=== PATIENT | male | born 1990 | race Caucasian/White ===

== ENCOUNTER 2018-04-08 20:53 | Emergency (ER) | payer OTHER, MEDICAID, SELFPAY ==
[2018-04-08 20:57] VITALS: BP 104/66; PULSE 80; RESP 20; TEMP 36.2; O2SAT 97; BMI 20.7
--- NOTE | 2018-04-08 21:56 | ED.ASTHMA ---
HPI - Asthma General Chief Complaint: Asthma Stated Complaint: ASTHMA ATTACK Time Seen by Provider: 04/08/18 21:51 Source: patient Mode of arrival: ambulatory Limitations: no limitations History of Present Illness HPI Narrative: Patient is a 27-year-old male who has a history of asthma. He ran out of his inhaler a few days ago he tried to get into his primary but has not made yet. Tonight he had acute shortness of breath an asthma attack. He was around his cats, he is allergic to cats on he does not want to get rid of his cats. Feeling better now that he is in the ED. complaint: asthma attack Related Data Home Medications Medication Instructions Recorded Confirmed albuterol sulfate [Proventil HFA] 2 puff INH Q4HP PRN 04/08/18 04/08/18 Previous Rx's Medication Instructions Recorded albuterol sulfate 2 puff INHALATION Q4-6H PRN #6.7 04/08/18 gram Allergies Allergy/AdvReac Type Severity Reaction Status Date / Time cat dander Allergy Intermediate Verified 04/08/18 21:02 Review of Systems Review of Systems All systems reviewed & are unremarkable except as noted in HPI and below Constitutional Denies chills, Denies fever(s), Denies lethargy and Denies weakness ENT Ears, Nose, Mouth, and Throat: Denies change in voice, Denies neck pain and Denies sore throat Cardiovascular Denies chest pain, Denies irregular heart rhythm, Denies lightheadedness, Denies palpitations and Denies orthopnea Respiratory Reports system reviewed and no additional complaints, except as docu Gastrointestinal Gastrointestinal: Denies abdominal pain, Denies change in bowel habits, Denies diarrhea, Denies nausea and Denies vomiting Musculoskeletal Denies neck pain Integumentary/Breasts Denies pruritus, Denies erythema, Denies rash and Denies wounds Neurologic Denies weakness Endocrine Denies palpitations Exam Initial Vital Signs Initial Vital Signs: Vital Signs Temperature 97.2 F L 04/08/18 20:57 Pulse Rate 80 04/08/18 20:57 Respiratory Rate 20 04/08/18 20:57 Blood Pressure 104/66 04/08/18 20:57 Pulse Oximetry 97 04/08/18 20:57 Const General: cooperative and well developed Nutritional Appearance: well nourished Orientation: alert, awake, oriented x3 and not confused Resp Effort & Inspection: normal respiratory effort, able to speak in complete sentences, no respiratory distress and no use of accessory muscles Auscultation: clear to auscultation bilaterally, no rales, no rhonchi and no wheezes Cardio Rate: regular rate Rhythm: regular rhythm Heart Sounds: no click, no gallops, no murmurs and no rubs Pulses: normal peripheral pulses Skin General: no rashes or lesions noted, No jaundice and No petechiae PFSH Medical History Asthma (Acute) Social History Smoking Status: Never smoker Course Orders Ordered: Discontinued Medications Albuterol (Ventolin Hfa Prepack) 1 box MISC SEEINSTR ONE Stop: 04/08/18 21:56 Last Admin: 04/08/18 21:58 Dose: 1 box Vital Signs - 8 hr 04/08/18 20:57 04/08/18 22:03 Temperature 97.2 F L Pulse Rate 80 Respiratory Rate 20 18 Blood Pressure 104/66 Pulse Oximetry 97 100 MDM - Asthma MDM Narrative Medical decision making narrative: The patient appears in no acute distress. He is feeling much better now that he is not around his cats. We discussed how triggers can make asthma worse. He understands. He has a spacer at home he is well informed on how to use it. Discharge Plan Departure Patient Disposition: Home, Self-Care Clinical Impression: Mild intermittent asthma without complication Discharge Date/Time: 04/08/18 22:00 Interventions: ED Discharge Assessment Last Done: 04/08/18 22:03 Instructions: Asthma -- Adult Activity Restrictions/Additional Instructions: *You have been diagnosed with asthma exacerbation *What to do: Try to avoid triggers *Take medications as directed *Follow up with your primary care provider in 2-3 days *Return to ER if you should have increasing chest pain, shortness of breath or any new, worsening or concerning symptoms Prescriptions: New albuterol sulfate 90 mcg/actuation HFA aerosol inhaler 2 puff INHALATION Q4-6H PRN (Reason: shortness of breath or wheezing) Qty: 6.7 RF: 0 No Action albuterol sulfate [Proventil HFA] 90 MCG/PUFF HFA aerosol inhaler 2 puff INH Q4HP PRN (Reason: Shortness Of Breath Or Wheezing) RF: 0 Referrals: Edward Daugherty MD [Primary Care Provider] -
[2018-04-08] MEDS: ALBUTEROL HFA PREPACK 1 BOX MISC (21:58)
[2018-04-08 22:03] VITALS: RESP 18; O2SAT 100
== END 2018-04-08 22:00 | disposition home or self-care (01) ==
PROVIDERS: Emergency Provider Emergency Medicine; PCP Family Medicine
DX: J45.901 Unspecified asthma with (acute) exacerbation (principal)
CPT/HCPCS: 99282; 99283

== ENCOUNTER 2018-05-02 11:56 | Emergency (ER) | payer OTHER, MEDICAID, SELFPAY ==
[2018-05-02 12:03] VITALS: BP 128/81; PULSE 93; RESP 20; TEMP 36.5; O2SAT 97; BMI 19.2
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
[2018-05-02] MEDS: ALBUTEROL/IPRATROPIUM 3 ML AMPUL 6 ML INH (12:14)
[2018-05-02] MEDS: ALBUTEROL 2.5 MG/3 ML NEB (ADULT) INH (12:23)
[2018-05-02 12:50] VITALS: PULSE 74; RESP 22; O2SAT 93
[2018-05-02] MEDS: predniSONE 20 MG TABLET 40 MG PO (13:13)
[2018-05-02 13:14] VITALS: BP 117/68; PULSE 102; RESP 26; O2SAT 98
[2018-05-02] MEDS: ALBUTEROL HFA PREPACK 1 BOX MISC (13:40)
== END 2018-05-02 13:58 | disposition home or self-care (01) ==
PROVIDERS: Emergency Provider Nurse Practitioner Family; PCP Family Medicine
DX: J45.901 Unspecified asthma with (acute) exacerbation (principal)
CPT/HCPCS: 94150; 94640; 99283; 99284; J7613

== ENCOUNTER 2018-06-17 11:55 | Emergency (ER) | payer OTHER, MEDICAID, SELFPAY ==
[2018-06-17 12:04] VITALS: BP 137/96; PULSE 93; RESP 24; TEMP 36.5; O2SAT 98
[2018-06-17] MEDS: ALBUTEROL/IPRATROPIUM 3 ML AMPUL INH (12:12)
[2018-06-17 12:20] VITALS: PULSE 87; RESP 20; O2SAT 97
--- NOTE | 2018-06-17 12:20 | ED_ITS ---
HPI - URI/Sore Throat General Chief Complaint: Upper Respiratory Symptoms Stated Complaint: asthma attack Time Seen by Provider: 06/17/18 12:16 History of Present Illness HPI Narrative: HPI 27-year-old male asthmatic presents with wheezing and shortness of breath has been progressively worsening over the last half day. Patient notes a history of provocation of his asthma with Dander exposure, patient recently moved into his mother's house with multiple cats. Ran out of his albuterol. Moved to the area one month ago and has yet to establish primary care. No recent cough, fevers, chills. No history of DVT or PE. ROS with no recent constitutional symptoms. Exam Gen: Pleasant, non-toxic appearing, resting comfortably HEENT: NC, AT, PEERL, EOMI. Resp: minimal extra wheezing, otherwise clear to auscultation bilaterally. Unlabored respirations with a normal work of breathing. Card: Regular rate and rhythm. Extremities warm and well perfused. GI: Non-distended. : Deferred MSK: No visible deformities, strength and tone without visually appreciable deficit. Neuro: AO x 3, no facial asymmetry, vision and hearing WNL. Heme/Lymph: Deferred Skin: Normal color with no visible lesions (other than noted above). Psych: Mood and affect appropriate. MDM Previous chart, nursing note, and vitals reviewed. A/P: 27-year-old male asthmatic presents with wheezing and shortness of breath has been progressively worsening over the last half day. Patient given albuterol by respiratory therapist prior to my evaluation, had tight wheezing throughout with near complete resolution following one albuterol no. Patient given Decadron, provided with albuterol, spacer, teaching, and outpatient prescription for a further inhaler. Patient provided with resources for PCP follow-up. Given history and vitals no indication for chest imaging. Impression: asthma exacerbation Related Data Home Medications Medication Instructions Recorded Confirmed albuterol sulfate [Proventil HFA] 2 puff INH Q4HP PRN 04/08/18 04/08/18 Previous Rx's Medication Instructions Recorded albuterol sulfate 2 puff INHALATION Q4-6H PRN #6.7 04/08/18 gram albuterol sulfate 2 puff INHALATION Q4-6H PRN #8 gram 05/02/18 prednisone 40 mg PO DAILY #8 tab 05/02/18 Allergies Allergy/AdvReac Type Severity Reaction Status Date / Time cat dander Allergy Intermediate Verified 04/08/18 21:02 PENDING SALE TO [facility] Social History Smoking Status: Never smoker Exam Initial Vital Signs Initial Vital Signs: Vital Signs Temperature 97.7 F 06/17/18 12:04 Pulse Rate 93 H 06/17/18 12:04 Respiratory Rate 24 06/17/18 12:04 Blood Pressure 137/96 H 06/17/18 12:04 Pulse Oximetry 98 06/17/18 12:04 Course Orders Ordered: Discontinued Medications Albuterol/Ipratropium (Duoneb) 3 ml INH NOW ONE Stop: 06/17/18 12:08 Last Admin: 06/17/18 12:12 Dose: 3 ml Vital Signs - 8 hr 06/17/18 12:04 Temperature 97.7 F Pulse Rate 93 H Respiratory Rate 24 Blood Pressure 137/96 H Pulse Oximetry 98 Discharge Plan Departure Prescriptions: No Action albuterol sulfate [Proventil HFA] 90 MCG/PUFF HFA aerosol inhaler 2 puff INH Q4HP PRN (Reason: Shortness Of Breath Or Wheezing) RF: 0 albuterol sulfate 90 mcg/actuation HFA aerosol inhaler 2 puff INHALATION Q4-6H PRN (Reason: shortness of breath or wheezing) Qty: 6.7 RF: 0 albuterol sulfate 90 mcg/actuation HFA aerosol inhaler 2 puff INHALATION Q4-6H PRN (Reason: shortness of breath or wheezing) Qty: 8 RF: 0 prednisone 20 mg tablet 40 mg PO DAILY Qty: 8 RF: 0
[2018-06-17 13:06] VITALS: BP 119/80; PULSE 86; RESP 14; O2SAT 96
[2018-06-17] MEDS: DEXAMETHASONE 4 MG TABLET 16 MG PO (13:14)
== END 2018-06-17 13:45 | disposition home or self-care (01) ==
PROVIDERS: Emergency Provider Emergency Medicine; PCP Family Medicine
DX: J45.901 Unspecified asthma with (acute) exacerbation (principal)
CPT/HCPCS: 94150; 94640; 99282; 99283

== ENCOUNTER 2018-07-15 18:51 | Emergency (ER) | payer OTHER, MEDICAID, SELFPAY ==
[2018-07-15 18:59] VITALS: BP 124/79; PULSE 79; RESP 20; TEMP 36.9; O2SAT 96
[2018-07-15 19:08] VITALS: PULSE 88; RESP 16; O2SAT 96
[2018-07-15] MEDS: ALBUTEROL 2.5 MG/3 ML NEB (ADULT) 5 MG INH (19:13)
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
[2018-07-15] MEDS: predniSONE 20 MG TABLET 40 MG PO (19:56)
[2018-07-15 20:43] VITALS: BP 115/65; PULSE 96; RESP 17; O2SAT 100
== END 2018-07-15 20:52 | disposition home or self-care (01) ==
PROVIDERS: Emergency Provider Nurse Practitioner Family; PCP Family Medicine
DX: J45.901 Unspecified asthma with (acute) exacerbation (principal)
CPT/HCPCS: 94640; 99282; 99283; J7613

== ENCOUNTER 2018-10-03 19:21 | Emergency (ER) | payer OTHER, MEDICAID, SELFPAY ==
[2018-10-03 19:26] VITALS: BP 138/88; PULSE 96; RESP 21; TEMP 37.1; O2SAT 97
[2018-10-03] MEDS: ALBUTEROL 2.5 MG/3 ML NEB (ADULT) INH (19:29)
[2018-10-03] MEDS: ALBUTEROL/IPRATROPIUM 3 ML AMPUL INH (19:29)
[2018-10-03 19:33] VITALS: PULSE 84; RESP 20; O2SAT 99
[2018-10-03] MEDS: predniSONE 20 MG TABLET 40 MG PO (19:36)
--- NOTE | 2018-10-03 19:37 | ED_ITS ---
HPI - Asthma <Shirley Iverson PA-C - Last Filed: 10/03/18 21:17> General Chief Complaint: Shortness of Breath/Dyspnea Stated Complaint: asthma attack Time Seen by Provider: 10/03/18 19:25 Source: patient Mode of arrival: ambulatory Limitations: no limitations History of Present Illness HPI Narrative: This 28-year-old male comes to ED with asthma attack today. He states that he ran out of his albuterol inhaler. He had mild symptoms in the last day and feels like the exacerbation is due to his allergies as he has noted increased watery itchy eyes. He states that a few hours ago, he began to have chest tightness and shortness of breath typical of his asthma, along with wheezing. He denies chest pain. He has not had any recent URI symptoms, fever , or other new symptoms. He states that he does have Symbicort at home, but moved and had not been able to find this, so just restarted today. He states that he needs to use his albuterol almost every day when he has it. Related Data Previous Rx's Medication Instructions Recorded albuterol sulfate See Label Instructions .ROUTE 06/17/18 .COMPLEX #18 gram albuterol sulfate [Ventolin HFA] 2 puff INHALATION Q4-6H PRN #6.7 07/15/18 gram prednisone 40 mg PO DAILY 3 Days #6 tab 10/03/18 Allergies Allergy/AdvReac Type Severity Reaction Status Date / Time cat dander Allergy Intermediate Verified 04/08/18 21:02 Review of Systems <Shirley Iverson PA-C - Last Filed: 10/03/18 21:17> Review of Systems All systems reviewed & are unremarkable except as noted in HPI and below Exam <Shirley Iverson PA-C - Last Filed: 10/03/18 21:17> Narrative Exam Narrative: GENERAL APPEARANCE: Patient sitting comfortably, in no distress. HEENT: PERRL, EOMI, normal oropharynx NECK/THYROID: Neck supple, no masses LUNGS: Generalized wheeze with reduced air entry throughout. Following nebulizers good air entry, very soft generalized expiratory wheeze HEART: Regular rate and rhythm without murmur, normal S1, S2, no S3 or S4. EXTREMITIES: No edema. NEUROLOGIC: Alert and oriented, normal speech, gait and coordination. Initial Vital Signs Initial Vital Signs: Vital Signs Temperature 98.7 F 10/03/18 19:26 Pulse Rate 96 H 10/03/18 19:26 Respiratory Rate 21 10/03/18 19:26 Blood Pressure 138/88 10/03/18 19:26 Pulse Oximetry 97 10/03/18 19:26 <Marianne Frost DO - Last Filed: 10/04/18 03:01> Initial Vital Signs Initial Vital Signs: Vital Signs Temperature 98.7 F 10/03/18 19:26 Pulse Rate 96 H 10/03/18 19:26 Respiratory Rate 21 10/03/18 19:26 Blood Pressure 138/88 10/03/18 19:26 Pulse Oximetry 97 10/03/18 19:26 Course <Shirley Iverson PA-C - Last Filed: 10/03/18 21:17> Additional Information: Patient is feeling markedly improved following nebulizer treatments and prednisone. He agreed to return if any acutely worsening symptoms again, otherwise will continue prednisone for a few days, restart Symbicort while on this, and was given an albuterol inhaler as well. He will also talk with his PCP about getting a new nebulizer machine for home. Orders Ordered: Discontinued Medications Albuterol (Ventolin) 2.5 mg INH NOW ONE Stop: 10/03/18 19:26 Last Admin: 10/03/18 19:29 Dose: 2.5 mg Albuterol (Ventolin Hfa Prepack) 1 box MISC SEEINSTR ONE Stop: 10/03/18 20:15 Last Admin: 10/03/18 20:22 Dose: 1 box Albuterol/Ipratropium (Duoneb) 3 ml INH NOW ONE Stop: 10/03/18 19:26 Last Admin: 10/03/18 19:29 Dose: 3 ml Prednisone (Deltasone) 40 mg PO NOW ONE Stop: 10/03/18 19:30 Last Admin: 10/03/18 19:36 Dose: 40 mg Vital Signs - 8 hr 10/03/18 19:26 10/03/18 19:33 10/03/18 20:34 Temperature 98.7 F Pulse Rate 96 H 84 85 Respiratory Rate 21 20 15 Blood Pressure 138/88 Blood Pressure [Right Arm] 109/63 Pulse Oximetry 97 99 98 <Marianne Frost DO - Last Filed: 10/04/18 03:01> Orders Ordered: Discontinued Medications Albuterol (Ventolin) 2.5 mg INH NOW ONE Stop: 10/03/18 19:26 Last Admin: 10/03/18 19:29 Dose: 2.5 mg Albuterol (Ventolin Hfa Prepack) 1 box MISC SEEINSTR ONE Stop: 10/03/18 20:15 Last Admin: 10/03/18 20:22 Dose: 1 box Albuterol/Ipratropium (Duoneb) 3 ml INH NOW ONE Stop: 10/03/18 19:26 Last Admin: 10/03/18 19:29 Dose: 3 ml Prednisone (Deltasone) 40 mg PO NOW ONE Stop: 10/03/18 19:30 Last Admin: 10/03/18 19:36 Dose: 40 mg Vital Signs - 8 hr 10/03/18 19:26 10/03/18 19:33 10/03/18 20:34 Temperature 98.7 F Pulse Rate 96 H 84 85 Respiratory Rate 21 20 15 Blood Pressure 138/88 Blood Pressure [Right Arm] 109/63 Pulse Oximetry 97 99 98 Discharge Plan Departure Patient Disposition: Home Clinical Impression: Asthma exacerbation Discharge Date/Time: 10/03/18 20:39 Interventions: ED Discharge Assessment Last Done: 10/03/18 20:38 Instructions: DI for Asthma -- Adult Activity Restrictions/Additional Instructions: These return right away as we talked about if you have any attending symptoms again. Otherwise, take your next dose of prednisone tomorrow (I have sent a prescription to the pharmacy for you). Use the albuterol inhaler we gave you as often as needed. Please restart your Symbicort when you get home tonight and use this regularly as previously instructed. Please follow-up with your PCP next week for recheck and determine whether any medication changes are needed. You should also get a new insurance referral for a nebulizer machine Prescriptions: New prednisone 20 mg tablet 40 mg PO DAILY 3 Days Qty: 6 RF: 0 No Action albuterol sulfate [Ventolin HFA] 90 mcg/actuation HFA aerosol inhaler 2 puff INHALATION Q4-6H PRN (Reason: shortness of breath or wheezing) Qty: 6.7 RF: 0 albuterol sulfate 90 mcg/actuation HFA aerosol inhaler See Label Instructions .ROUTE .COMPLEX Qty: 18 RF: 0 Referrals: Edward Daugherty MD [Primary Care Provider] - <Marianne Frost DO - Last Filed: 10/04/18 03:01> Cosign ED Attending Cosignature Attestation: I was immediately available in the department for consultation. This documentation has been reviewed and I agree with assessment and plan. Supervised by Marianne Frost DO
[2018-10-03] MEDS: ALBUTEROL HFA PREPACK 1 BOX MISC (20:22)
[2018-10-03 20:34] VITALS: BP 109/63; PULSE 85; RESP 15; O2SAT 98
== END 2018-10-03 20:39 | disposition home or self-care (01) ==
PROVIDERS: Emergency Provider Internal Medicine; PCP Family Medicine
DX: J45.901 Unspecified asthma with (acute) exacerbation (principal)
CPT/HCPCS: 94640; 99282; 99283; J7613

== ENCOUNTER 2018-11-23 19:43 | Emergency (ER) | payer OTHER, MEDICAID, SELFPAY ==
[2018-11-23 19:48] VITALS: BP 130/74; PULSE 103; RESP 22; TEMP 36.6; O2SAT 97; BMI 18.6
[2018-11-23 19:50] VITALS: O2SAT 98
[2018-11-23] MEDS: ALBUTEROL/IPRATROPIUM 3 ML AMPUL INH ×2 (19:50→19:54)
--- NOTE | 2018-11-23 20:03 | ED.ASTHMA ---
HPI - Asthma <Shirley Iverson PA-C - Last Filed: 11/23/18 22:31> General Chief Complaint: Asthma Stated Complaint: asthma attack Time Seen by Provider: 11/23/18 20:03 Source: patient Mode of arrival: ambulatory Limitations: no limitations History of Present Illness HPI Narrative: This 28-year-old male returns for recurrent acute asthma exacerbation that he believes is related to cat dander (he states that his cat was sleeping on his pillow and ran out a pillow case). He states that he started to have tight chest and wheeze from this. Took Benadryl at home which sometimes calms his symptoms, but tonight it did not so he came in for nebulizer treatment. He states that he has not been sick, has not had a fever, and is feeling much better after nebulizer treatments. He is certain this is a typical asthma exacerbation for him. He states that he has not had along symptoms, does not feel like he needs steroids for this. He states that he ran out of his albuterol just today and has not been able to get an appointment with his PCP since I last saw him in September. He does have steroid inhaler at home, which he thinks is Flovent but not sure of the dose. He does use that in the morning. Related Data Previous Rx's Medication Instructions Recorded albuterol sulfate See Label Instructions .ROUTE 06/17/18 .COMPLEX #18 gram albuterol sulfate [Ventolin HFA] 2 puff INHALATION Q4-6H PRN #6.7 07/15/18 gram albuterol sulfate 2 inhalation INHALATION Q4H #1 each 11/23/18 Allergies Allergy/AdvReac Type Severity Reaction Status Date / Time cat dander Allergy Intermediate Verified 04/08/18 21:02 Review of Systems <Shirley Iverson PA-C - Last Filed: 11/23/18 22:31> Review of Systems All systems reviewed & are unremarkable except as noted in HPI and below Exam <ANNE-MARIE Frost Last Filed: 11/23/18 22:31> Narrative Exam Narrative: GENERAL APPEARANCE: Patient sitting comfortably, in no distress. EYES: PERRL, EOMI. ORAL CAVITY: Normal oropharynx. THROAT: Clear. NECK/THYROID: Neck supple, full range of motion, no cervical lymphadenopathy. LUNGS: There is some very faint expiratory wheeze in the mid to upper left lobe, otherwise clear to auscultation. No cough on exam. Patient speaks easily in complete sentences HEART: RRR without murmur, nl S1, S2, no S3 or S4. Initial Vital Signs Initial Vital Signs: Vital Signs Temperature 97.9 F 11/23/18 19:48 Pulse Rate 103 H 11/23/18 19:48 Respiratory Rate 22 11/23/18 19:48 Blood Pressure 130/74 11/23/18 19:48 Pulse Oximetry 97 11/23/18 19:48 <Checo Esteban DO - Last Filed: 11/23/18 22:49> Initial Vital Signs Initial Vital Signs: Vital Signs Temperature 97.9 F 11/23/18 19:48 Pulse Rate 103 H 11/23/18 19:48 Respiratory Rate 22 11/23/18 19:48 Blood Pressure 130/74 11/23/18 19:48 Pulse Oximetry 97 11/23/18 19:48 Course <Shirley Iverson PA-C - Last Filed: 11/23/18 22:31> Orders Ordered: Discontinued Medications Albuterol/Ipratropium (Duoneb) 3 ml INH NOW ONE Stop: 11/23/18 19:50 Last Admin: 11/23/18 19:50 Dose: 3 ml Albuterol/Ipratropium (Duoneb) 3 ml INH NOW ONE Stop: 11/23/18 19:54 Last Admin: 11/23/18 19:54 Dose: 3 ml Vital Signs - 8 hr 11/23/18 19:48 11/23/18 19:50 Temperature 97.9 F Pulse Rate 103 H Respiratory Rate 22 Blood Pressure 130/74 Pulse Oximetry 97 98 <Checo Esteban DO - Last Filed: 11/23/18 22:49> Orders Ordered: Discontinued Medications Albuterol/Ipratropium (Duoneb) 3 ml INH NOW ONE Stop: 11/23/18 19:50 Last Admin: 11/23/18 19:50 Dose: 3 ml Albuterol/Ipratropium (Duoneb) 3 ml INH NOW ONE Stop: 11/23/18 19:54 Last Admin: 11/23/18 19:54 Dose: 3 ml Vital Signs - 8 hr 11/23/18 19:48 11/23/18 19:50 Temperature 97.9 F Pulse Rate 103 H Respiratory Rate 22 Blood Pressure 130/74 Pulse Oximetry 97 98 Discharge Plan Departure Patient Disposition: Home Clinical Impression: Asthma exacerbation Discharge Date/Time: 11/23/18 20:31 Interventions: ED Discharge Assessment Last Done: 11/23/18 20:31 Instructions: DI for Asthma -- Adult Activity Restrictions/Additional Instructions: I agree with you that your asthma is related to your allergies, so please use her albuterol as often as needed this evening with your spacer. When you are at the pharmacy, grain picker some [id number] Zyrtec (cetirizine, 10 mg), and start taking once daily when you get home. If you need extra you can take a 2nd dose or take Benadryl if you start to have an exacerbation. Since you have Flovent at home but are not sure what dose, if it is Flovent 44, do 8 puffs daily either once daily or 4 puffs twice daily. If it is Flovent 110, do 4 puffs daily. If it is Flovent 220, do [address] with Dr[address] Daugherty or 1 of his colleagues in the next week, and talk with them about having a home nebulizer and medication for this on hand at home. Please return right away if you have any acutely worsening symptoms again in the interim. Prescriptions: New albuterol sulfate 90 mcg/actuation aerosol powdr breath activated 2 inhalation INHALATION Q4H Qty: 1 RF: 0 No Action albuterol sulfate [Ventolin HFA] 90 mcg/actuation HFA aerosol inhaler 2 puff INHALATION Q4-6H PRN (Reason: shortness of breath or wheezing) Qty: 6.7 RF: 0 albuterol sulfate 90 mcg/actuation HFA aerosol inhaler See Label Instructions .ROUTE .COMPLEX Qty: 18 RF: 0 Referrals: Edward Daugherty MD [Primary Care Provider] - <Checo Esteban DO - Last Filed: 11/23/18 22:49> Cosign ED Attending Manny Attestation: I was available for consultation during this patient's emergency department encounter
== END 2018-11-23 20:31 | disposition home or self-care (01) ==
PROVIDERS: Emergency Provider Internal Medicine; PCP Family Medicine
DX: J45.909 Unspecified asthma, uncomplicated (principal)
CPT/HCPCS: 94640; 99282; 99283

== ENCOUNTER 2018-12-25 17:20 | Emergency (ER) | payer OTHER, MEDICAID, SELFPAY ==
[2018-12-25 17:31] VITALS: BP 124/90; PULSE 99; RESP 22; TEMP 36.8; O2SAT 95
[2018-12-25 17:36] VITALS: PULSE 95; RESP 16; O2SAT 99
[2018-12-25] MEDS: ALBUTEROL 2.5 MG/3 ML NEB (ADULT) INH (17:36)
[2018-12-25] MEDS: ALBUTEROL/IPRATROPIUM 3 ML AMPUL INH (17:36)
--- NOTE | 2018-12-25 18:19 | ED.ASTHMA ---
HPI - Asthma <Shirley Iverson PA-C - Last Filed: 12/25/18 20:42> General Chief Complaint: Asthma Stated Complaint: ASHMA ATTACK & COUGH Time Seen by Provider: 12/25/18 17:37 Source: patient Mode of arrival: ambulatory Limitations: no limitations History of Present Illness HPI Narrative: This 28-year-old male comes in due to recurrent asthma exacerbation. He states that he ran out of his albuterol yesterday. He states that he has some mild cold symptoms, mainly with stuffy nose and a bit of cough, and thinks this is what caused exacerbation this evening. He states that he is not had known fever, nor chills or sweats. He does not have sinus pain, earache or sore throat and states he does not feel achy enough that he thinks he has the flu. He states that he had sudden worsening with wheeze and shortness of breath which is typical for his exacerbations, and he feels a million times better after nebulizer treatment. He states that he has been using steroid inhaler, has a multitude of them at home and has follow-up with PCP planned on Thursday. He denies any other complaints. Related Data Previous Rx's Medication Instructions Recorded albuterol sulfate See Rx Instructions .ROUTE 06/17/18 .COMPLEX #18 gram albuterol sulfate [Ventolin HFA] 2 puff INHALATION Q4-6H PRN #6.7 07/15/18 gram albuterol sulfate 2 inhalation INHALATION Q4H #1 each 11/23/18 Allergies Allergy/AdvReac Type Severity Reaction Status Date / Time cat dander Allergy Intermediate Verified 04/08/18 21:02 Review of Systems <Shirley Iverson PA-C - Last Filed: 12/25/18 20:42> Review of Systems ROS Unobtainable: All systems reviewed & are unremarkable except as noted in HPI and below Exam <Shirley Iverson PA-C - Last Filed: 12/25/18 20:42> Narrative Exam Narrative: GENERAL APPEARANCE: Patient sitting comfortably, in no distress. HEAD: No sinus TTP. EYES: PERRL, EOMI. EARS: Normal auditory canals, TMS intact occluded by cerumen ORAL CAVITY: Normal oropharynx. THROAT: Clear. NECK/THYROID: Neck supple, full range of motion, no cervical lymphadenopathy. LUNGS: Generalized expiratory wheezes, no crackles, no cough on exam. Good AE, speaks comfortably in complete sentences HEART: RRR without murmur, nl S1, S2, no S3 or S4. Initial Vital Signs Initial Vital Signs: Vital Signs Temperature 98.3 F 12/25/18 17:31 Pulse Rate 99 H 12/25/18 17:31 Respiratory Rate 22 12/25/18 17:31 Blood Pressure 124/90 12/25/18 17:31 Pulse Oximetry 95 12/25/18 17:31 <Checo Esteban DO - Last Filed: 12/25/18 21:19> Initial Vital Signs Initial Vital Signs: Vital Signs Temperature 98.3 F 12/25/18 17:31 Pulse Rate 99 H 12/25/18 17:31 Respiratory Rate 22 12/25/18 17:31 Blood Pressure 124/90 12/25/18 17:31 Pulse Oximetry 95 12/25/18 17:31 PFSH <Shirley Iverson PA-C - Last Filed: 12/25/18 20:42> Family History Other Family history non-contributory Social History Smoking Status: Never smoker Social History Smoking Status: Never smoker Course <Shirley Iverson PA-C - Last Filed: 12/25/18 20:42> Orders Ordered: Discontinued Medications Albuterol (Ventolin) 2.5 mg INH NOW ONE Stop: 12/25/18 17:34 Last Admin: 12/25/18 17:36 Dose: 2.5 mg Albuterol (Ventolin Hfa Prepack) 1 box MISC SEEINSTR ONE Stop: 12/25/18 18:25 Last Admin: 12/25/18 18:33 Dose: 1 box Albuterol/Ipratropium (Duoneb) 3 ml INH NOW ONE Stop: 12/25/18 17:32 Last Admin: 12/25/18 17:36 Dose: 3 ml Vital Signs - 8 hr 12/25/18 17:31 12/25/18 17:36 12/25/18 18:43 Temperature 98.3 F Pulse Rate 99 H 95 H 112 H Respiratory Rate 22 16 20 Blood Pressure 124/90 119/87 Pulse Oximetry 95 99 97 <Checo Esteban DO - Last Filed: 12/25/18 21:19> Orders Ordered: Discontinued Medications Albuterol (Ventolin) 2.5 mg INH NOW ONE Stop: 12/25/18 17:34 Last Admin: 12/25/18 17:36 Dose: 2.5 mg Albuterol (Ventolin Hfa Prepack) 1 box MISC SEEINSTR ONE Stop: 12/25/18 18:25 Last Admin: 12/25/18 18:33 Dose: 1 box Albuterol/Ipratropium (Duoneb) 3 ml INH NOW ONE Stop: 12/25/18 17:32 Last Admin: 12/25/18 17:36 Dose: 3 ml Vital Signs - 8 hr 12/25/18 17:31 12/25/18 17:36 12/25/18 18:43 Temperature 98.3 F Pulse Rate 99 H 95 H 112 H Respiratory Rate 22 16 20 Blood Pressure 124/90 119/87 Pulse Oximetry 95 99 97 Discharge Plan Departure Patient Disposition: Home Clinical Impression: Asthma with acute exacerbation Qualifiers: Asthma severity: moderate Asthma persistence: persistent Qualified Code(s): J45.41 - Moderate persistent asthma with (acute) exacerbation Discharge Date/Time: 12/25/18 18:43 Interventions: ED Discharge Assessment Last Done: 12/25/18 18:43 Instructions: DI for Asthma -- Adult Activity Restrictions/Additional Instructions: Please return immediately as we talked about if you have acutely worsening symptoms again. Otherwise use the albuterol inhaler we have given you as needed. Continue your steroid inhalers. Follow up with her PCP on Thursday and take all of your steroid inhalers with you to determine the best treatment regimen. Prescriptions: No Action albuterol sulfate [Ventolin HFA] 90 mcg/actuation HFA aerosol inhaler 2 puff INHALATION Q4-6H PRN (Reason: shortness of breath or wheezing) Qty: 6.7 RF: 0 albuterol sulfate 90 mcg/actuation aerosol powdr breath activated 2 inhalation INHALATION Q4H Qty: 1 RF: 0 albuterol sulfate 90 mcg/actuation HFA aerosol inhaler See Rx Instructions .ROUTE .COMPLEX Qty: 18 RF: 0 Referrals: Edward Daugherty MD [Primary Care Provider] - <Checo Esteban DO - Last Filed: 12/25/18 21:19> Cosign ED Attending Carlieature Attestation: I was available for consultation during this patient's emergency department encounter
[2018-12-25] MEDS: ALBUTEROL HFA PREPACK 1 BOX MISC (18:33)
[2018-12-25 18:43] VITALS: BP 119/87; PULSE 112; RESP 20; O2SAT 97
== END 2018-12-25 18:43 | disposition home or self-care (01) ==
PROVIDERS: Emergency Provider Internal Medicine; PCP Family Medicine
DX: J45.41 Moderate persistent asthma with (acute) exacerbation (principal)
CPT/HCPCS: 94640; 99283; J7613

== ENCOUNTER 2018-12-26 17:45 | Emergency (ER) | payer OTHER, MEDICAID, SELFPAY ==
--- NOTE | 2018-12-26 17:52 | ED_ITS ---
HPI - Asthma <Shirley Iverson PA-C - Last Filed: 12/26/18 22:00> General Chief Complaint: Shortness of Breath/Dyspnea Stated Complaint: asthma attack Time Seen by Provider: 12/26/18 17:49 Source: patient Mode of arrival: ambulatory Limitations: no limitations History of Present Illness HPI Narrative: this 28-year-old male with a long history of asthma exacerbations returns due to worsening symptoms today. He states he is feeling worse in general with more cough and green sputum production, generalized body aches, and his ribs are sore. He has felt tight in the chest and had wheeze and dyspnea, and states his albuterol only works for a few minutes. He thinks he has had some fever today as well as he has felt sweaty prior to coming here. he has not had flu vaccine. He states he does not have earache or sinus pain. Minimal sore throat. He denies any other new complaints and is feeling markedly improved following nebulizer treatment. Related Data Previous Rx's Medication Instructions Recorded albuterol sulfate See Rx Instructions .ROUTE 06/17/18 .COMPLEX #18 gram albuterol sulfate [Ventolin HFA] 2 puff INHALATION Q4-6H PRN #6.7 07/15/18 gram albuterol sulfate 2 inhalation INHALATION Q4H #1 each 11/23/18 Allergies Allergy/AdvReac Type Severity Reaction Status Date / Time cat dander Allergy Intermediate Verified 04/08/18 21:02 Review of Systems <Shirley Iverson PA-C - Last Filed: 12/26/18 22:00> Review of Systems ROS Unobtainable: All systems reviewed & are unremarkable except as noted in HPI and below Exam <Shirley Iverson PA-C - Last Filed: 12/26/18 22:00> Initial Vital Signs Initial Vital Signs: Vital Signs Pulse Rate 130 H 12/26/18 17:55 Respiratory Rate 18 12/26/18 17:55 Pulse Oximetry 96 12/26/18 17:55 GENERAL APPEARANCE: Patient sitting comfortably after nebulizer treatments, in no distress. Initially speaking in short sentences HEAD: No sinus TTP. EYES: PERRL, EOMI. EARS: Normal auditory canals, TMS intact occluded by cerumen ORAL CAVITY: Normal oropharynx. THROAT: Clear. NECK/THYROID: Neck supple, full range of motion, no cervical lymphadenopathy. LUNGS: Generalized expiratory wheezes, no crackles, no cough on exam. Good AE, speaks comfortably in complete sentences following nebulizer treatments, still with generalized wheeze. Prior to discharge, patient has good breath sounds with very minimal expiratory wheeze and appears comfortable. HEART: RRR without murmur, nl S1, S2, no S3 or S4. <Checo Esteban DO - Last Filed: 12/26/18 22:30> Initial Vital Signs Initial Vital Signs: Vital Signs Pulse Rate 130 H 12/26/18 17:55 Respiratory Rate 18 12/26/18 17:55 Pulse Oximetry 96 12/26/18 17:55 PFSH <Shirley Iverson PA-C - Last Filed: 12/26/18 22:00> Social History Smoking Status: Never smoker Course <Shirley Iverson PA-C - Last Filed: 12/26/18 22:00> Additional Information: Patient is feeling much improved and wishes to be discharged home. He does not feel that he needs to come into the hospital tonight. He agrees to return if any acute worsening again. He was given another albuterol inhaler and a prednisone Pre pack. He will take 40 mg of prednisone tomorrow and follow up with Dr. Daugherty as planned tomorrow. Advised him to review his medications and again to discuss ordering a nebulizer for home use Orders Ordered: ED Orders 12/26/18 17:51 Influenza A and B by PCR Rapid Stat 12/26/18 18:17 XR chest 1V Stat Discontinued Medications Albuterol (Ventolin) 2.5 mg INH NOW ONE Stop: 12/26/18 17:50 Last Admin: 12/26/18 17:54 Dose: 2.5 mg Albuterol (Ventolin) 2.5 mg INH NOW ONE Stop: 12/26/18 18:58 Last Admin: 12/26/18 18:59 Dose: 2.5 mg Albuterol (Ventolin) 2.5 mg INH NOW ONE Stop: 12/26/18 19:00 Last Admin: 12/26/18 19:01 Dose: 2.5 mg Albuterol (Ventolin Hfa Prepack) 1 box MISC SEEINSTR ONE Stop: 12/26/18 19:27 Last Admin: 12/26/18 19:43 Dose: 1 box Albuterol/Ipratropium (Duoneb) 3 ml INH NOW ONE Stop: 12/26/18 17:50 Last Admin: 12/26/18 17:54 Dose: 3 ml Dexamethasone (Decadron) 10 mg IV NOW ONE Stop: 12/26/18 17:50 Last Admin: 12/26/18 18:00 Dose: 10 mg Sodium Chloride (Normal Saline 0.9%) 1,000 mls @ 1,000 mls/hr IV BOLUS ONE Stop: 12/26/18 19:16 Last Infusion: 12/26/18 19:50 Dose: 0 mls/hr Admin: 12/26/18 18:25 Dose: 1,000 mls/hr Ketorolac Tromethamine (Toradol) 30 mg IV NOW ONE Stop: 12/26/18 18:18 Last Admin: 12/26/18 18:24 Dose: 30 mg Prednisone (Deltasone 20 Mg Prepack) 1 bottle [facility] SEEINSTR ONE Stop: 12/26/18 19:27 Last Admin: 12/26/18 19:43 Dose: 1 bottle Vital Signs - 8 hr 12/26/18 17:55 12/26/18 18:02 12/26/18 19:01 Temperature 100.5 F H Pulse Rate 130 H 130 H 120 H Respiratory Rate 18 18 20 Blood Pressure 146/97 H Pulse Oximetry 96 96 92 12/26/18 19:50 Temperature Pulse Rate 91 H Respiratory Rate 19 Blood Pressure 122/91 H Pulse Oximetry 94 <Checo Estbean DO - Last Filed: 12/26/18 22:30> Orders Ordered: ED Orders 12/26/18 17:51 Influenza A and B by PCR Rapid Stat 12/26/18 18:17 XR chest 1V Stat Discontinued Medications Albuterol (Ventolin) 2.5 mg INH NOW ONE Stop: 12/26/18 17:50 Last Admin: 12/26/18 17:54 Dose: 2.5 mg Albuterol (Ventolin) 2.5 mg INH NOW ONE Stop: 12/26/18 18:58 Last Admin: 12/26/18 18:59 Dose: 2.5 mg Albuterol (Ventolin) 2.5 mg INH NOW ONE Stop: 12/26/18 19:00 Last Admin: 12/26/18 19:01 Dose: 2.5 mg Albuterol (Ventolin Hfa Prepack) 1 box MISC SEEINSTR ONE Stop: 12/26/18 19:27 Last Admin: 12/26/18 19:43 Dose: 1 box Albuterol/Ipratropium (Duoneb) 3 ml INH NOW ONE Stop: 12/26/18 17:50 Last Admin: 12/26/18 17:54 Dose: 3 ml Dexamethasone (Decadron) 10 mg IV NOW ONE Stop: 12/26/18 17:50 Last Admin: 12/26/18 18:00 Dose: 10 mg Sodium Chloride (Normal Saline 0.9%) 1,000 mls @ 1,000 mls/hr IV BOLUS ONE Stop: 12/26/18 19:16 Last Infusion: 12/26/18 19:50 Dose: 0 mls/hr Admin: 12/26/18 18:25 Dose: 1,000 mls/hr Ketorolac Tromethamine (Toradol) 30 mg IV NOW ONE Stop: 12/26/18 18:18 Last Admin: 12/26/18 18:24 Dose: 30 mg Prednisone (Deltasone 20 Mg Prepack) 1 bottle MISC SEEINSTR ONE Stop: 12/26/18 19:27 Last Admin: 12/26/18 19:43 Dose: 1 bottle Vital Signs - 8 hr 12/26/18 17:55 12/26/18 18:02 12/26/18 19:01 Temperature 100.5 F H Pulse Rate 130 H 130 H 120 H Respiratory Rate 18 18 20 Blood Pressure 146/97 H Pulse Oximetry 96 96 92 12/26/18 19:50 Temperature Pulse Rate 91 H Respiratory Rate 19 Blood Pressure 122/91 H Pulse Oximetry 94 MDM - Asthma <Shirley Iverson PA-C - Last Filed: 12/26/18 22:00> Lab Data Lab Results 12/26/18 Range/Units 17:51 Influenza A & B (PCR) Negative (Negative) Imaging Data Chest x-ray: Radiologist's impression: [address] [address] XRay Report Signed Patient: Fritz Ware [facility]#: [id number] : 1990Acct:[id number] Age/Sex: MDate of Service: 12/26/18 Loc: ED Accession Number: [id number] Procedure: XR chest 1V Ordering Provider: Shirley Iverson P.A-C PROCEDURE: XR CHEST 1V INDICATIONS: increased cough, sputum, asthma TECHNIQUE: One view of the chest was acquired. COMPARISON: None. FINDINGS: Surgical changes and devices: None. Lungs and pleura: Lungs are clear. No pleural effusions or pneumothorax. Mediastinum: Mediastinal contours appear normal. Heart size is normal. Bones and chest wall: No suspicious bony lesions. Overlying soft tissues appear unremarkable. IMPRESSION: No acute disease Dictated by: Puma Kaur M.D. on 12/26/2018 at 19:05 Approved by: Puma Kaur M.D. on 12/26/2018 at 19:06 <Checo Esteban DO - Last Filed: 12/26/18 22:30> Lab Data Lab Results 12/26/18 Range/Units 17:51 Influenza A & B (PCR) Negative (Negative) Discharge Plan Departure Patient Disposition: Home Clinical Impression: Viral URI Asthma with acute exacerbation Qualifiers: Asthma severity: moderate Asthma persistence: persistent Qualified Code(s): J45 .41 - Moderate persistent asthma with (acute) exacerbation Discharge Date/Time: 12/26/18 19:53 Interventions: ED Discharge Assessment Last Done: 12/26/18 19:50 Instructions: DI for Asthma -- Adult, DI for Viral Upper Respiratory Infection -- Adult Activity Restrictions/Additional Instructions: return to the ED immediately if your feeling acutely worse. You should call 911 if your symptoms are severe. Otherwise, please take 40 mg of prednisone in the morning, and we have given you enough to continue on for a few days depending upon what Dr. Daugherty says that your visit tomorrow (take it with you). Continue your steroid inhaler and use the albuterol as often as needed this evening. please talk with Dr. Daugherty tomorrow about getting a nebulizer machine to have at home Prescriptions: No Action albuterol sulfate [Ventolin HFA] 90 mcg/actuation HFA aerosol inhaler 2 puff INHALATION Q4-6H PRN (Reason: shortness of breath or wheezing) Qty: 6.7 RF: 0 albuterol sulfate 90 mcg/actuation aerosol powdr breath activated 2 inhalation INHALATION Q4H Qty: 1 RF: 0 albuterol sulfate 90 mcg/actuation HFA aerosol inhaler See Rx Instructions .ROUTE .COMPLEX Qty: 18 RF: 0 Referrals: Edward Daugherty MD [Primary Care Provider] - <Checo Esteban DO - Last Filed: 12/26/18 22:30> Cosign ED Attending Manny Attestation: I was available for consultation during this patient's emergency department encounter
[2018-12-26] MEDS: ALBUTEROL 2.5 MG/3 ML NEB (ADULT) INH ×3 (17:54→19:01)
[2018-12-26] MEDS: ALBUTEROL/IPRATROPIUM 3 ML AMPUL INH (17:54)
[2018-12-26 17:55] VITALS: PULSE 130; RESP 18; O2SAT 96
[2018-12-26] MEDS: DEXAMETHASONE 10 MG/ML VIAL IV (18:00)
[2018-12-26 18:02] VITALS: BP 146/97; PULSE 130; RESP 18; TEMP 38.1; O2SAT 96
[2018-12-26 18:17] LABS: Influenza A and B by PCR Rapid Negative (Negative)
--- NOTE | 2018-12-26 18:17 | DI.RAD.S_ITS ---
PROCEDURE: XR CHEST 1V INDICATIONS: increased cough, sputum, asthma TECHNIQUE: One view of the chest was acquired. COMPARISON: None. FINDINGS: Surgical changes and devices: None. Lungs and pleura: Lungs are clear. No pleural effusions or pneumothorax. Mediastinum: Mediastinal contours appear normal. Heart size is normal. Bones and chest wall: No suspicious bony lesions. Overlying soft tissues appear unremarkable. IMPRESSION: No acute disease Dictated by: Puma Kaur M.D. on 12/26/2018 at 19:05 Approved by: Puma Kaur M.D. on 12/26/2018 at 19:06
[2018-12-26] MEDS: KETOROLAC 60 MG/2 ML VIAL 30 MG IV (18:24)
[2018-12-26] MEDS: SODIUM CHLORIDE 0.9% 1,000 ML 1000 ML IV (18:25)
[2018-12-26 19:01] VITALS: PULSE 120; RESP 20; O2SAT 92
[2018-12-26] MEDS: ALBUTEROL HFA PREPACK 1 BOX MISC (19:43)
[2018-12-26] MEDS: predniSONE 20 MG PREPACK 1 BOTTLE MISC (19:43)
[2018-12-26 19:50] VITALS: BP 122/91; PULSE 91; RESP 19; O2SAT 94
== END 2018-12-26 19:53 | disposition home or self-care (01) ==
PROVIDERS: Emergency Provider Internal Medicine; PCP Family Medicine
DX: J06.9 Acute upper respiratory infection, unspecified (principal)
CPT/HCPCS: 36591; 71045; 87400; 94640; 96361; 96374; 96375; 99283; 99284; J1100; J1885; J7613

== ENCOUNTER 2019-03-07 20:31 | Emergency (ER) | payer OTHER, MEDICAID, SELFPAY ==
[2019-03-07 20:35] VITALS: BP 128/81; PULSE 97; RESP 22; TEMP 36.6; O2SAT 98
--- NOTE | 2019-03-07 20:43 | PC.NURSE ---
Woke up from nap and couldn't breathe. Ran out of his rescue inhaler. Improved after breathing treatment. Speaking in full sentences.
[2019-03-07] MEDS: ALBUTEROL 2.5 MG/3 ML NEB (ADULT) INH ×2 (20:45→21:07)
[2019-03-07] MEDS: ALBUTEROL HFA PREPACK 1 BOX MISC (21:02)
--- NOTE | 2019-03-07 21:05 | PC.NURSE ---
pt reports soa greatly improved, speaking in full sentences, requesting discharge
[2019-03-07 21:15] VITALS: BP 122/80; PULSE 91; RESP 18; O2SAT 99
--- NOTE | 2019-03-08 03:20 | ED_ITS ---
HPI - SOB/Dyspnea General Chief Complaint: Shortness of Breath/Dyspnea Stated Complaint: Asthma Time Seen by Provider: 03/07/19 20:32 Source: patient and family Mode of arrival: ambulatory Limitations: no limitations History of Present Illness 28-year-old male nonsmoker with history of asthma presents with wheezing and difficulty breathing the course of the day. He admittedly ran out of his albuterol yesterday. He denies any fever or chills. He is not out of his other medications which he has been taking as prescribed. MD Complaint: shortness of breath Onset (ago): hour(s) Context: recent illness Severity: mild Consistency/Duration: constant Relieving factors: bronchodilators Exacerbating factors: movement and coughing Known history of: asthma Associated symptoms: denies other symptoms Treatment prior to arrival: none Related Data Previous Rx's Medication Instructions Recorded albuterol sulfate See Rx Instructions .ROUTE 06/17/18 .COMPLEX #18 gram albuterol sulfate [Ventolin HFA] 2 puff INHALATION Q4-6H PRN #6.7 07/15/18 gram albuterol sulfate 2 inhalation INHALATION Q4H #1 each 11/23/18 prednisone 40 mg PO DAILY 5 Days tab 03/07/19 Allergies Allergy/AdvReac Type Severity Reaction Status Date / Time cat dander Allergy Intermediate Verified 04/08/18 21:02 Review of Systems Constitutional Denies chills, Denies fever(s), Denies lethargy and Denies weakness Eyes Denies change in vision, Denies eye discharge, Denies irritation and Denies loss of vision ENT Ears, Nose, Mouth, and Throat: Denies change in voice, Denies neck pain and Denies sore throat Cardiovascular Denies chest pain, Denies irregular heart rhythm, Denies lightheadedness, Denies palpitations, Reports dyspnea, Denies dyspnea on exertion and Denies orthopnea Respiratory Denies cough, Reports dyspnea, Denies dyspnea on exertion and Reports wheezing Gastrointestinal Gastrointestinal: Denies abdominal pain, Denies change in bowel habits, Denies diarrhea, Denies nausea and Denies vomiting Genitourinary Denies hematuria, Denies flank pain, Denies urinary incontinence and Denies urinary urgency Musculoskeletal Denies neck pain Integumentary/Breasts Denies pruritus, Denies erythema, Denies rash and Denies wounds Neurologic Denies confusion, Denies loss of vision and Denies weakness Psychiatric Denies anxiety, Denies confusion, Denies depression, Denies homicidal ideation and Denies suicidal ideation Endocrine Denies palpitations Hematologic/Lymphatic Denies easy bruising Allergic/Immunologic Reports wheezing [facility] Medical History Asthma (Chronic) Sternal fracture (Chronic) Family History Other Family history non-contributory Social History Smoking Status: Never smoker Family History Other Family history non-contributory Social History Smoking Status: Never smoker Exam Narrative Exam Narrative: GEN: AOx3 and in mild distress EYES: Pupils are equal, round, and reactive to light and accommodation. Extraoccular muscles are intact bilaterally. There is no subconjunctival hemorrhage or exudate. CHEST: Lungs are notable for expiratory wheeze. Heart rate is regular rhythm, there are no murmurs, clicks, rubs, or gallops. There is no chest wall tenderness. ABD: Abdomen is soft and nontender. There is no guarding or rebound. Bowel sounds are normal in all 4 quadrants. There is no mass or organomegaly. EXT: Full painless ROM of all extremities with no loss of sensation or strength. SKIN: Warm, pink, and dry. No erythema or rash Initial Vital Signs Initial Vital Signs: Vital Signs Temperature 97.8 F 03/07/19 20:35 Pulse Rate 97 H 03/07/19 20:35 Respiratory Rate 22 03/07/19 20:35 Blood Pressure 128/81 03/07/19 20:35 Pulse Oximetry 98 03/07/19 20:35 Course Orders Ordered: Discontinued Medications Albuterol (Ventolin Hfa Prepack) 1 box MISC SEEINSTR ONE Stop: 03/07/19 20:42 Last Admin: 03/07/19 21:02 Dose: 1 box Albuterol (Ventolin) 2.5 mg INH Q20M ANDREA Stop: 03/07/19 21:56 Last Admin: 04/22/19 21:07 Dose: 2.5 mg Admin: 03/07/19 20:45 Dose: 2.5 mg Vital Signs - 8 hr 03/07/19 20:35 03/07/19 21:15 Temperature 97.8 F Pulse Rate 97 H 91 H Respiratory Rate 22 18 Blood Pressure 128/81 122/80 Pulse Oximetry 98 99 Discharge Plan Departure Patient Disposition: Home Clinical Impression: Asthma exacerbation Qualifiers: Asthma severity: mild Asthma persistence: intermittent Qualified Code(s): J45.21 - Mild intermittent asthma with (acute) exacerbation Discharge Date/Time: 03/07/19 21:15 Interventions: ED Discharge Assessment Last Done: 03/07/19 21:15 Instructions: DI for Asthma -- Adult Activity Restrictions/Additional Instructions: *You have been diagnosed with [ Asthma exacerbation] *What to do: *Take medications as directed *Follow up with your primary care provider in 2-3 days, call for an appointment. Let them know you were seen in the Emergency Department and that we ask that you be seen in follow up *Return to ER if you should have any new, worsening or concerning symptoms Prescriptions: New prednisone 20 mg tablet 40 mg PO DAILY 5 Days RF: 0 No Action albuterol sulfate [Ventolin HFA] 90 mcg/actuation HFA aerosol inhaler 2 puff INHALATION Q4-6H PRN (Reason: shortness of breath or wheezing) Qty: 6.7 RF: 0 albuterol sulfate 90 mcg/actuation aerosol powdr breath activated 2 inhalation INHALATION Q4H Qty: 1 RF: 0 albuterol sulfate 90 mcg/actuation HFA aerosol inhaler See Rx Instructions .ROUTE .COMPLEX Qty: 18 RF: 0 Referrals: Edward Daugherty MD [Primary Care Provider] -
== END 2019-03-07 21:15 | disposition home or self-care (01) ==
LOC: ED 21:11
PROVIDERS: Emergency Provider Emergency Medicine; PCP Family Medicine
DX: J45.21 Mild intermittent asthma with (acute) exacerbation (principal)
CPT/HCPCS: 99282; 99283; J7613

== ENCOUNTER 2019-03-16 19:50 | Emergency (ER) | payer OTHER, MEDICAID, SELFPAY ==
[2019-03-16 19:56] VITALS: BP 109/79; PULSE 90; RESP 18; TEMP 36.6; O2SAT 100; BMI 20.2
[2019-03-16] MEDS: ALBUTEROL 2.5 MG/3 ML NEB (ADULT) INH (20:05)
--- NOTE | 2019-03-16 20:50 | ED.ASTHMA ---
HPI - Asthma <GILMA Gamez - Last Filed: 03/16/19 20:52> General Chief Complaint: Asthma Stated Complaint: STATES ASTHMA ATTACK Time Seen by Provider: 03/16/19 20:05 Source: patient Mode of arrival: ambulatory Limitations: no limitations History of Present Illness HPI Narrative: The patient is a 28-year-old male wanted to this department history of asthma who presents with a chief complaint of an asthma attack. He states he really suddenly finished a course of steroids and has an appointment with his doctor on Thursday. He states he ran out of his albuterol and needs a refill. He states he was having some wheezing upon arrival. He denies fevers nausea vomiting diarrhea. He denies any current difficulty breathing on exam. Related Data Previous Rx's Medication Instructions Recorded albuterol sulfate See Rx Instructions .ROUTE 06/17/18 .COMPLEX #18 gram albuterol sulfate [Ventolin HFA] 2 puff INHALATION Q4-6H PRN #6.7 07/15/18 gram albuterol sulfate 2 inhalation INHALATION Q4H #1 each 11/23/18 albuterol sulfate [Ventolin HFA] 2 puff INHALATION Q4-6H PRN #18 03/16/19 gram Allergies Allergy/AdvReac Type Severity Reaction Status Date / Time cat dander Allergy Intermediate Verified 04/08/18 21:02 Review of Systems <GILMA Gamez - Last Filed: 03/16/19 20:52> Review of Systems GENERAL: Denies chills, fatigue, malaise, fever, sweats. HEENT: Denies sinus pain, ear pain, sore throat, difficulty swallowing, dizziness. RESPIRATORY: See HPI CARDIOVASCULAR: Denies chest pain, palpitations, orthopnea, edema, GASTROINTESTINAL: Denies nausea, vomiting, abdominal pain, diarrhea, constipation, melena. : Denies dysuria, frequency, incontinence, hematuria, urinary retention. MUSCULOSKELETAL: denies weakness, joint pain, or bony pain SKIN: Denies rash, skin lesions, or other NEUROLOGIC: Denies weakness, headache, numbness, change in speech, confusion, seizures, incoordination. PSYCHIATRIC: No concerning psychosocial issues. 12 point review of systems is negative except for those stated above Exam <GILMA Gamez - Last Filed: 03/16/19 20:52> Narrative Exam Narrative: GENERAL: This is a well-nourished, well-developed patient, no acute distress HEAD: Atraumatic. Normocephalic. No temporal or scalp tenderness. EYES: Pupils equal round and reactive. Extraocular motions intact. No scleral icterus. No injection or drainage. NECK: Trachea midline. No JVD or lymphadenopathy. Supple, nontender, no meningeal signs. CARDIOVASCULAR: Regular rate and rhythm RESPIRATORY: Clear to auscultation. Breath sounds equal bilaterally. No wheezes, rales, or rhonchi. No cough on exam. No accessory muscle use. No increased respiratory effort. EXTREMITIES: No clubbing, cyanosis, or edema. No joint tenderness, effusion, or edema noted. BACK: Nontender without deformity or crepitance. No flank tenderness. NEURO: AOx3. SKIN: No rash or erythema. Initial Vital Signs Initial Vital Signs: Vital Signs Temperature 98 F 03/16/19 19:56 Pulse Rate 90 03/16/19 19:56 Respiratory Rate 18 03/16/19 19:56 Blood Pressure 109/79 03/16/19 19:56 Pulse Oximetry 100 03/16/19 19:56 <Checo Esteban DO - Last Filed: 03/16/19 22:58> Initial Vital Signs Initial Vital Signs: Vital Signs Temperature 98 F 03/16/19 19:56 Pulse Rate 90 03/16/19 19:56 Respiratory Rate 18 03/16/19 19:56 Blood Pressure 109/79 03/16/19 19:56 Pulse Oximetry 100 03/16/19 19:56 PFSH <CHASIDY Gamez - Last Filed: 03/16/19 20:52> Medical History Asthma (Chronic) Sternal fracture (Chronic) Family History Other Family history non-contributory Social History Smoking Status: Never smoker Family History Other Family history non-contributory Social History Smoking Status: Never smoker Course <CHASIDY Gamez - Last Filed: 03/16/19 20:52> Orders Ordered: Discontinued Medications Albuterol (Ventolin) 2.5 mg INH NOW ONE Stop: 03/16/19 20:04 Last Admin: 03/16/19 20:05 Dose: 2.5 mg Vital Signs - 8 hr 03/16/19 19:56 03/16/19 20:58 Temperature 98 F Pulse Rate 90 Respiratory Rate 18 18 Blood Pressure 109/79 Pulse Oximetry 100 <Checo Esteban DO - Last Filed: 03/16/19 22:58> Orders Ordered: Discontinued Medications Albuterol (Ventolin) 2.5 mg INH NOW ONE Stop: 03/16/19 20:04 Last Admin: 03/16/19 20:05 Dose: 2.5 mg Vital Signs - 8 hr 03/16/19 19:56 03/16/19 20:58 Temperature 98 F Pulse Rate 90 Respiratory Rate 18 18 Blood Pressure 109/79 Pulse Oximetry 100 MDM - Asthma <CHASIDY Gamez - Last Filed: 03/16/19 20:52> MDM Narrative Medical decision making narrative: The patient is a 28-year-old male with history of asthma who presents with chief complaint of wheezing and needing a refill of his albuterol. He received 1 breathing treatment in the emergency department. He declined a chest x-ray. He declined a 2nd breathing treatment. He states he does not want another steroid burst. I did give him a refill of his Ventolin inhaler of long with return precautions of coming back with increased shortness of breath or respiratory distress. States he will follow up with his appointment on Thursday. Patient has no questions or concerns upon discharge Discharge Plan Departure Patient Disposition: Home Clinical Impression: Asthma exacerbation Qualifiers: Asthma severity: unspecified severity Asthma persistence: unspecified Qualified Code(s): J45.901 - Unspecified asthma with (acute) exacerbation Discharge Date/Time: 03/16/19 20:30 Interventions: ED Discharge Assessment Last Done: 03/16/19 20:58 Instructions: DI for Asthma -- Adult Activity Restrictions/Additional Instructions: I am refilling her Ventolin inhaler. Please follow up with her physician as we discussed and scheduled on Thursday. Please come back to the emergency department for any acute concerns. Prescriptions: New albuterol sulfate [Ventolin HFA] 90 mcg/actuation HFA aerosol inhaler 2 puff INHALATION Q4-6H PRN (Reason: shortness of breath or wheezing) Qty: 18 RF: 0 No Action albuterol sulfate [Ventolin HFA] 90 mcg/actuation HFA aerosol inhaler 2 puff INHALATION Q4-6H PRN (Reason: shortness of breath or wheezing) Qty: 6.7 RF: 0 albuterol sulfate 90 mcg/actuation aerosol powdr breath activated 2 inhalation INHALATION Q4H Qty: 1 RF: 0 albuterol sulfate 90 mcg/actuation HFA aerosol inhaler See Rx Instructions .ROUTE .COMPLEX Qty: 18 RF: 0 Referrals: Edward Daugherty MD [Primary Care Provider] - <Checo Esteban DO - Last Filed: 03/16/19 22:58> Cosign ED Attending Manny Attestation: I was available for consultation during this patient's emergency department encounter
[2019-03-16 20:58] VITALS: RESP 18
== END 2019-03-16 20:30 | disposition home or self-care (01) ==
PROVIDERS: Emergency Provider Nurse Practitioner Family; Family Provider Family Medicine; PCP Family Medicine
DX: J45.901 Unspecified asthma with (acute) exacerbation (principal)
CPT/HCPCS: 99282; 99283; J7613

== ENCOUNTER 2019-05-18 21:46 | Emergency (ER) | payer OTHER, MEDICAID, SELFPAY ==
[2019-05-18 21:51] VITALS: BP 127/102; PULSE 84; RESP 20; TEMP 36.8; O2SAT 10
--- NOTE | 2019-05-18 21:52 | ED.URI ---
HPI - URI/Sore Throat General Chief Complaint: Upper Respiratory Symptoms Stated Complaint: asthma attack Time Seen by Provider: 05/18/19 21:46 Source: patient Mode of arrival: ambulatory Limitations: no limitations History of Present Illness HPI Narrative: 28-year-old male nonsmoker with history of asthma presents with shortness of breath, wheeze and a bronchospastic cough worsening over the day. Has a known history of asthma and states he ran out of his inhaler. He recently moved to the area and is out of his medications. He recently got a nebulizer but has no nebs. He does have a chamber at home. He denies any fever chills nor production of sputum MD Complaint: cough Onset (ago): hour(s) Duration: constant Severity: moderate Relieving factors: nothing Exacerbating factors: exertion Able to tolerate fluids by mouth: Yes Associated symptoms: denies other symptoms Treatments prior to arrival: none Related Data Previous Rx's Medication Instructions Recorded albuterol sulfate See Rx Instructions .ROUTE 06/17/18 .COMPLEX #18 gram albuterol sulfate [Ventolin HFA] 2 puff INHALATION Q4-6H PRN #6.7 07/15/18 gram albuterol sulfate 2 inhalation INHALATION Q4H #1 each 11/23/18 albuterol sulfate [Ventolin HFA] 2 puff INHALATION Q4-6H PRN #18 03/16/19 gram albuterol sulfate 2.5 mg INHALATION Q4-6H #180 ml 05/18/19 Allergies Allergy/AdvReac Type Severity Reaction Status Date / Time cat dander Allergy Intermediate Verified 04/08/18 21:02 Review of Systems Constitutional Denies chills, Denies fever(s), Denies lethargy and Denies weakness Eyes Denies change in vision, Denies eye discharge, Denies irritation and Denies loss of vision ENT Ears, Nose, Mouth, and Throat: Denies change in voice, Denies neck pain and Denies sore throat Cardiovascular Denies chest pain, Denies irregular heart rhythm, Denies lightheadedness, Denies palpitations, Reports dyspnea, Denies dyspnea on exertion and Denies orthopnea Respiratory Reports cough, Reports dyspnea, Denies dyspnea on exertion and Reports wheezing Gastrointestinal Gastrointestinal: Denies abdominal pain, Denies change in bowel habits, Denies diarrhea, Denies nausea and Denies vomiting Genitourinary Denies hematuria, Denies flank pain, Denies urinary incontinence and Denies urinary urgency Musculoskeletal Denies neck pain Integumentary/Breasts Denies pruritus, Denies erythema, Denies rash and Denies wounds Neurologic Denies confusion, Denies loss of vision and Denies weakness Psychiatric Denies anxiety, Denies confusion, Denies depression, Denies homicidal ideation and Denies suicidal ideation Endocrine Denies palpitations Hematologic/Lymphatic Denies easy bruising Allergic/Immunologic Reports wheezing [facility] Medical History Asthma (Chronic) Sternal fracture (Chronic) Family History Other Family history non-contributory Social History Smoking Status: Never smoker Family History Other Family history non-contributory Social History Smoking Status: Never smoker Exam Narrative Exam Narrative: GEN: AOx3 and in mild distress EYES: Pupils are equal, round, and reactive to light and accommodation. Extraoccular muscles are intact bilaterally. There is no subconjunctival hemorrhage or exudate. CHEST: Patient has expiratory wheeze with inspiration and isolation bilaterally, no crackles or rales, good respiratory effort. Heart rate is regular rhythm, there are no murmurs, clicks, rubs, or gallops. There is no chest wall tenderness. ABD: Abdomen is soft and nontender. There is no guarding or rebound. Bowel sounds are normal in all 4 quadrants. There is no mass or organomegaly. EXT: Full painless ROM of all extremities with no loss of sensation or strength. SKIN: Warm, pink, and dry. No erythema or rash Initial Vital Signs Initial Vital Signs: Vital Signs Temperature 98.2 F 05/18/19 21:51 Pulse Rate 84 05/18/19 21:51 Respiratory Rate 20 05/18/19 21:51 Blood Pressure 127/102 H 05/18/19 21:51 Pulse Oximetry 10 L 05/18/19 21:51 Course Orders Ordered: Discontinued Medications Albuterol (Ventolin Hfa Prepack) 1 box MISC SEEINSTR ONE Stop: 05/18/19 21:51 Last Admin: 05/18/19 22:08 Dose: 1 box Albuterol/Ipratropium (Duoneb) 3 ml INH NOW ONE Stop: 05/18/19 21:51 Last Admin: 05/18/19 21:58 Dose: 3 ml Discharge Plan Departure Patient Disposition: Home Clinical Impression: Asthma exacerbation Qualifiers: Asthma severity: moderate Asthma persistence: unspecified Qualified Code(s): J45.901 - Unspecified asthma with (acute) exacerbation Discharge Date/Time: 05/18/19 22:15 Interventions: ED Discharge Assessment Last Done: 05/18/19 22:28 Instructions: Asthma -- Adult Activity Restrictions/Additional Instructions: *You have been diagnosed with [asthma exacerbation] *What to do: *Take medications as directed: prescription sent to [facility] in [place] at your request *Follow up with your primary care provider in 2-3 days, call for an appointment. Let them know you were seen in the Emergency Department and that we ask that you be seen in follow up *Return to ER if you should have any new, worsening or concerning symptoms Prescriptions: New albuterol sulfate 2.5 mg /3 mL (0.083 %) solution for nebulization 2.5 mg INHALATION Q4-6H Qty: 180 RF: 0 No Action albuterol sulfate [Ventolin HFA] 90 mcg/actuation HFA aerosol inhaler 2 puff INHALATION Q4-6H PRN (Reason: shortness of breath or wheezing) Qty: 6.7 RF: 0 albuterol sulfate 90 mcg/actuation aerosol powdr breath activated 2 inhalation INHALATION Q4H Qty: 1 RF: 0 albuterol sulfate [Ventolin HFA] 90 mcg/actuation HFA aerosol inhaler 2 puff INHALATION Q4-6H PRN (Reason: shortness of breath or wheezing) Qty: 18 RF: 0 albuterol sulfate 90 mcg/actuation HFA aerosol inhaler See Rx Instructions .ROUTE .COMPLEX Qty: 18 RF: 0 Referrals: Edward Daugherty MD [Primary Care Provider] -
[2019-05-18 21:58] VITALS: PULSE 78; RESP 14; O2SAT 99
[2019-05-18] MEDS: ALBUTEROL/IPRATROPIUM 3 ML AMPUL INH (21:58)
--- NOTE | 2019-05-18 22:00 | PC.NURSE ---
PT states shortness of breath, history of asthma with wheezing and cough worsening over the day. States he ran out of his inhaler. Denies fever, chills or productive cough.
[2019-05-18] MEDS: ALBUTEROL HFA PREPACK 1 BOX MISC (22:08)
[2019-05-18 22:28] VITALS: BP 109/74; PULSE 83; RESP 16; O2SAT 100
== END 2019-05-18 22:15 | disposition home or self-care (01) ==
PROVIDERS: Emergency Provider Emergency Medicine; Family Provider Family Medicine; PCP Family Medicine
DX: J45.901 Unspecified asthma with (acute) exacerbation (principal)
CPT/HCPCS: 94150; 94640; 99282; 99283

== ENCOUNTER 2019-06-19 10:02 | Emergency (ER) | payer OTHER, MEDICAID, SELFPAY ==
[2019-06-19 10:06] VITALS: BP 110/95; PULSE 104; RESP 22; TEMP 36.4; O2SAT 97
[2019-06-19] MEDS: ALBUTEROL/IPRATROPIUM 3 ML AMPUL INH (10:10)
[2019-06-19 10:11] VITALS: PULSE 84; RESP 18; O2SAT 99
--- NOTE | 2019-06-19 10:43 | ED_ITS ---
HPI - Asthma General Chief Complaint: Asthma Stated Complaint: Asthma attack Time Seen by Provider: 06/19/19 10:28 Source: patient and old records reviewed Mode of arrival: ambulatory Limitations: no limitations History of Present Illness HPI Narrative: This is a 28-year-old male comes emergency depart with complaint of asthma exacerbation. Patient states that he is staying with his mom this week and she has cats which he is allergic to and it seemed to cause his asthma. Patient states that he started feeling more wheezy yesterday, it was getting worse over the last 12 hours and this morning felt a little lightheaded and very tightness chest. He denies any syncope. No chest pain. He received a DuoNeb in the department and states he feels like he is getting back to his normal. He has an albuterol inhaler but left at his apartment in [place] while he is here in town for the week. He does have his pacer with him. He has been on steroids before, he denies any hospitalizations or admissions but states he has been in the ER multiple times for his asthma. He denies any other medical issues. Denies any other allergies to medications. States he supposed to get surgery on his sternum because it keeps rebreaking in his sleep and hand for an old fracture that did not heal properly in the future but states he does not know exactly what they are going to do. Related Data Previous Rx's Medication Instructions Recorded albuterol sulfate See Rx Instructions .ROUTE 06/17/18 .COMPLEX #18 gram albuterol sulfate [Ventolin HFA] 2 puff INHALATION Q4-6H PRN #6.7 07/15/18 gram albuterol sulfate 2 inhalation INHALATION Q4H #1 each 11/23/18 albuterol sulfate [Ventolin HFA] 2 puff INHALATION Q4-6H PRN #18 03/16/19 gram albuterol sulfate 2.5 mg INHALATION Q4-6H #180 ml 05/18/19 albuterol sulfate 1 puff INHALATION Q4-6H PRN #8 gram 06/19/19 prednisone 50 mg PO DAILY #3 tab 06/19/19 Allergies Allergy/AdvReac Type Severity Reaction Status Date / Time cat dander Allergy Intermediate Verified 06/19/19 10:06 Review of Systems Review of Systems ROS Unobtainable: All systems reviewed & are unremarkable except as noted in HPI and below Constitutional Denies chills, Denies fever(s), Denies lethargy and Denies weakness ENT Ears, Nose, Mouth, and Throat: Denies hoarseness, Denies lip swelling, Denies mouth pain, Denies throat swelling and Denies tongue swelling Cardiovascular Denies chest pain, Denies edema, Denies palpitations, Reports dyspnea, Reports dyspnea on exertion and Denies orthopnea Respiratory Denies change in phlegm color, Denies chest congestion, Reports cough, Denies excessive phlegm production, Denies pain on inspiration, Denies pain with cough, Reports dyspnea, Reports dyspnea on exertion, Denies stridor and Reports wheezing Gastrointestinal Gastrointestinal: Denies abdominal pain, Denies change in bowel habits, Denies diarrhea, Denies nausea and Denies vomiting Integumentary/Breasts Denies rash Neurologic Denies weakness Endocrine Denies palpitations Allergic/Immunologic Denies lip swelling, Denies throat swelling, Denies tongue swelling and Reports wheezing Exam Narrative Exam Narrative: GENERAL: Alert and oriented x three, well-nourished, well- appearing male in mild distress. HEENT: Head normocephalic, atraumatic, EOMI, pupils reactive, face symmetric, moist mucous membranes NECK: Supple, full range of motion CARDIOVASCULAR: Regular rate and rhythm without murmurs, rubs or gallops. RESPIRATORY: Breath sounds equal bilaterally, expiratory and inspiratory wheeze bilaterally, no rales or rhonchi. No tachypnea. Patient speaks in full sentences. ABDOMEN: Soft, nontender. Normoactive bowel sounds all 4 quadrants. No guarding or rebound, rigidity, no mass EXTREMITIES: Normal range of motion, no clubbing or edema. Neurovascularly intact. Normal gait. NEUROLOGICAL: Cranial nerves II through XII grossly intact. Moving all extremities SKIN: Warm, dry, no petechiae, no rashes or lesions. Initial Vital Signs Initial Vital Signs: Vital Signs Temperature 97.6 F 06/19/19 10:06 Pulse Rate 104 H 06/19/19 10:06 Respiratory Rate 22 06/19/19 10:06 Blood Pressure 110/95 H 06/19/19 10:06 Pulse Oximetry 97 06/19/19 10:06 [facility] Medical History Asthma (Chronic) Sternal fracture (Chronic) Family History Other Family history non-contributory Social History Smoking Status: Never smoker Family History Other Family history non-contributory Social History Smoking Status: Never smoker Course Orders Ordered: Discontinued Medications Albuterol/Ipratropium (Duoneb) 3 ml INH NOW ONE Stop: 06/19/19 10:05 Last Admin: 06/19/19 10:10 Dose: 3 ml Methylprednisolone (Solu-Medrol 125 Mg Vial) 80 mg IV NOW ONE Stop: 06/19/19 10:39 Last Admin: 06/19/19 10:50 Dose: 80 mg Vital Signs - 8 hr 06/19/19 11:10 06/19/19 11:12 Pulse Rate 65 65 Respiratory Rate 18 15 Blood Pressure 93/76 Blood Pressure [Left Arm] 93/76 Pulse Oximetry 99 99 MDM - Asthma MDM Narrative Medical decision making narrative: Patient's last visit was May 19, he received an albuterol inhaler. Does not appear that he has been on steroids recently. Because he is going to be around has mother's cat for the next week all I did put him on a course of steroids as he is going to be around the exacerbating factor. Also given a prescription for albuterol as he left his at home. On recheck after neb patient wheezing has resolved. Discharge Plan Departure Patient Disposition: Home Clinical Impression: Asthma exacerbation Discharge Date/Time: 06/19/19 11:10 Interventions: ED Discharge Assessment Last Done: 06/19/19 11:10 Instructions: DI for Asthma -- Adult Activity Restrictions/Additional Instructions: Avoid allergens or exacerbating factors that caused your asthma to flare. Take steroids until gone. Continue to use albuterol 1-2 puffs every 4 hours as needed for symptoms. Use this with a spacer. Return to the emergency department for new or worsening symptoms, increasing shortness of breath, new chest pain, lightheadedness or passing-out, persistent vomiting, new swelling in her extremities or other new or concerning symptoms. Prescriptions: New prednisone 50 mg tablet 50 mg PO DAILY Qty: 3 RF: 0 albuterol sulfate 90 mcg/actuation HFA aerosol inhaler 1 puff INHALATION Q4-6H PRN (Reason: shortness of breath or wheezing) Qty: 8 RF: 0 No Action albuterol sulfate [Ventolin HFA] 90 mcg/actuation HFA aerosol inhaler 2 puff INHALATION Q4-6H PRN (Reason: shortness of breath or wheezing) Qty: 6.7 RF: 0 albuterol sulfate 90 mcg/actuation aerosol powdr breath activated 2 inhalation INHALATION Q4H Qty: 1 RF: 0 albuterol sulfate [Ventolin HFA] 90 mcg/actuation HFA aerosol inhaler 2 puff INHALATION Q4-6H PRN (Reason: shortness of breath or wheezing) Qty: 18 RF: 0 albuterol sulfate 90 mcg/actuation HFA aerosol inhaler See Rx Instructions .ROUTE .COMPLEX Qty: 18 RF: 0 albuterol sulfate 2.5 mg /3 mL (0.083 %) solution for nebulization 2.5 mg INHALATION Q4-6H Qty: 180 RF: 0 Referrals: Edward Daugherty MD [Primary Care Provider] -
[2019-06-19] MEDS: methylPREDNISolone 125 MG/2 ML VIAL 80 MG IV (10:50)
[2019-06-19 11:10] VITALS: BP 93/76; PULSE 65; RESP 18; O2SAT 99
[2019-06-19 11:12] VITALS: BP 93/76; PULSE 65; RESP 15; O2SAT 99
== END 2019-06-19 11:10 | disposition home or self-care (01) ==
PROVIDERS: Emergency Provider Emergency Medicine; PCP Family Medicine
DX: J45.901 Unspecified asthma with (acute) exacerbation (principal)
CPT/HCPCS: 36591; 94150; 94640; 96374; 99282; 99284; J2930

== ENCOUNTER 2019-07-29 05:35 | Emergency (ER) | payer OTHER, MEDICAID, SELFPAY ==
--- NOTE | 2019-07-29 05:40 | ED.ASTHMA ---
HPI - Asthma General Chief Complaint: Shortness of Breath/Dyspnea Stated Complaint: asthma attack Time Seen by Provider: 07/29/19 05:35 Source: patient Mode of arrival: ambulatory Limitations: no limitations History of Present Illness HPI Narrative: 29-year-old male with a history of asthma here for what he states an asthma attack. He states that it started just a couple hours ago. He is staying with his mother and is allergic to cats and she has a cat. He does have an albuterol inhaler at home however he has run out of the medications. Has never been hospitalized or intubated before from his asthma. Related Data Previous Rx's Medication Instructions Recorded albuterol sulfate See Rx Instructions .ROUTE 06/17/18 .COMPLEX #18 gram albuterol sulfate [Ventolin HFA] 2 puff INHALATION Q4-6H PRN #6.7 07/15/18 gram albuterol sulfate 2 inhalation INHALATION Q4H #1 each 11/23/18 albuterol sulfate [Ventolin HFA] 2 puff INHALATION Q4-6H PRN #18 03/16/19 gram albuterol sulfate 2.5 mg INHALATION Q4-6H #180 ml 05/18/19 albuterol sulfate 1 puff INHALATION Q4-6H PRN #8 gram 06/19/19 prednisone 50 mg PO DAILY #3 tab 06/19/19 albuterol sulfate 2 puff INHALATION Q4-6H PRN #18 07/29/19 gram Allergies Allergy/AdvReac Type Severity Reaction Status Date / Time cat dander Allergy Intermediate Verified 06/19/19 10:06 Review of Systems Constitutional Constitutional: Denies fever(s) Cardiovascular Cardiovascular: Denies chest pain and Reports dyspnea Respiratory Respiratory: Reports dyspnea Gastrointestinal Gastrointestinal: Denies abdominal pain Integumentary/Breasts Skin/Breast: Denies rash Exam Initial Vital Signs Initial Vital Signs: Vital Signs Pulse Rate 101 H 07/29/19 05:48 Respiratory Rate 18 07/29/19 05:48 Pulse Oximetry 96 07/29/19 05:48 Const General: cooperative and comfortable Orientation: alert and awake HENMT Head: normal to inspection and normocephalic Resp Effort & Inspection: cough, labored and tachypneic Auscultation: wheezes Cardio Rate: regular rate Rhythm: regular rhythm Skin Lesions: no lesions Rashes: no rashes Neuro General: alert and awake Extrem General: normal to inspection and capillary refill normal PFSH Medical History Asthma (Chronic) Sternal fracture (Chronic) Social History Smoking Status: Never smoker Course Orders Ordered: Discontinued Medications Albuterol/Ipratropium (Duoneb) 3 ml INH NOW ONE Stop: 07/29/19 05:40 Last Admin: 07/29/19 05:47 Dose: 3 ml Documented by: EAMON Dexamethasone (Decadron) 10 mg PO NOW ONE Stop: 07/29/19 05:40 Last Admin: 07/29/19 05:56 Dose: 10 mg Documented by: HILDA Vital Signs Vital signs: Vital Signs - 8 hr 07/29/19 05:48 07/29/19 05:52 Temperature 98.0 F Pulse Rate 101 H 92 H Respiratory Rate 18 20 Blood Pressure 118/70 Pulse Oximetry 96 95 MDM - Asthma MDM Narrative Medical decision making narrative: Patient had audible wheezes upon arrival. Received 1 DuoNeb here in the emergency department which almost completely resolved his symptoms. He states he feels much better. He was also given a dose of Decadron here in the ER. Will send home with a new prescription for his albuterol inhaler. Low suspicion for pneumonia. Will hold on any x-rays. He was given return precautions and follow-up instructions. He expressed understanding and agreement with plan. Discharge Plan Departure Patient Disposition: Home Clinical Impression: Asthma exacerbation Qualifiers: Asthma severity: mild Asthma persistence: unspecified Qualified Code(s): J45.901 - Unspecified asthma with (acute) exacerbation Instructions: DI for Asthma -- Adult Activity Restrictions/Additional Instructions: Use the albuterol inhaler as directed. I do recommend you contact your primary provider for a follow-up. Return to the emergency department for any new or worsening symptoms Prescriptions: New albuterol sulfate 90 mcg/actuation HFA aerosol inhaler 2 puff INHALATION Q4-6H PRN (Reason: shortness of breath or wheezing) Qty: 18 RF: 0 No Action albuterol sulfate [Ventolin HFA] 90 mcg/actuation HFA aerosol inhaler 2 puff INHALATION Q4-6H PRN (Reason: shortness of breath or wheezing) Qty: 6.7 RF: 0 albuterol sulfate 90 mcg/actuation aerosol powdr breath activated 2 inhalation INHALATION Q4H Qty: 1 RF: 0 albuterol sulfate [Ventolin HFA] 90 mcg/actuation HFA aerosol inhaler 2 puff INHALATION Q4-6H PRN (Reason: shortness of breath or wheezing) Qty: 18 RF: 0 albuterol sulfate 90 mcg/actuation HFA aerosol inhaler See Rx Instructions .ROUTE .COMPLEX Qty: 18 RF: 0 albuterol sulfate 2.5 mg /3 mL (0.083 %) solution for nebulization 2.5 mg INHALATION Q4-6H Qty: 180 RF: 0 prednisone 50 mg tablet 50 mg PO DAILY Qty: 3 RF: 0 albuterol sulfate 90 mcg/actuation HFA aerosol inhaler 1 puff INHALATION Q4-6H PRN (Reason: shortness of breath or wheezing) Qty: 8 RF: 0 Referrals: Edward Daugherty MD [Primary Care Provider] -
[2019-07-29] MEDS: ALBUTEROL/IPRATROPIUM 3 ML AMPUL INH (05:47)
[2019-07-29 05:48] VITALS: PULSE 101; RESP 18; O2SAT 96
[2019-07-29 05:52] VITALS: BP 118/70; PULSE 92; RESP 20; TEMP 36.7; O2SAT 95; BMI 19.2
[2019-07-29] MEDS: DEXAMETHASONE 10 MG/ML VIAL PO (05:56)
[2019-07-29 06:34] VITALS: BP 114/72; PULSE 105; RESP 20; O2SAT 98
== END 2019-07-29 06:35 | disposition home or self-care (01) ==
PROVIDERS: Emergency Provider Emergency Medicine; PCP Family Medicine
DX: J45.901 Unspecified asthma with (acute) exacerbation (principal)
CPT/HCPCS: 94640; 99282; 99283; J1100

== ENCOUNTER 2019-09-13 04:08 | Emergency (ER) | payer OTHER, MEDICAID, SELFPAY ==
[2019-09-13 04:15] VITALS: BP 111/79; PULSE 103; RESP 20; TEMP 37.2; O2SAT 97
--- NOTE | 2019-09-13 04:15 | ED_ITS ---
HPI - SOB/Dyspnea General Chief Complaint: Shortness of Breath/Dyspnea Stated Complaint: states asthma attack Time Seen by Provider: 09/13/19 04:11 Source: patient Mode of arrival: Ambulatory Limitations: no limitations History of Present Illness HPI Narrative: Patient comes emergency department complaining of an asthma attack that started around 1900 tonight. He states it is triggered by the cats at the House of his mother, whom he is visiting. He states he is allergic, and he always has an asthma attack 20 goes to visit her. Normally, he takes an inhaler, but states that his inhaler was almost empty and the puffs he took did not do any good. Patient states he does have a nebulizer machine at home but it is not with him. Patient denies any recent illness. No other complaints at this time. Related Data Previous Rx's Medication Instructions Recorded albuterol sulfate See Rx Instructions .ROUTE 06/17/18 .COMPLEX #18 gram albuterol sulfate [Ventolin HFA] 2 puff INHALATION Q4-6H PRN #6.7 07/15/18 gram albuterol sulfate 2 inhalation INHALATION Q4H #1 each 11/23/18 albuterol sulfate [Ventolin HFA] 2 puff INHALATION Q4-6H PRN #18 03/16/19 gram albuterol sulfate 2.5 mg INHALATION Q4-6H #180 ml 05/18/19 albuterol sulfate 1 puff INHALATION Q4-6H PRN #8 gram 06/19/19 prednisone 50 mg PO DAILY #3 tab 06/19/19 albuterol sulfate 2 puff INHALATION Q4-6H PRN #18 07/29/19 gram prednisone 60 mg PO DAILY #15 tab 09/13/19 Allergies Allergy/AdvReac Type Severity Reaction Status Date / Time cat dander Allergy Intermediate Verified 06/19/19 10:06 Review of Systems Constitutional Constitutional: Denies chills, Denies fatigue, Denies fever(s), Denies frequent falls, Denies lethargy and Denies weakness Eyes Eyes: Denies change in vision, Denies eye discharge, Denies irritation and Denies loss of vision ENT Ears, Nose, Mouth, and Throat: Denies change in voice, Denies dizziness, Denies neck pain, Denies sore throat and Denies throat swelling Cardiovascular Cardiovascular: Denies chest pain, Denies irregular heart rhythm, Denies lightheadedness, Denies palpitations, Reports dyspnea and Denies orthopnea Respiratory Respiratory: Denies cough, Reports dyspnea and Reports wheezing Gastrointestinal Gastrointestinal: Denies abdominal pain, Denies change in bowel habits, Denies diarrhea, Denies nausea and Denies vomiting Genitourinary Genitourinary: Denies hematuria, Denies flank pain, Denies urinary incontinence and Denies urinary urgency Musculoskeletal Musculoskeletal: Denies back pain, Denies muscle weakness, Denies neck pain, Denies numbness and Denies tingling Integumentary/Breasts Skin/Breast: Denies pruritus, Denies erythema, Denies rash and Denies wounds Neurologic Neurologic: Denies behavioral changes, Denies confusion, Denies dizziness, Denies frequent falls, Denies loss of vision, Denies numbness, Denies tingling and Denies weakness Psychiatric Psychiatric: Denies anxiety, Denies behavioral changes, Denies confusion, Denies depression, Denies homicidal ideation and Denies suicidal ideation Endocrine Endocrine: Denies fatigue, Denies flushing and Denies palpitations Hematologic/Lymphatic Hematologic/Lymphatic: Denies easy bruising Allergic/Immunologic Allergic/Immunologic: Denies urticaria, Denies throat swelling and Reports wheezing Patient History Medical History Asthma (Chronic) Sternal fracture (Chronic) Family History Other Family history non-contributory Social History Smoking Status: Never smoker alcohol intake frequency: holidays/special occasions only Substance Use Type: marijuana Exam Initial Vital Signs Initial Vital Signs: Vital Signs Temperature 99.0 F 09/13/19 04:15 Pulse Rate 103 H 09/13/19 04:15 Respiratory Rate 20 09/13/19 04:15 Blood Pressure 111/79 09/13/19 04:15 Pulse Oximetry 97 09/13/19 04:15 Const General: cooperative, well developed and acute distress (Mild, respiratory distress) Nutritional Appearance: well nourished Orientation: alert, awake, oriented x3 and not confused HENMT Head: normocephalic and atraumatic Ears: external ears normal and TM's normal bilaterally Nose: external nose normal and No nasal discharge Face and sinus: sinuses nontender, face symmetric, no sinus tenderness and No dry mucous membranes Mouth: oral mucosae normal and moist mucous membranes Teeth and gingiva: dentition normal Throat: tonsils normal and uvula midline Eyes General: appearance normal, both eyes and all related structures Eyelids: eyelids normal Conjunctivae: conjunctivae normal Sclera: sclerae normal Pupils: PERRL EOM: EOM intact bilaterally Neck Neck: normal visual inspection, trachea midline, No lymphadenopathy, No midline deformity and No JVD Lymphatic: No lymphedema Chest Chest: normal inspection of the chest Resp Effort & Inspection: normal respiratory effort, able to speak in complete sentences, respiratory distress (Mild), uses accessory muscles and prolonged expiratory phase Auscultation: diminished lung sounds, no rales, no rhonchi and wheezes (Moderate, diffuse) expiratory wheezes Cardio Rate: regular rate Rhythm: regular rhythm Heart Sounds: no click, no gallops, no murmurs and no rubs Pulses: normal peripheral pulses GI Inspection: non-distended Palpation: soft, no hepatosplenomegaly, No guarding, No pulsatile mass and No tender Auscultation: normal bowel sounds Back/Spine/Pelvis Back: No CVA tenderness Cervical Spine: cervical ROM normal and No pain with cervical ROM Thoracic/Lumbar Spine: thoracic and lumbar spine normal to inspection Skin General: no rashes or lesions noted, No jaundice and No petechiae Neuro General: alert, awake, oriented x3, gait normal and no focal motor deficits Speech: speech normal Motor: muscle tone normal throughout Extrem General: full ROM, no clubbing, cyanosis or edema, no pedal edema and no calf tenderness Psych Appearance: well kempt Mental Status: mental status grossly normal Attitude: cooperative Thought Content: normal and suicidality Judgment: judgment good Course Course Course Narrative: Patient was evaluated immediately upon arrival in the emergenc y department by myself, and was started on a DuoNeb and given prednisone. On re-evaluation, the patient was found to be feeling much better, and his lungs were almost completely clear, with the exception of a very faint wheeze on the left side. The patient stated he felt ready to go home. He has been given an inhaler from the emergency department, as well as a prescription for a short course of prednisone. We have discussed home management of the symptoms, as well as the usual indications for return. Orders Ordered: Discontinued Medications Albuterol (Ventolin Hfa Prepack) 1 box MISC SEEINSTR ONE Stop: 09/13/19 04:44 Last Admin: 09/13/19 04:47 Dose: 1 box Documented by: Albuterol/Ipratropium (Duoneb) 3 ml INH NOW ONE Stop: 09/13/19 04:15 Last Admin: 09/13/19 04:16 Dose: 3 ml Documented by: Prednisone (Deltasone) 60 mg PO NOW ONE Stop: 09/13/19 04:15 Last Admin: 09/13/19 04:22 Dose: 60 mg Documented by: Prednisone (Deltasone) 20 mg PO NOW ONE Stop: 09/13/19 04:28 Last Admin: 09/13/19 04:33 Dose: Not Given Documented by: Vital Signs Vital signs: Vital Signs - 8 hr 09/13/19 04:15 09/13/19 04:17 09/13/19 04:44 Temperature 99.0 F Pulse Rate 103 H 83 Respiratory Rate 20 20 Blood Pressure 111/79 Blood Pressure [Right Arm] 114/74 Pulse Oximetry 97 98 100 MDM - SOB/Dyspnea Medical Records Attestation: I reviewed the patient's medical records. Discharge Plan Departure Patient Disposition: Home Clinical Impression: Asthma exacerbation Qualifiers: Asthma severity: mild Asthma persistence: intermittent Qualified Code(s): J45.21 - Mild intermittent asthma with (acute) exacerbation Discharge Date/Time: 09/13/19 04:51 Instructions: DI for Asthma -- Adult Prescriptions: New prednisone 20 mg tablet 60 mg PO DAILY Qty: 15 RF: 0 No Action albuterol sulfate [Ventolin HFA] 90 mcg/actuation HFA aerosol inhaler 2 puff INHALATION Q4-6H PRN (Reason: shortness of breath or wheezing) Qty: 6.7 RF: 0 albuterol sulfate 90 mcg/actuation aerosol powdr breath activated 2 inhalation INHALATION Q4H Qty: 1 RF: 0 albuterol sulfate [Ventolin HFA] 90 mcg/actuation HFA aerosol inhaler 2 puff INHALATION Q4-6H PRN (Reason: shortness of breath or wheezing) Qty: 18 RF: 0 albuterol sulfate 90 mcg/actuation HFA aerosol inhaler See Rx Instructions .ROUTE .COMPLEX Qty: 18 RF: 0 albuterol sulfate 2.5 mg /3 mL (0.083 %) solution for nebulization 2.5 mg INHALATION Q4-6H Qty: 180 RF: 0 prednisone 50 mg tablet 50 mg PO DAILY Qty: 3 RF: 0 albuterol sulfate 90 mcg/actuation HFA aerosol inhaler 1 puff INHALATION Q4-6H PRN (Reason: shortness of breath or wheezing) Qty: 8 RF: 0 albuterol sulfate 90 mcg/actuation HFA aerosol inhaler 2 puff INHALATION Q4-6H PRN (Reason: shortness of breath or wheezing) Qty: 18 RF: 0 Referrals: Edward Daugherty MD [Primary Care Provider] -
[2019-09-13] MEDS: ALBUTEROL/IPRATROPIUM 3 ML AMPUL INH (04:16)
[2019-09-13 04:17] VITALS: O2SAT 98
[2019-09-13] MEDS: predniSONE 20 MG TABLET 60 MG PO (04:22)
--- NOTE | 2019-09-13 04:34 | PC.NURSE ---
when opening the prednisone tablets I dropped one (20mg tablet) on to the floor. I was unable to pull a replacement tablet from the pyxis so another 20mg tablet was ordered so that I could pull it giving the patient a total dose of 60mg of prednisone PO. provider aware.
[2019-09-13 04:44] VITALS: BP 114/74; PULSE 83; RESP 20; O2SAT 100
[2019-09-13] MEDS: ALBUTEROL HFA PREPACK 1 BOX MISC (04:47)
== END 2019-09-13 04:51 | disposition home or self-care (01) ==
PROVIDERS: Emergency Provider Emergency Medicine; PCP Family Medicine
DX: J45.41 Moderate persistent asthma with (acute) exacerbation (principal)
CPT/HCPCS: 94640; 99282; 99283

== ENCOUNTER 2019-10-09 21:58 | Emergency (ER) | payer OTHER, MEDICAID, SELFPAY ==
[2019-10-09] MEDS: ALBUTEROL/IPRATROPIUM 3 ML AMPUL INH (22:07)
[2019-10-09 22:10] VITALS: BP 123/74; PULSE 96; RESP 22; TEMP 36.3; O2SAT 95
--- NOTE | 2019-10-09 22:14 | ED.ASTHMA ---
HPI - Asthma General Chief Complaint: Shortness of Breath/Dyspnea Stated Complaint: asthma attack Time Seen by Provider: 10/09/19 22:02 Source: patient Mode of arrival: Ambulatory Limitations: no limitations History of Present Illness HPI Narrative: 29-year-old male with a history of asthma. Has never been hospitalized or intubated. Does have home albuterol. States that he has been in a house that has a cat which he states he is allergic to. He states he tried to uses albuterol inhaler however he realized that it was out of medication. He does have a spacer at home. States that he came to the emergency department before it ?got too bad ? Related Data Previous Rx's Medication Instructions Recorded albuterol sulfate See Rx Instructions .ROUTE 06/17/18 .COMPLEX #18 gram albuterol sulfate [Ventolin HFA] 2 puff INHALATION Q4-6H PRN #6.7 07/15/18 gram albuterol sulfate 2 inhalation INHALATION Q4H #1 each 11/23/18 albuterol sulfate [Ventolin HFA] 2 puff INHALATION Q4-6H PRN #18 03/16/19 gram albuterol sulfate 2.5 mg INHALATION Q4-6H #180 ml 05/18/19 albuterol sulfate 1 puff INHALATION Q4-6H PRN #8 gram 06/19/19 prednisone 50 mg PO DAILY #3 tab 06/19/19 albuterol sulfate 2 puff INHALATION Q4-6H PRN #18 07/29/19 gram prednisone 60 mg PO DAILY #15 tab 09/13/19 Allergies Allergy/AdvReac Type Severity Reaction Status Date / Time cat dander Allergy Intermediate Verified 06/19/19 10:06 Review of Systems Constitutional Constitutional: Denies fever(s) Cardiovascular Cardiovascular: Reports dyspnea Respiratory Respiratory: Reports cough, Reports dyspnea and Reports wheezing Gastrointestinal Gastrointestinal: Denies abdominal pain Integumentary/Breasts Skin/Breast: Denies lesions and Denies rash Neurologic Neurologic: Denies behavioral changes Psychiatric Psychiatric: Denies behavioral changes Hematologic/Lymphatic Hematologic/Lymphatic: Denies easy bleeding and Denies easy bruising Allergic/Immunologic Allergic/Immunologic: Reports wheezing Patient History Medical History Asthma (Chronic) Sternal fracture (Chronic) Social History Smoking Status: Never smoker alcohol intake frequency: holidays/special occasions only Substance Use Type: marijuana Exam Initial Vital Signs Initial Vital Signs: Vital Signs Temperature 97.4 F L 10/09/19 22:10 Pulse Rate 96 H 10/09/19 22:10 Respiratory Rate 22 10/09/19 22:10 Blood Pressure 123/74 10/09/19 22:10 Pulse Oximetry 95 10/09/19 22:10 Const General: cooperative and comfortable Orientation: alert, awake and oriented x3 Resp Effort & Inspection: tachypneic Auscultation: clear to auscultation bilaterally Other: My evaluation was after his 1st albuterol treatment Cardio Rate: regular rate Rhythm: regular rhythm Skin Lesions: no lesions Rashes: no rashes Neuro General: alert and awake Extrem General: normal to inspection and capillary refill normal Course Orders Ordered: Discontinued Medications Albuterol (Ventolin Hfa Prepack) 1 box MISC SEEINSTR ONE Stop: 10/09/19 22:16 Last Admin: 10/09/19 22:32 Dose: 1 box Documented by: LREED Albuterol/Ipratropium (Duoneb) 3 ml INH NOW ONE Stop: 10/09/19 22:03 Last Admin: 10/09/19 22:07 Dose: 3 ml Documented by: LREED Albuterol/Ipratropium (Duoneb) 3 ml INH NOW ONE Stop: 10/09/19 22:13 Last Admin: 10/09/19 22:34 Dose: Not Given Documented by: LREED Vital Signs Vital signs: Vital Signs - 8 hr 10/09/19 22:10 10/09/19 22:26 Temperature 97.4 F L Pulse Rate 96 H 95 H Respiratory Rate 22 18 Blood Pressure 123/74 Blood Pressure [Right Arm] 123/74 Pulse Oximetry 95 94 MDM - Asthma MDM Narrative Medical decision making narrative: Patient received 1 nebulizer treatment prior to my evaluation and upon my evaluation he was clear lungs bilateral. He does have a spacer at home. He was given a prepack of albuterol. He was observed in the emergency department for period of time after his nebulizer treatment without any return of his symptoms. Will hold on any x-rays for now. Patient was given return precautions and follow-up instructions. He expressed understanding and agreement with plan Discharge Plan Departure Patient Disposition: Home Clinical Impression: Asthma exacerbation Qualifiers: Asthma severity: unspecified severity Asthma persistence: unspecified Qualified Code(s): J45.901 - Unspecified asthma with (acute) exacerbation Discharge Date/Time: 10/09/19 22:35 Instructions: DI for Asthma -- Adult Activity Restrictions/Additional Instructions: Continue all of her medications as directed. Contact your primary provider for follow-up. Return to the emergency department for any new or worsening symptoms Prescriptions: No Action albuterol sulfate [Ventolin HFA] 90 mcg/actuation HFA aerosol inhaler 2 puff INHALATION Q4-6H PRN (Reason: shortness of breath or wheezing) Qty: 6.7 RF: 0 albuterol sulfate 90 mcg/actuation aerosol powdr breath activated 2 inhalation INHALATION Q4H Qty: 1 RF: 0 albuterol sulfate [Ventolin HFA] 90 mcg/actuation HFA aerosol inhaler 2 puff INHALATION Q4-6H PRN (Reason: shortness of breath or wheezing) Qty: 18 RF: 0 albuterol sulfate 90 mcg/actuation HFA aerosol inhaler See Rx Instructions .ROUTE .COMPLEX Qty: 18 RF: 0 albuterol sulfate 2.5 mg /3 mL (0.083 %) solution for nebulization 2.5 mg INHALATION Q4-6H Qty: 180 RF: 0 prednisone 50 mg tablet 50 mg PO DAILY Qty: 3 RF: 0 albuterol sulfate 90 mcg/actuation HFA aerosol inhaler 1 puff INHALATION Q4-6H PRN (Reason: shortness of breath or wheezing) Qty: 8 RF: 0 albuterol sulfate 90 mcg/actuation HFA aerosol inhaler 2 puff INHALATION Q4-6H PRN (Reason: shortness of breath or wheezing) Qty: 18 RF: 0 prednisone 20 mg tablet 60 mg PO DAILY Qty: 15 RF: 0 Referrals: Edward Daugherty MD [Primary Care Provider] -
[2019-10-09 22:26] VITALS: BP 123/74; PULSE 95; RESP 18; O2SAT 94
[2019-10-09] MEDS: ALBUTEROL HFA PREPACK 1 BOX MISC (22:32)
== END 2019-10-09 22:35 | disposition home or self-care (01) ==
PROVIDERS: Emergency Provider Emergency Medicine; PCP Family Medicine
DX: J45.901 Unspecified asthma with (acute) exacerbation (principal)
CPT/HCPCS: 94640; 99283

== ENCOUNTER 2019-10-28 11:45 | Emergency (ER) | payer OTHER, MEDICAID, SELFPAY ==
[2019-10-28 12:12] VITALS: BP 131/95; PULSE 93; RESP 22; TEMP 36.4; O2SAT 95; BMI 20.7
--- NOTE | 2019-10-28 12:21 | DI.RAD.S_ITS ---
PROCEDURE: XR CHEST 1V INDICATIONS: syncopal episode TECHNIQUE: One view of the chest was acquired. COMPARISON: [facility], CR, XR CHEST 1V, 12/26/2018, 18:33. FINDINGS: Surgical changes and devices: None. Lungs and pleura: Lungs are clear. No pleural effusions or pneumothorax. Mediastinum: Mediastinal contours appear normal. Heart size is normal. Bones and chest wall: No suspicious bony lesions. Overlying soft tissues appear unremarkable. IMPRESSION: No acute cardiopulmonary disease process. Dictated by: Kiah Bobby MD, PhD on 10/28/2019 at 12:51 Approved by: Kiah Bobby MD, PhD on 10/28/2019 at 12:51
--- NOTE | 2019-10-28 12:26 | ED_ITS ---
HPI - Syncope <SHAHRAM Mcelroy - Last Filed: 10/28/19 14:20> General Chief Complaint: Syncope Stated Complaint: Weakness,fell in the shower Time Seen by Provider: 10/28/19 12:01 Source: patient Mode of arrival: Ambulatory Limitations: no limitations History of Present Illness HPI narrative: This is a 29-year-old gentleman, former smoker, who presents to ED with a brief duration of syncopal episode after he had 1 day duration of illness with nausea and vomiting. Patient reports he had about 10-15 times of emesis yesterday with low-grade of fever and chills. Patient reports on his 3rd and 4th forceful emesis with blood. Last vomit was at midnight last night. Patient denies diarrhea, chest pain, breathing difficulty. Patient reports mild epigastric discomfort. Patient has syncopal episode in the shower this morning at 6:00 a.m. and he went back to bed to sleep and now presents to ED after his mom's urgently increase patient to get a evaluation. Patient reports posterior L headache but there is no swelling or hematoma and stating I don't think I hit my head. Patient reports feel dehydrated with lightheadedness and occasional blurred vision with changing in position. Patient had syncopal episodes in the past with locked knees. Patient states he has history of gastric ulcers about 10 years ago by EGD from excessive alcohol intake. Patient is not currently taking any medications at this time. Related Data Previous Rx's Medication Instructions Recorded albuterol sulfate See Rx Instructions .ROUTE 06/17/18 .COMPLEX #18 gram albuterol sulfate [Ventolin HFA] 2 puff INHALATION Q4-6H PRN #6.7 07/15/18 gram albuterol sulfate 2 inhalation INHALATION Q4H #1 each 11/23/18 albuterol sulfate [Ventolin HFA] 2 puff INHALATION Q4-6H PRN #18 03/16/19 gram albuterol sulfate 2.5 mg INHALATION Q4-6H #180 ml 05/18/19 albuterol sulfate 1 puff INHALATION Q4-6H PRN #8 gram 06/19/19 prednisone 50 mg PO DAILY #3 tab 06/19/19 albuterol sulfate 2 puff INHALATION Q4-6H PRN #18 07/29/19 gram prednisone 60 mg PO DAILY #15 tab 09/13/19 omeprazole 20 mg PO DAILY #14 cap 10/28/19 ondansetron 4 mg PO Q6-8H PRN #7 tab 10/28/19 Allergies Allergy/AdvReac Type Severity Reaction Status Date / Time cat dander Allergy Intermediate Verified 10/28/19 12:12 Review of Systems <SHAHRAM Mcelroy - Last Filed: 10/28/19 14:20> Review of Systems Narrative: General: See HPI HEENT: Reports posterior headache and dizziness with position change. Denies sinus pain, ear pain, sore throat, difficulty swallowing. Respiratory: Denies dyspnea, cough, wheezing, hemoptysis, sputum. Cardiovascular: Denies chest pain, palpitations, orthopnea, edema. Gastrointestinal: See HPI : Denies dysuria, frequency, incontinence, hematuria, urinary retention. Musculoskeletal: Denies weakness, joint pain or bony pain. Skin: Denies rash, skin lesions, or other. Neurologic: See HPI. Denies numbness, change in speech, confusion, seizures, incoordination. Psychiatric: No concerning psychosocial issues. 12-point review of systems is negative except for those stated above. Patient History <SHAHRAM Mcelroy - Last Filed: 10/28/19 14:20> Medical History (Updated 10/28/19 @ 14:08 by SHAHRAM Mcelroy) Asthma (Chronic) Gastric ulcer (Acute) Sternal fracture (Chronic) Family History Other Family history non-contributory Social History (Updated 10/28/19 @ 12:32 by SHAHRAM Mcelroy) Smoking Status: Never smoker substance use type: does not use Smoking Status: Never smoker alcohol intake frequency: holidays/special occasions only Substance Use Type: marijuana Exam <SHAHRAM Mcelroy - Last Filed: 10/28/19 14:20> Narrative Exam Narrative: GEN: Alert, oriented x 3, well appearing and nourished, and in no acute distress. Head: Normal cephalic, atraumatic. No scalp or temporal tenderness, palpable mass or rash. EYES: Pupils are equal, round, and reactive to light and accommodation. Extraocular muscles are intact bilaterally. There is no subconjunctival hemorrhage, exudate and sclera non-icteric. ENT: Bilateral auditory canals and tympanic membranes clear. Hearing grossly intact. Nose without bleeding, purulent discharge or deviation. Facial sinuses nontender to palpate. Mucous membrane moist, no mucosal lesion. Throat without erythema, tonsillar hypertrophy or exudate. Uvula in midline, airway patent. Neck: Trachea in midline. No JVD, non-tender without lymphadenopathy. No masses or thyroid megaly. Supple, non-tender and no meningeal signs. CARDIAC: Normal regular rate and rhythm without murmurs, gallops, or rubs. No chest wall tenderness. No peripheral edema, cyanosis or pallor. Capillary refill is less than 2 seconds. HR increased to 100's from 80's when sat up in bed. RESPIRATORY: Lungs are clear to auscultate bilaterally. No cough, wheezes, rales, or rhonchi. No stridor, respiratory distress, increase work of breathing, or accessary muscle used. ABD: Abdomen soft, mild tenderness in epigastric region and non-distended. No guarding or rebound tenderness to palpate. Bowel sounds are normal in all 4 quadrants. There is no palpable masses or organomegaly. EXT: Full painless ROM of all extremities with no loss of sensation, strength, effusion or edema. SKIN: Warm, dry, normal color for patient. No erythema, lesions or rash over visible areas. BACK: Nontender without deformity or crepitance. No flank tenderness. NEUROLOGICAL: Alert and oriented to place, time and person. Sensation and motor function intact bilaterally. No facial droops, dysphasia. PSYCHIATRIC: Good judgement and reason, without hallucinations, abnormal affect or abnormal behaviors during the examination. Patient is not suicidal. Initial Vital Signs Initial Vital Signs: Vital Signs Temperature 97.5 F L 10/28/19 12:12 Pulse Rate 93 H 10/28/19 12:12 Respiratory Rate 22 10/28/19 12:12 Blood Pressure 131/95 H 10/28/19 12:12 Pulse Oximetry 95 10/28/19 12:12 <Liz Joseph, DO - Last Filed: 10/28/19 19:05> Initial Vital Signs Initial Vital Signs: Vital Signs Temperature 97.5 F L 10/28/19 12:12 Pulse Rate 93 H 10/28/19 12:12 Respiratory Rate 22 10/28/19 12:12 Blood Pressure 131/95 H 10/28/19 12:12 Pulse Oximetry 95 10/28/19 12:12 Course <SHAHRAM Mcelroy - Last Filed: 10/28/19 14:20> Orders Ordered: ED Orders 10/28/19 12:05 Complete Blood Count AUTO DIFF Stat Comprehensive Metabolic Panel Stat Troponin & CK Cardiac Panel Stat 10/28/19 12:20 EKG-12 Lead Stat 10/28/19 12:21 XR chest 1V Stat Discontinued Medications Acetaminophen (Tylenol) 975 mg PO NOW ONE Stop: 10/28/19 12:21 Last Admin: 10/28/19 12:32 Dose: 975 mg Documented by: CARLOS Sodium Chloride (Normal Saline 0.9%) 1,000 mls @ 999 mls/hr IV CONT ANDREA Last Infusion: 10/28/19 14:20 Dose: 0 mls/hr Documented by: Admin: 10/28/19 12:30 Dose: 999 mls/hr Documented by: CARLOS Ondansetron HCl (Zofran) 4 mg IV NOW ONE Stop: 10/28/19 12:21 Last Admin: 10/28/19 12:32 Dose: 4 mg Documented by: CARLOS Pantoprazole Sodium (Protonix) 40 mg IV NOW ONE Stop: 10/28/19 12:21 Last Admin: 10/28/19 12:33 Dose: 40 mg Documented by: CARLOS Vital Signs Vital signs: Vital Signs - 8 hr 10/28/19 12:12 10/28/19 12:30 10/28/19 13:00 Temperature 97.5 F L Pulse Rate 93 H 75 66 Respiratory Rate 22 16 14 Blood Pressure 131/95 H Blood Pressure [Right Arm] 116/102 H 112/84 Pulse Oximetry 95 100 100 10/28/19 14:23 Temperature Pulse Rate 69 Respiratory Rate 18 Blood Pressure 103/67 Blood Pressure [Right Arm] Pulse Oximetry 99 <Liz Joseph DO - Last Filed: 10/28/19 19:05> Orders Ordered: ED Orders 10/28/19 12:05 Complete Blood Count AUTO DIFF Stat Comprehensive Metabolic Panel Stat Troponin & CK Cardiac Panel Stat 10/28/19 12:20 EKG-12 Lead Stat 10/28/19 12:21 XR chest 1V Stat Discontinued Medications Acetaminophen (Tylenol) 975 mg PO NOW ONE Stop: 10/28/19 12:21 Last Admin: 10/28/19 12:32 Dose: 975 mg Documented by: CARLOS Sodium Chloride (Normal Saline 0.9%) 1,000 mls @ 999 mls/hr IV CONT ANDREA Last Infusion: 10/28/19 14:20 Dose: 0 mls/hr Documented by: Admin: 10/28/19 12:30 Dose: 999 mls/hr Documented by: CARLOS Ondansetron HCl (Zofran) 4 mg IV NOW ONE Stop: 10/28/19 12:21 Last Admin: 10/28/19 12:32 Dose: 4 mg Documented by: CARLOS Pantoprazole Sodium (Protonix) 40 mg IV NOW ONE Stop: 10/28/19 12:21 Last Admin: 10/28/19 12:33 Dose: 40 mg Documented by: CARLOS Vital Signs Vital signs: Vital Signs - 8 hr 10/28/19 12:12 10/28/19 12:30 10/28/19 13:00 Temperature 97.5 F L Pulse Rate 93 H 75 66 Respiratory Rate 22 16 14 Blood Pressure 131/95 H Blood Pressure [Right Arm] 116/102 H 112/84 Pulse Oximetry 95 100 100 10/28/19 14:23 Temperature Pulse Rate 69 Respiratory Rate 18 Blood Pressure 103/67 Blood Pressure [Right Arm] Pulse Oximetry 99 MDM - Syncope <SHAHRAM Mcelroy - Last Filed: 10/28/19 14:20> Differential Diagnosis Differential diagnosis: Likely syncope due to orthostatic hypotension, dehydrati on and other (Gastroenteritis) Medical Records Attestation: I reviewed the patient's medical records. Lab Data Attestation: I reviewed the patient's lab results. Result diagrams: 10/28/19 12:05 10/28/19 12:05 Labs: Lab Results 10/28/19 10/28/19 Range/Units 12:05 12:05 WBC 7.8 (4.5-11.0) X10^3/uL RBC 5.09 (4.5-5.9) X10^6/uL Hgb 16.0 (13.5-17.5) g/dL Hct 44.7 (41-53) % MCV 87.8 (80-100) fL MCH 31.5 (26-34) PG MCHC 35.9 (30-36) % RDW 13.3 (11.6-14.8) % Plt Count 283 (150-400) X10^3/uL Neut % (Auto) 53.0 (50-75) % Lymph % (Auto) 30.8 (25-40) % [place] % (Auto) 9.7 (3-14) % Eos % (Auto) 5.7 H (2-4) % Baso % (Auto) 0.8 (0-2) % Neut # (Auto) 4100 (3562-5533) /uL Lymph # (Auto) 2400 (6720-4555) /uL [place] # (Auto) 800 (0-900) /uL Eos # (Auto) 400 (0-450) /uL Baso # (Auto) 100 (0-100) /uL Sodium 140 (137-145) mmol/L Potassium 4.6 (3.4-5.1) mmol/L Chloride 101 (98-107) mmol/L Carbon Dioxide 31 (22-32) mmol/L BUN 18 (9-20) mg/dL Creatinine 0.80 (0.66-1.25) mg/dL Estimated GFR > 60.0 (>60) mL/min BUN/Creatinine Ratio 22.5 H (6-22) Glucose 95 (70-100) mg/dL Calcium 9.7 (8.4-10.2) mg/dL Total Bilirubin 1.0 (0.2-1.3) mg/dL AST 55 (17-59) IU/L ALT 16 (<50) IU/L Alkaline Phosphatase 83 (38-126) U/L Total Creatine Kinase 69 (55-170) U/L CK-MB (CK-2) TNP CK-MB (CK-2) Rel Index TNP Troponin I < 0.012 (0.01-0.034) ng/mL Total Protein 7.9 (6.3-8.2) g/dL Albumin 4.7 (3.5-5.0) g/dL Globulin 3.2 (1.7-4.1) g/dL Albumin/Globulin Ratio 1.5 (1.0-2.8) Urine Dip Bedside Urine Glucose Negative Bedside Urine Bilirubin - Negative Bedside Urine Ketone - Negative Urine Specific [place] 1.015 Bedside Urine Occult Blood - Negative Bedside Urine pH 6.5 Bedside Urine Protein +/- 15 Bedside Urine Urobilinogen - Negative Bedside Urine Nitrite - Negative Bedside Urine Leukocytes - Negative Esterase Imaging Data Chest x-ray: Radiologist's impression: [place] [id number] [place] [id number] XRay Report Signed Patient: Fritz Ware [facility]#: [id number] : 1990Acct:[id number] Age/Sex: 29 MDate of Service: 10/28/19 Loc: ED Accession Number: [id number] Procedure: XR chest 1V Ordering Provider: Beau Bell PROCEDURE: XR CHEST 1V INDICATIONS: syncopal episode TECHNIQUE: One view of the chest was acquired. COMPARISON: [facility], , XR CHEST 1V, 12/26/2018, 18:33. FINDINGS: Surgical changes and devices: None. Lungs and pleura: Lungs are clear. No pleural effusions or pneumothorax. Mediastinum: Mediastinal contours appear normal. Heart size is normal. Bones and chest wall: No suspicious bony lesions. Overlying soft tissues appear unremarkable. IMPRESSION: No acute cardiopulmonary disease process. Dictated by: Kiah Bobby MD, PhD on 10/28/2019 at 12:51 Approved by: Kiah Bobby MD, PhD on 10/28/2019 at 12:51 ECG Data Attestation: I personally reviewed and interpreted this ECG as follows: Prior ECG tracings: not available for review Interpretation: Sinus rhythm rate at 70.. Normal [place] No ST elevation, non specific T wave abnormalty. Normal QT/QTc MDM Narrative Medical decision making narrative: This is a 29-year-old male who presents to ED with syncopal episode this morning after he had multiple episodes of nausea and vomiting for 24. Patient also reported having bloody emesis on the 3rd and 4th vomit which he no longer has it and last vomit was midnight last night. Patient reports feeling dehydration such as lightheadedness and blurred vision with changing in position. EKG was normal sinus rhythm. Chest x-ray was normal. Unremarkable lab tests today including normal H&H and cardiac enzymes. Patient reports epigastric tenderness to palpate. Patient was hydrated with IV fluid and Zofran for nausea. Pantoprazole 40 mg IV was administered for epigastric discomfort likely from excessive vomiting. Patient was able to tolerate sips of water without difficulty and normal urine specific gravity after the hydration. Patient reports much improved symptoms after the hydration and was able to ambulate to the bathroom without difficulty. Bloody emesis likely from forceful vomits and patient advised to follow-up with PCP if epigastric pain persists for EGD given patient has history of gastric ulcer in the past. Discharged to home with Zofran 0 DT and omeprazole and return precautions were discussed with patient. Patient verbalized understanding and agrees with the treatment plan. <Liz Joseph, DO - Last Filed: 10/28/19 19:05> Lab Data Labs: Lab Results 10/28/19 10/28/19 Range/Units 12:05 12:05 WBC 7.8 (4.5-11.0) X10^3/uL RBC 5.09 (4.5-5.9) X10^6/uL Hgb 16.0 (13.5-17.5) g/dL Hct 44.7 (41-53) % MCV 87.8 (80-100) fL MCH 31.5 (26-34) PG MCHC 35.9 (30-36) % RDW 13.3 (11.6-14.8) % Plt Count 283 (150-400) X10^3/uL Neut % (Auto) 53.0 (50-75) % Lymph % (Auto) 30.8 (25-40) % [place] % (Auto) 9.7 (3-14) % Eos % (Auto) 5.7 H (2-4) % Baso % (Auto) 0.8 (0-2) % Neut # (Auto) 4100 (7383-6874) /uL Lymph # (Auto) 2400 (1347-8879) /uL [place] # (Auto) 800 (0-900) /uL Eos # (Auto) 400 (0-450) /uL Baso # (Auto) 100 (0-100) /uL Sodium 140 (137-145) mmol/L Potassium 4.6 (3.4-5.1) mmol/L Chloride 101 (98-107) mmol/L Carbon Dioxide 31 (22-32) mmol/L BUN 18 (9-20) mg/dL Creatinine 0.80 (0.66-1.25) mg/dL Estimated GFR > 60.0 (>60) mL/min BUN/Creatinine Ratio 22.5 H (6-22) Glucose 95 (70-100) mg/dL Calcium 9.7 (8.4-10.2) mg/dL Total Bilirubin 1.0 (0.2-1.3) mg/dL AST 55 (17-59) IU/L ALT 16 (<50) IU/L Alkaline Phosphatase 83 (38-126) U/L Total Creatine Kinase 69 (55-170) U/L CK-MB (CK-2) TNP CK-MB (CK-2) Rel Index TNP Troponin I < 0.012 (0.01-0.034) ng/mL Total Protein 7.9 (6.3-8.2) g/dL Albumin 4.7 (3.5-5.0) g/dL Globulin 3.2 (1.7-4.1) g/dL Albumin/Globulin Ratio 1.5 (1.0-2.8) Urine Dip Bedside Urine Glucose Negative Bedside Urine Bilirubin - Negative Bedside Urine Ketone - Negative Urine Specific [place] 1.015 Bedside Urine Occult Blood - Negative Bedside Urine pH 6.5 Bedside Urine Protein +/- 15 Bedside Urine Urobilinogen - Negative Bedside Urine Nitrite - Negative Bedside Urine Leukocytes - Negative Esterase Discharge Plan Departure Patient Disposition: Home Clinical Impression: Acute dehydration Syncopal episodes Qualifiers: Syncope type: unspecified Qualified Code(s): R55 - Syncope and collapse Discharge Date/Time: 10/28/19 14:23 Instructions: DI for Syncope in Adults (Fainting), DI for Dehydration -- Adult Activity Restrictions/Additional Instructions: You have been diagnosed with [syncopal episode probably from acute dehydration. Your lab tests including blood count, chemistry and cardiac enzymes were unremarkable. Chest x-ray looked good with normal EKG. You were hydrated with IV fluid, Zofran for nausea, pantoprazole for stomach acid credit counselor and dis comfort]. What to do: *Take your medications as directed. You're going home with Zofran ODT and o meprazole for stomach discomfort. Take Zofran as needed for nausea and hydrate yourself well with small frequent sips of clear liquids. Take omeprazole daily for next couple of weeks for gastric discomfort. If your symptoms persists and have more bloody vomits, EGD may be helpful. *Follow up with your primary care provider in 2-3 days, call for an appointment. Let them know you were seen in the ED and that we asked you to be seen in follow up. *Return to ED if you have any new, worsening, or concerning symptoms, such as [chest pain, breathing difficulty, fainting episodes, unable to tolerate fluids, blood in your vomit or stool or any acute concerns]. Prescriptions: New omeprazole 20 mg capsule,delayed release(DR/EC) 20 mg PO DAILY Qty: 14 RF: 0 ondansetron 4 mg tablet,disintegrating 4 mg PO Q6-8H PRN (Reason: nausea and vomiting) Qty: 7 RF: 0 No Action albuterol sulfate [Ventolin HFA] 90 mcg/actuation HFA aerosol inhaler 2 puff INHALATION Q4-6H PRN (Reason: shortness of breath or wheezing) Qty: 6.7 RF: 0 albuterol sulfate 90 mcg/actuation aerosol powdr breath activated 2 inhalation INHALATION Q4H Qty: 1 RF: 0 albuterol sulfate [Ventolin HFA] 90 mcg/actuation HFA aerosol inhaler 2 puff INHALATION Q4-6H PRN (Reason: shortness of breath or wheezing) Qty: 18 RF: 0 albuterol sulfate 90 mcg/actuation HFA aerosol inhaler See Rx Instructions .ROUTE .COMPLEX Qty: 18 RF: 0 albuterol sulfate 2.5 mg /3 mL (0.083 %) solution for nebulization 2.5 mg INHALATION Q4-6H Qty: 180 RF: 0 prednisone 50 mg tablet 50 mg PO DAILY Qty: 3 RF: 0 albuterol sulfate 90 mcg/actuation HFA aerosol inhaler 1 puff INHALATION Q4-6H PRN (Reason: shortness of breath or wheezing) Qty: 8 RF: 0 albuterol sulfate 90 mcg/actuation HFA aerosol inhaler 2 puff INHALATION Q4-6H PRN (Reason: shortness of breath or wheezing) Qty: 18 RF: 0 prednisone 20 mg tablet 60 mg PO DAILY Qty: 15 RF: 0 Referrals: Edward Daugherty MD [Primary Care Provider] -
[2019-10-28 12:30] VITALS: BP 116/102; PULSE 75; RESP 16; O2SAT 100
[2019-10-28] MEDS: SODIUM CHLORIDE 0.9% 1,000 ML 999 ML IV (12:30)
[2019-10-28 12:31] LABS: Add Manual Diff / Slide Review NO; Basophils Absolute Auto 100 /uL (0-100); Basophils Percent Auto 0.8 % (0-2); Eosinophils Absolute Auto 400 /uL (0-450); Eosinophils Percent Auto 5.7 % (2-4); Hematocrit 44.7 % (41-53); Lymphocytes Absolute Auto 2400 /uL (1100-4500); Lymphocytes Percent Auto 30.8 % (25-40); Mean Corpuscular HGB Conc 35.9 % (30-36); Mean Corpuscular Hemoglobin 31.5 PG (26-34); Mean Corpuscular Volume 87.8 fL (80-100); Monocytes Absolute Auto 800 /uL (0-900); Monocytes Percent Auto 9.7 % (3-14); Neutrophils Absolute Auto 4100 /uL (1500-7000); Platelet Count 283 X10^3/uL (150-400); Red Blood Cell Count 5.09 X10^6/uL (4.5-5.9); Red Cell Distribution Width 13.3 % (11.6-14.8); White Blood Cell Count 7.8 X10^3/uL (4.5-11.0)
[2019-10-28] MEDS: ONDANSETRON 4 MG/2 ML INJ IV (12:32)
[2019-10-28] MEDS: ACETAMINOPHEN 325 MG TABLET 975 MG PO (12:32)
[2019-10-28] MEDS: PANTOPRAZOLE 40 MG VIAL IV (12:33)
[2019-10-28 12:39] LABS: Alanine Aminotransferase 16 IU/L (<50); Albumin 4.7 g/dL (3.5-5.0); Albumin Globulin Ratio 1.5 (1.0-2.8); Alkaline Phosphatase 83 U/L (38-126); Aspartate Aminotransferase 55 IU/L (17-59); BUN Creatinine Ratio 22.5 (6-22); Blood Urea Nitrogen 18 mg/dL (9-20); Calcium 9.7 mg/dL (8.4-10.2); Carbon Dioxide 31 mmol/L (22-32); Chloride 101 mmol/L (98-107); Creatine Kinase 69 U/L (55-170); Estimated Glomerular Filt Rate > 60.0 mL/min (>60); Globulin 3.2 g/dL (1.7-4.1); Glucose 95 mg/dL (70-100); HEMOLYSIS 46 (0-50); Potassium 4.6 mmol/L (3.4-5.1); Sodium 140 mmol/L (137-145); Total Protein 7.9 g/dL (6.3-8.2)
[2019-10-28 12:49] LABS: Troponin I < 0.012 ng/mL (0.01-0.034)
[2019-10-28 13:00] VITALS: BP 112/84; PULSE 66; RESP 14; O2SAT 100
[2019-10-28 14:23] VITALS: BP 103/67; PULSE 69; RESP 18; O2SAT 99
== END 2019-10-28 14:23 | disposition home or self-care (01) ==
PROVIDERS: Emergency Provider Nurse Practitioner Family; PCP Family Medicine
DX: E86.0 Dehydration (principal); R55 Syncope and collapse; R11.2 Nausea with vomiting, unspecified
CPT/HCPCS: 36415; 71045; 80053; 81003; 82550; 84484; 85025; 93005; 93010; 96361; 96374; 96375; 99284; 99285; C9113; J2405

== ENCOUNTER 2021-06-25 22:00 | Emergency (ER) | payer OTHER, MEDICAID, SELFPAY ==
[2021-06-25 22:03] VITALS: BP 142/92; PULSE 73; RESP 17; TEMP 36.3; O2SAT 95
--- NOTE | 2021-06-25 22:44 | PC.NURSE ---
Bilateral mouth pain/swelling started one month ago and then two weeks ago. Now only having pain on right upper/lower jaw with swelling. Reports nsaids and oragel not working for pain relief. Tried to see dentist but was told he needed referral from primary care and is not established with primary doc.
[2021-06-26] MEDS: AMOXICILLIN/CLAV 875/125 MG 1 TAB PO (00:19)
[2021-06-26] MEDS: BUPIVACAINE 0.5% W/ EPI (PF) 30 ML VIAL 5 ML SUBCUT (00:20)
[2021-06-26 00:27] VITALS: BP 138/86; PULSE 62; RESP 18; O2SAT 99
--- NOTE | 2021-06-26 05:06 | ED.DENTAL ---
HPI - Dental/Oral General Chief complaint: Dental/Oral Stated complaint: possible tooth infection Time Seen by Provider: 06/25/21 22:15 Source: patient Mode of arrival: Ambulatory Limitations: no limitations History of Present Illness HPI Narrative: 30M former smoker presents with some right lower dental pain and facial swelling over the past few days if not longer. He denies systemic findings such as fever or chills. He has no trouble swallowing. He is not dizzy nor weak or lightheaded. Injury. He states he has longstanding history of dental issues Related Data Previous Rx's Medication Instructions Recorded albuterol sulfate 90 mcg/actuation See Rx Instructions .ROUTE 06/17/18 aerosol inhaler .COMPLEX #18 gram albuterol sulfate 90 mcg/actuation 2 puff INHALATION Q4-6H PRN #6.7 07/15/18 aerosol inhaler (Ventolin HFA) gram albuterol sulfate 90 mcg/actuation 2 inhalation INHALATION Q4H #1 each 11/23/18 breath activated powder inhaler albuterol sulfate 90 mcg/actuation 2 puff INHALATION Q4-6H PRN #18 03/16/19 aerosol inhaler (Ventolin HFA) gram albuterol sulfate 2.5 mg INHALATION Q4-6H #180 ml 05/18/19 albuterol sulfate 90 mcg/actuation 1 puff INHALATION Q4-6H PRN #8 gram 06/19/19 aerosol inhaler prednisone 50 mg tablet 50 mg PO DAILY #3 tab 06/19/19 albuterol sulfate 90 mcg/actuation 2 puff INHALATION Q4-6H PRN #18 07/29/19 aerosol inhaler gram prednisone 20 mg tablet 60 mg PO DAILY #15 tab 09/13/19 ondansetron 4 mg disintegrating 4 mg PO Q6-8H PRN #7 tab 10/28/19 tablet omeprazole 20 mg capsule,delayed 20 mg PO DAILY #90 cap 11/17/19 release amoxicillin 875 mg-potassium 1 tab PO BID #20 tab 06/26/21 clavulanate 125 mg tablet (Augmentin) Allergies Allergy/AdvReac Type Severity Reaction Status Date / Time cat dander Allergy Intermediate Verified 10/28/19 12:12 Review of Systems Review of Systems Narrative: GENERAL: Denies chills, fatigue, malaise, fever, sweats. HEENT: See HPI RESPIRATORY: Denies dyspnea, cough, wheezing, hemoptysis, sputum. CARDIOVASCULAR: Denies chest pain, palpitations, orthopnea, edema, GASTROINTESTINAL: Denies nausea, vomiting, abdominal pain, diarrhea, constipation, melena. : Denies dysuria, frequency, incontinence, hematuria, urinary retention. MUSCULOSKELETAL: denies weakness, joint pain, or bony pain SKIN: Denies rash, skin lesions, or other NEUROLOGIC: Denies weakness, headache, numbness, change in speech, confusion, seizures, incoordination. PSYCHIATRIC: No concerning psychosocial issues. 12 point review of systems is negative except for those stated above Patient History Medical History Asthma Gastric ulcer Sternal fracture Family History Other Family history non-contributory Social History Smoking Status: Never smoker substance use type: does not use Smoking Status: Never smoker alcohol intake frequency: holidays/special occasions only Substance Use Type: marijuana Exam Narrative Exam Narrative: GEN: AOx3 and in mild distress EYES: Pupils are equal, round, and reactive to light and accommodation. Extraoccular muscles are intact bilaterally. There is no subconjunctival hemorrhage or exudate. ENT: Mild right mandibular swelling. Intraoral exam notes widespread dental decay, no obvious intraoral abscess or palpable area of fluctuance CHEST: Lungs are clear to auscultation bilaterally and free of wheezes, rales, or rhonchi. Heart rate is regular rhythm, there are no murmurs, clicks, rubs, or gallops. There is no chest wall tenderness. ABD: Abdomen is soft and nontender. There is no guarding or rebound. Bowel sounds are normal in all 4 quadrants. There is no mass or organomegaly. EXT: Full painless ROM of all extremities with no loss of sensation or strength. SKIN: Warm, pink, and dry. No erythema or rash Initial Vital Signs Initial Vital Signs: Vital Signs Temperature 97.3 F L 06/25/21 22:03 Pulse Rate 73 06/25/21 22:03 Respiratory Rate 17 06/25/21 22:03 Blood Pressure 142/92 H 06/25/21 22:03 Pulse Oximetry 95 06/25/21 22:03 Procedures Nerve Block Nerve Block 1: Time out performed: Yes Local Anesthetic: bupivacaine 0.25% and with epi Amount of anesthesia used (mL): 4 Side: right Intraoral Nerve Block: inferior alveolar Procedure Successful: Yes Patient Tolerated Procedure: Well Complications: none Course Orders Ordered: Discontinued Medications Amoxicillin/Clavulanate Potassium (Amoxicillin/Clav 875/125 Mg) 1 tab PO NOW ONE Stop: 06/26/21 00:15 Last Admin: 06/26/21 00:19 Dose: 1 tab Documented by: MATEUS Bupivacaine HCl/Epinephrine Bitart (Bupivacaine 0.5% W/ Epi (Pf) 30 Ml Vial) 5 ml SUBCUT NOW ONE Stop: 06/26/21 00:15 Last Admin: 06/26/21 00:20 Dose: 5 ml Documented by: MATEUS Vital Signs Vital signs: Vital Signs - 8 hr 06/25/21 22:03 06/26/21 00:27 Temperature 97.3 F L Pulse Rate 73 62 Respiratory Rate 17 18 Blood Pressure 142/92 H 138/86 Pulse Oximetry 95 99 Discharge Plan Departure Patient Disposition: Home Clinical Impression: Toothache, Dental abscess Instructions: Tooth Abscess, DI for Dental Pain Activity Restrictions/Additional Instructions: *You have been diagnosed with [dental abscess] *What to do: *Please continue to take your regular medications as directed. [ ] New medication prescriptions sent to your pharmacy: [ ] [x ] New medication written as a paper prescription [ ] No new medications given *Please follow up with your primary care provider in 2-3 days, call for an appointment. Let them know you were seen in the Emergency Department and that we ask that you be seen in follow up. We will electronically transmit a record of today's note if your PCP is in our system *If you do not have a primary care provider please contact the [facility] Resource line at [phone]. They will ask some questions about your medical history and help get you set up with a doctor in the community. *Return to Emergency Department if you should have any new, worsening or concerning symptoms, such as [fever greater than 101 F, shaking chills, worsening pain, persistent vomiting or other bothersome symptoms] Prescriptions: New amoxicillin-pot clavulanate [Augmentin] 875-125 mg tablet 1 tab PO BID Qty: 20 RF: 0 No Action omeprazole 20 mg capsule,delayed release(DR/EC) 20 mg PO DAILY Qty: 90 RF: 0 albuterol sulfate [Ventolin HFA] 90 mcg/actuation HFA aerosol inhaler 2 puff INHALATION Q4-6H PRN (Reason: shortness of breath or wheezing) Qty: 6.7 RF: 0 albuterol sulfate 90 mcg/actuation aerosol powdr breath activated 2 inhalation INHALATION Q4H Qty: 1 RF: 0 albuterol sulfate [Ventolin HFA] 90 mcg/actuation HFA aerosol inhaler 2 puff INHALATION Q4-6H PRN (Reason: shortness of breath or wheezing) Qty: 18 RF: 0 ondansetron 4 mg tablet,disintegrating 4 mg PO Q6-8H PRN (Reason: nausea and vomiting) Qty: 7 RF: 0 albuterol sulfate 90 mcg/actuation HFA aerosol inhaler See Rx Instructions .ROUTE .COMPLEX Qty: 18 RF: 0 albuterol sulfate 2.5 mg /3 mL (0.083 %) solution for nebulization 2.5 mg INHALATION Q4-6H Qty: 180 RF: 0 prednisone 50 mg tablet 50 mg PO DAILY Qty: 3 RF: 0 albuterol sulfate 90 mcg/actuation HFA aerosol inhaler 1 puff INHALATION Q4-6H PRN (Reason: shortness of breath or wheezing) Qty: 8 RF: 0 albuterol sulfate 90 mcg/actuation HFA aerosol inhaler 2 puff INHALATION Q4-6H PRN (Reason: shortness of breath or wheezing) Qty: 18 RF: 0 prednisone 20 mg tablet 60 mg PO DAILY Qty: 15 RF: 0 Referrals: Edward Daugherty MD [Primary Care Provider] -
== END 2021-06-26 00:28 | disposition home or self-care (01) ==
PROVIDERS: Emergency Provider Emergency Medicine; PCP Family Medicine
DX: K04.7 Periapical abscess without sinus (principal); K08.89 Other specified disorders of teeth and supporting structures
CPT/HCPCS: 64450; 99283

== ENCOUNTER 2021-09-29 20:34 | Emergency (ER) | payer OTHER, MEDICAID, SELFPAY ==
[2021-09-29 20:39] VITALS: BP 111/71; PULSE 85; RESP 22; TEMP 36.8; O2SAT 98
--- NOTE | 2021-09-29 20:44 | ED_ITS ---
HPI - Neuro Symptoms/Deficit General Chief Complaint: Neuro Symptoms/Deficit Stated Complaint: SEIZURES Time Seen by Provider: 09/29/21 20:39 Source: patient Mode of arrival: Ambulatory History of Present Illness HPI Narrative: 31-year-old male nonsmoker with history of asthma presents with his significant other and a chief complaint of a witnessed seizure this evening. He had been in his normal state of health when he had put his significant other describes as a 1 minute generalized tonic-clonic seizure just prior to arrival. He had a postictal phase that largely resolved prior to arrival. He did not bite his tongue and did not lose control of bowel or bladder. Patient has had no recent trauma or head injury. He has had no fever or chills. He denies any change in medications or diet. He has a former history of alcohol abuse about 8 years ago and no longer drinks much at all, he denies any other injuries or complaints and is otherwise at baseline On Anticoagulants: No Related Data Previous Rx's Medication Instructions Recorded albuterol sulfate 90 mcg/actuation See Rx Instructions .ROUTE 06/17/18 aerosol inhaler .COMPLEX #18 gram albuterol sulfate 90 mcg/actuation 2 puff INHALATION Q4-6H PRN #6.7 07/15/18 aerosol inhaler (Ventolin HFA) gram albuterol sulfate 90 mcg/actuation 2 inhalation INHALATION Q4H #1 each 11/23/18 breath activated powder inhaler albuterol sulfate 90 mcg/actuation 2 puff INHALATION Q4-6H PRN #18 03/16/19 aerosol inhaler (Ventolin HFA) gram albuterol sulfate 2.5 mg INHALATION Q4-6H #180 ml 05/18/19 albuterol sulfate 90 mcg/actuation 1 puff INHALATION Q4-6H PRN #8 gram 06/19/19 aerosol inhaler prednisone 50 mg tablet 50 mg PO DAILY #3 tab 06/19/19 albuterol sulfate 90 mcg/actuation 2 puff INHALATION Q4-6H PRN #18 07/29/19 aerosol inhaler gram prednisone 20 mg tablet 60 mg PO DAILY #15 tab 09/13/19 ondansetron 4 mg disintegrating 4 mg PO Q6-8H PRN #7 tab 10/28/19 tablet omeprazole 20 mg capsule,delayed 20 mg PO DAILY #90 cap 11/17/19 release amoxicillin 875 mg-potassium 1 tab PO BID #20 tab 06/26/21 clavulanate 125 mg tablet (Augmentin) albuterol sulfate 90 mcg/actuation 2 puff INHALATION Q4H PRN #1 each 09/29/21 breath activated powder inhaler Allergies Allergy/AdvReac Type Severity Reaction Status Date / Time cat dander Allergy Intermediate Verified 10/28/19 12:12 Review of Systems Review of Systems Narrative: GENERAL: Denies chills, fatigue, malaise, fever, sweats. HEENT: Denies sinus pain, ear pain, sore throat, difficulty swallowing, dizziness. RESPIRATORY: Denies dyspnea, cough, wheezing, hemoptysis, sputum. CARDIOVASCULAR: Denies chest pain, palpitations, orthopnea, edema, GASTROINTESTINAL: Denies nausea, vomiting, abdominal pain, diarrhea, constipation, melena. : Denies dysuria, frequency, incontinence, hematuria, urinary retention. MUSCULOSKELETAL: denies weakness, joint pain, or bony pain SKIN: Denies rash, skin lesions, or other NEUROLOGIC: See HPI PSYCHIATRIC: No concerning psychosocial issues. 12 point review of systems is negative except for those stated above Hematologic/Lymphatic On Anticoagulants: No Patient History Medical History Asthma Gastric ulcer Sternal fracture Family History Other Family history non-contributory Social History Smoking Status: Never smoker substance use type: does not use Smoking Status: Never smoker alcohol intake frequency: holidays/special occasions only Substance Use Type: marijuana Exam Narrative Exam Narrative: GENERAL: [31] year old patient appears stated age. Well- developed patient, in mild distress. GCS 15 HEAD: Atraumatic. Normocephalic. EYES: Pupils equal round and reactive. Extraocular motions intact. No scleral icterus. No injection or drainage. ENT: Nose without bleeding, purulent drainage. Throat without erythema, tonsillar hypertrophy or exudate. Airway patent. No tongue injury, no dental injury NECK: Trachea midline. Non tender CARDIOVASCULAR: Regular rate and rhythm without murmurs, gallops, or rubs. RESPIRATORY: Clear to auscultation. Breath sounds equal bilaterally. No wheezes, rales, or rhonchi. GASTROINTESTINAL: Abdomen soft, non-tender, nondistended. EXTREMITIES: No edema or joint tenderness. BACK: Nontender without deformity or crepitance. No flank tenderness. NEURO: AOx3. Cranial nerves 2-12 grossly intact. No extremity weakness, numbness or tingling SKIN: No rash or erythema of visible areas Initial Vital Signs Initial Vital Signs: Vital Signs Temperature 98.3 F 09/29/21 20:39 Pulse Rate 85 09/29/21 20:39 Respiratory Rate 22 09/29/21 20:39 Blood Pressure 111/71 09/29/21 20:39 Pulse Oximetry 98 09/29/21 20:39 Course Orders Ordered: ED Orders 09/29/21 20:55 Basic Metabolic Panel Stat Complete Blood Count AUTO DIFF Stat Magnesium Stat Prolactin Stat 09/29/21 21:08 CT head/brain wo con Stat Discontinued Medications Sodium Chloride (Normal Saline 0.9%) 1,000 mls @ 150 mls/hr IV CONT ANDREA Last Admin: 09/29/21 21:35 Dose: 150 mls/hr Documented by: REBECCA Vital Signs Vital signs: Vital Signs - 8 hr 09/29/21 23:35 Pulse Rate 69 Respiratory Rate 16 Blood Pressure 115/70 Pulse Oximetry 100 MDM - Neuro Symptoms/Deficit Lab Data Result diagrams: 09/29/21 20:55 09/29/21 20:55 Labs: Lab Results 09/29/21 09/29/21 Range/Units 20:55 20:55 WBC 9.6 (4.5-11.0) X10^3/uL RBC 4.52 (4.5-5.9) X10^6/uL Hgb 13.5 (13.5-17.5) g/dL Hct 39.6 L (41-53) % MCV 87.6 (80-100) fL MCH 29.8 (26-34) PG MCHC 34.0 (30-36) % RDW 12.7 (11.6-14.8) % Plt Count 271 (150-400) X10^3/uL Neut % (Auto) 53.4 (50-75) % Lymph % (Auto) 33.9 (25-40) % Mcnairy % (Auto) 7.6 (3-14) % Eos % (Auto) 4.5 H (2-4) % Baso % (Auto) 0.6 (0-2) % Neut # (Auto) 5100 (0778-4363) /uL Lymph # (Auto) 3200 (7619-3510) /uL Mcnairy # (Auto) 700 (0-900) /uL Eos # (Auto) 400 (0-450) /uL Baso # (Auto) 100 (0-100) /uL Sodium 140 (137-145) mmol/L Potassium 4.3 (3.4-5.1) mmol/L Chloride 101 (98-107) mmol/L Carbon Dioxide 32 (22-32) mmol/L BUN 16 (9-20) mg/dL Creatinine 0.81 (0.66-1.25) mg/dL Estimated GFR > 60.0 (>60) mL/min BUN/Creatinine Ratio 19.8 (6-22) Glucose 93 (70-100) mg/dL Calcium 9.3 (8.4-10.2) mg/dL Magnesium 1.9 (1.6-2.3) mg/dL Prolactin 27.9 H (3.7-17.9) ng/mL Point of Care Testing Glucose POC [address] scan - head: Radiologist's Impression: [address] Scan ReportSigned Patient: Fritz Ware [facility]#: [id number]: 1990Acct:[id number]/Sex: 31 / MDate of Service: 09/29/21Loc: EDAccession Number: [id number] Procedure: CT head/brain wo con Ordering Provider: Hank Khan D.O. PROCEDURE: CT HEAD/BRAIN WO CON INDICATIONS: first seizure TECHNIQUE: Noncontrast 4.5 mm thick angled axial sections acquired from the foramen magnum to the vertex, with coronal and sagittal reformats. For radiation dose reduction, the following was used: automated exposure control, adjustment of mA and/or kV according to patient size. COMPARISON: None. FINDINGS: Image quality: Excellent. CSF spaces: Basal cisterns are patent. No extra-axial fluid collections. Ventricles are normal in size and shape. Brain: No midline shift. No intracranial masses or hemorrhage. Gomez-white matter interface is normal. Skull and face: Calvarium and visualized facial bones are intact, without suspicious lesions. Sinuses: Visualized sinuses and mastoids are clear. IMPRESSION: No CT evidence of acute intracranial pathology. Dictated by: Wes Cole M.D. on 09/29/2021 at 22:02 Approved by: Wes Cole M.D. on 09/29/2021 at 22:02 [facility] Narrative Medical decision making narrative: Patient with reassuring history and physical. No ongoing symptoms, no significant findings on labs or CT scan. Patient at baseline for duration of visit. Extensive return precautions given, instructions not to drive until cleared by primary care provider discussed and understood. Questions answered to his apparent satisfaction Discharge Plan Departure Patient Disposition: Home Clinical Impression: Seizure Instructions: DI for Seizure Disorder -- Adult Activity Restrictions/Additional Instructions: *You have been diagnosed with [seizure with very reassuring physical exam and labs.] *What to do: *Please continue to take your regular medications as directed. [ ] New medication prescriptions sent to your pharmacy: [ ] [ ] New medication written as a paper prescription [ ] No new medications given *Please follow up with your primary care provider in 2-3 days, call for an appointment. Let them know you were seen in the Emergency Department and that we ask that you be seen in follow up. We will electronically transmit a record of today's note if your PCP is in our system * as we discussed cannot drive until seen and evaluated by her primary care provider in this likely could persist until your able to be cleared by a neurologist. *If you do not have a primary care provider please contact the [facility] Resource line at [phone]. They will ask some questions about your medical history and help get you set up with a doctor in the community. *Return to Emergency Department if you should have any new, worsening or concerning symptoms, such as [fever greater than 101 F, shaking chills, worsening pain, persistent vomiting or other bothersome symptoms] Prescriptions: New albuterol sulfate 90 mcg/actuation aerosol powdr breath activated 2 puff INHALATION Q4H PRN (Reason: shortness of breath or wheezing) Qty: 1 RF: 0 No Action omeprazole 20 mg capsule,delayed release(DR/EC) 20 mg PO DAILY Qty: 90 RF: 0 albuterol sulfate [Ventolin HFA] 90 mcg/actuation HFA aerosol inhaler 2 puff INHALATION Q4-6H PRN (Reason: shortness of breath or wheezing) Qty: 6.7 RF: 0 albuterol sulfate 90 mcg/actuation aerosol powdr breath activated 2 inhalation INHALATION Q4H Qty: 1 RF: 0 albuterol sulfate [Ventolin HFA] 90 mcg/actuation HFA aerosol inhaler 2 puff INHALATION Q4-6H PRN (Reason: shortness of breath or wheezing) Qty: 18 RF: 0 ondansetron 4 mg tablet,disintegrating 4 mg PO Q6-8H PRN (Reason: nausea and vomiting) Qty: 7 RF: 0 albuterol sulfate 90 mcg/actuation HFA aerosol inhaler See Rx Instructions .ROUTE .COMPLEX Qty: 18 RF: 0 albuterol sulfate 2.5 mg /3 mL (0.083 %) solution for nebulization 2.5 mg INHALATION Q4-6H Qty: 180 RF: 0 prednisone 50 mg tablet 50 mg PO DAILY Qty: 3 RF: 0 albuterol sulfate 90 mcg/actuation HFA aerosol inhaler 1 puff INHALATION Q4-6H PRN (Reason: shortness of breath or wheezing) Qty: 8 RF: 0 albuterol sulfate 90 mcg/actuation HFA aerosol inhaler 2 puff INHALATION Q4-6H PRN (Reason: shortness of breath or wheezing) Qty: 18 RF: 0 prednisone 20 mg tablet 60 mg PO DAILY Qty: 15 RF: 0 amoxicillin-pot clavulanate [Augmentin] 875-125 mg tablet 1 tab PO BID Qty: 20 RF: 0 Referrals: Edward Daugherty MD [Primary Care Provider] -
--- NOTE | 2021-09-29 21:08 | DI.CT.S_ITS ---
PROCEDURE: CT HEAD/BRAIN WO CON INDICATIONS: first seizure TECHNIQUE: Noncontrast 4.5 mm thick angled axial sections acquired from the foramen magnum to the vertex, with coronal and sagittal reformats. For radiation dose reduction, the following was used: automated exposure control, adjustment of mA and/or kV according to patient size. COMPARISON: None. FINDINGS: Image quality: Excellent. CSF spaces: Basal cisterns are patent. No extra-axial fluid collections. Ventricles are normal in size and shape. Brain: No midline shift. No intracranial masses or hemorrhage. Gomez-white matter interface is normal. Skull and face: Calvarium and visualized facial bones are intact, without suspicious lesions. Sinuses: Visualized sinuses and mastoids are clear. IMPRESSION: No CT evidence of acute intracranial pathology. Dictated by: Wes Cole M.D. on 09/29/2021 at 22:02 Approved by: Wes Cole M.D. on 09/29/2021 at 22:02
[2021-09-29 21:14] LABS: Add Manual Diff / Slide Review NO; Basophils Absolute Auto 100 /uL (0-100); Basophils Percent Auto 0.6 % (0-2); Eosinophils Absolute Auto 400 /uL (0-450); Eosinophils Percent Auto 4.5 % (2-4); Hematocrit 39.6 % (41-53); Hemoglobin 13.5 g/dL (13.5-17.5); Lymphocytes Absolute Auto 3200 /uL (1100-4500); Lymphocytes Percent Auto 33.9 % (25-40); Mean Corpuscular Hemoglobin 29.8 PG (26-34); Mean Corpuscular Volume 87.6 fL (80-100); Monocytes Absolute Auto 700 /uL (0-900); Monocytes Percent Auto 7.6 % (3-14); Neutrophils Absolute Auto 5100 /uL (1500-7000); Neutrophils Percent Auto 53.4 % (50-75); Platelet Count 271 X10^3/uL (150-400); Red Blood Cell Count 4.52 X10^6/uL (4.5-5.9); Red Cell Distribution Width 12.7 % (11.6-14.8); White Blood Cell Count 9.6 X10^3/uL (4.5-11.0)
[2021-09-29 21:21] LABS: BUN Creatinine Ratio 19.8 (6-22); Blood Urea Nitrogen 16 mg/dL (9-20); Calcium 9.3 mg/dL (8.4-10.2); Carbon Dioxide 32 mmol/L (22-32); Chloride 101 mmol/L (98-107); Estimated Glomerular Filt Rate > 60.0 mL/min (>60); Glucose 93 mg/dL (70-100); HEMOLYSIS < 15 (0-50); Magnesium 1.9 mg/dL (1.6-2.3); Potassium 4.3 mmol/L (3.4-5.1); Sodium 140 mmol/L (137-145)
[2021-09-29] MEDS: SODIUM CHLORIDE 0.9% 1,000 ML 150 ML IV (21:35)
[2021-09-29 21:38] LABS: Prolactin 27.9 ng/mL (3.7-17.9)
[2021-09-29 23:35] VITALS: BP 115/70; PULSE 69; RESP 16; O2SAT 100
--- NOTE | 2021-10-04 13:58 | PC.NURSE ---
late entry per RN IV fluids DC'd at 2300 prior to discharge
== END 2021-09-29 23:35 | disposition home or self-care (01) ==
PROVIDERS: Emergency Provider Emergency Medicine; PCP Family Medicine
DX: R56.9 Unspecified convulsions (principal)
CPT/HCPCS: 70450; 80048; 82962; 83735; 84146; 85025; 96360; 99284

== ENCOUNTER 2023-02-09 22:33 | Emergency (ER) | payer OTHER, MEDICAID, SELFPAY ==
[2023-02-09 22:43] VITALS: PULSE 90; RESP 22; O2SAT 99
[2023-02-09] MEDS: ALBUTEROL 2.5 MG/3 ML NEB (ADULT) 5 MG INH (22:43)
[2023-02-09 22:45] VITALS: BP 122/79; PULSE 98; RESP 22; TEMP 36.6; O2SAT 96; BMI 18.6
--- NOTE | 2023-02-09 22:58 | ED_ITS ---
HPI - General Adult General Chief complaint: Shortness of Breath/Dyspnea Stated complaint: asthma attack/sob/tightness of chest Time Seen by Provider: 02/09/23 22:47 Source: patient Mode of arrival: Ambulatory History of Present Illness HPI narrative: Patient is a 32-year-old male. Does have history of asthma. He states that he ran out of his inhaler. He is allergic to cats. He is over at a family member's house where there was a CT. He stated he started to have wheezing but did not have an inhaler to use. He states he does have a nebulizer at home but it is broken. Came to the emergency department because of the problems br eathing. Related Data Previous Rx's Medication Instructions Recorded albuterol sulfate 90 mcg/actuation See Rx Instructions .Route 06/17/18 aerosol inhaler .COMPLEX #18 grams albuterol sulfate 90 mcg/actuation 2 puff inhalation Q4-6H PRN 07/15/18 aerosol inhaler (Ventolin HFA) shortness of breath or wheezing #6.7 grams albuterol sulfate 90 mcg/actuation 2 inhalation inhalation Q4H asthma 11/23/18 breath activated powder inhaler #1 ea albuterol sulfate 90 mcg/actuation 2 puff inhalation Q4-6H PRN 03/16/19 aerosol inhaler (Ventolin HFA) shortness of breath or wheezing #18 grams albuterol sulfate 2.5 mg/3 mL 2.5 mg (3 mL) inhalation Q4-6H 05/18/19 (0.083 %) solution for nebulization #180 mL albuterol sulfate 90 mcg/actuation 1 puff inhalation Q4-6H PRN 06/19/19 aerosol inhaler shortness of breath or wheezing #8 grams prednisone 50 mg tablet 50 mg PO DAILY #3 tabs 06/19/19 albuterol sulfate 90 mcg/actuation 2 puff inhalation Q4-6H PRN 07/29/19 aerosol inhaler shortness of breath or wheezing #18 grams prednisone 20 mg tablet 60 mg PO DAILY #15 tabs 09/13/19 ondansetron 4 mg disintegrating 4 mg PO Q6-8H PRN nausea and 10/28/19 tablet vomiting #7 tabs omeprazole 20 mg capsule,delayed 20 mg PO DAILY #90 caps 11/17/19 release amoxicillin 875 mg-potassium 1 tab PO BID #20 tabs 06/26/21 clavulanate 125 mg tablet (Augmentin) albuterol sulfate 90 mcg/actuation 2 puff inhalation Q4H PRN 09/29/21 breath activated powder inhaler shortness of breath or wheezing #1 ea Allergies Allergy/AdvReac Type Severity Reaction Status Date / Time cat dander Allergy Intermediate Verified 10/28/19 12:12 Review of Systems Constitutional Constitutional: Reports system reviewed and no additional complaints, except as documented Cardiovascular Cardiovascular: Reports system reviewed and no additional complaints, except as documented Respiratory Respiratory: Reports system reviewed and no additional complaints, except as documented Allergic/Immunologic Allergic/Immunologic: Reports system reviewed and no additional complaints, except as documented Patient History Medical History Asthma Gastric ulcer Sternal fracture Family History Other Family history non-contributory Social History Smoking Status: Never smoker substance use type: does not use Smoking Status: Never smoker alcohol intake frequency: holidays/special occasions only Substance Use Type: marijuana Exam Initial Vital Signs Initial Vital Signs: Vital Signs Pulse Rate 90 02/09/23 22:43 Respiratory Rate 22 02/09/23 22:43 Pulse Oximetry 99 02/09/23 22:43 Oxygen Delivery Method Room Air 02/09/23 22:43 Oxygen Flow Rate 0 02/09/23 22:43 Fraction of Inspired Oxygen 21 02/09/23 22:43 Const General: cooperative, comfortable and No ill appearing Resp Effort & Inspection: respiratory distress and tachypneic Auscultation: wheezes Cardio Rate: regular rate Rhythm: regular rhythm Skin General: no rashes or lesions noted Course Orders Ordered: Discontinued Medications Albuterol (Albuterol 2.5 Mg/3 Ml Neb (Adult)) 5 mg INH NOW ONE Stop: 02/09/23 22:41 Last Admin: 02/09/23 22:43 Dose: 5 mg Documented By: JOANNA Albuterol (Albuterol Hfa Prepack) 1 box MISC SEEINSTR ONE Stop: 02/09/23 23:23 Last Admin: 02/09/23 23:31 Dose: 1 box Documented By: KARRIE Dexamethasone (Dexamethasone 4 Mg Tablet) 12 mg PO NOW ONE Stop: 02/09/23 23:00 Last Admin: 02/09/23 23:11 Dose: 12 mg Documented By: KARRIE Vital Signs Vital signs: Vital Signs - 8 hr 02/09/23 22:45 02/09/23 22:43 02/09/23 23:32 Temperature 98 F Pulse Rate 98 H 90 98 H Respiratory Rate 22 22 16 Blood Pressure 122/79 112/76 Pulse Oximetry 96 99 98 Oxygen Delivery Method Room Air Room Air Room Air Oxygen Flow Rate 0 Fraction of Inspired Oxygen 21 Medical Decision Making Differential Diagnosis Chronic Condition is having:: Moderate exacerbation Condition is at treatment goal?: Yes MDM Narrative Medical decision making narrative: After receiving albuterol here in the emergency department the patient states that he feels much better. He was given a single dose of Decadron. Was observed for a period of time without return of wheezing. I did refill his albuterol. Will discharge patient home with return precautions. He expressed understanding and agreement. Discharge Plan Departure Patient Disposition: Home Clinical Impression: Asthma exacerbation Instructions: DI for Asthma -- Adult Activity Restrictions/Additional Instructions: Use the albuterol as needed. Continue the rest of your medications as directed. Return to the emergency department for any new symptoms. Prescriptions: No Action omeprazole 20 mg capsule,delayed release(DR/EC) 20 mg PO DAILY Qty: 90 0RF albuterol sulfate [Ventolin HFA] 90 mcg/actuation HFA aerosol inhaler 2 puff INHALATION Q4-6H PRN (Reason: shortness of breath or wheezing) Qty: 6.7 0RF albuterol sulfate 90 mcg/actuation aerosol powdr breath activated 2 inhalation INHALATION Q4H Qty: 1 0RF albuterol sulfate [Ventolin HFA] 90 mcg/actuation HFA aerosol inhaler 2 puff INHALATION Q4-6H PRN (Reason: shortness of breath or wheezing) Qty: 18 0RF ondansetron 4 mg tablet,disintegrating 4 mg PO Q6-8H PRN (Reason: nausea and vomiting) Qty: 7 0RF albuterol sulfate 90 mcg/actuation HFA aerosol inhaler See Rx Instructions .ROUTE .COMPLEX Qty: 18 0RF Rx Instructions: 1-2 puffs q4-6hr as needed for wheezing / sob albuterol sulfate 2.5 mg /3 mL (0.083 %) solution for nebulization 2.5 mg INHALATION Q4-6H Qty: 180 0RF prednisone 50 mg tablet 50 mg PO DAILY Qty: 3 0RF albuterol sulfate 90 mcg/actuation HFA aerosol inhaler 1 puff INHALATION Q4-6H PRN (Reason: shortness of breath or wheezing) Qty: 8 0RF albuterol sulfate 90 mcg/actuation HFA aerosol inhaler 2 puff INHALATION Q4-6H PRN (Reason: shortness of breath or wheezing) Qty: 18 0RF prednisone 20 mg tablet 60 mg PO DAILY Qty: 15 0RF amoxicillin-pot clavulanate [Augmentin] 875-125 mg tablet 1 tab PO BID Qty: 20 0RF albuterol sulfate 90 mcg/actuation aerosol powdr breath activated 2 puff INHALATION Q4H PRN (Reason: shortness of breath or wheezing) Qty: 1 0RF Rx Instructions: administer with spacer Referrals: Edward Daugherty MD [Primary Care Provider] - Stand Alone Forms: Patient Portal/API
[2023-02-09] MEDS: dexAMETHasone 4 MG TABLET 12 MG PO (23:11)
[2023-02-09] MEDS: ALBUTEROL HFA PREPACK 1 BOX MISC (23:31)
[2023-02-09 23:32] VITALS: BP 112/76; PULSE 98; RESP 16; O2SAT 98
== END 2023-02-09 23:32 | disposition home or self-care (01) ==
PROVIDERS: Emergency Provider Emergency Medicine; PCP Family Medicine
DX: J45.901 Unspecified asthma with (acute) exacerbation (principal)
CPT/HCPCS: 94640; 99283; J7613

== ENCOUNTER 2023-02-16 21:44 | Emergency (ER) | payer OTHER, MEDICAID, SELFPAY ==
[2023-02-16 21:53] VITALS: BP 152/74; PULSE 92; RESP 18; TEMP 36.6; O2SAT 96; BMI 18.6
--- NOTE | 2023-02-16 22:02 | DI.RAD.S_ITS ---
PROCEDURE: XR CHEST 2V INDICATIONS: cough, wheeze TECHNIQUE: 2 views of the chest were acquired. COMPARISON: [facility], CR, XR CHEST 1V, 10/28/2019, 12:30. FINDINGS: Surgical changes and devices: None. Lungs and pleura: Lungs are clear. No pleural effusions or pneumothorax. Mediastinum: Mediastinal contours are normal. Heart size is normal. Bones and chest wall: No suspicious bony abnormalities. Soft tissues appear unremarkable. IMPRESSION: 1. No acute cardiopulmonary disease. Dictated by: Chino Osborne M.D. on 02/16/2023 at 23:27 Approved by: Chino Osborne M.D. on 02/16/2023 at 23:27
[2023-02-16 22:04] VITALS: PULSE 102; RESP 22; O2SAT 98
[2023-02-16] MEDS: ALBUTEROL 2.5 MG/3 ML NEB (ADULT) 5 MG INH (22:04)
--- NOTE | 2023-02-16 22:31 | ED_ITS ---
HPI - Asthma General Chief Complaint: Asthma Stated Complaint: asthma attack Time Seen by Provider: 02/16/23 22:02 Source: patient Mode of arrival: Ambulatory History of Present Illness HPI Narrative: 32M nonsmoker with a history of asthma presents with a chief complaint of wheezing and cough for the past day or 2. He states he is visiting and ran out of his routine medications most notably albuterol. Denies any fever or chills. He is had no runny nose, sore throat or chest pain. He is had no fever or chills. He denies nausea, vomiting or diarrhea. Related Data Previous Rx's Medication Instructions Recorded albuterol sulfate 90 mcg/actuation See Rx Instructions .Route 06/17/18 aerosol inhaler .COMPLEX #18 grams albuterol sulfate 90 mcg/actuation 2 puff inhalation Q4-6H PRN 07/15/18 aerosol inhaler (Ventolin HFA) shortness of breath or wheezing #6.7 grams albuterol sulfate 90 mcg/actuation 2 inhalation inhalation Q4H asthma 11/23/18 breath activated powder inhaler #1 ea albuterol sulfate 90 mcg/actuation 2 puff inhalation Q4-6H PRN 03/16/19 aerosol inhaler (Ventolin HFA) shortness of breath or wheezing #18 grams albuterol sulfate 2.5 mg/3 mL 2.5 mg (3 mL) inhalation Q4-6H 05/18/19 (0.083 %) solution for nebulization #180 mL albuterol sulfate 90 mcg/actuation 1 puff inhalation Q4-6H PRN 06/19/19 aerosol inhaler shortness of breath or wheezing #8 grams prednisone 50 mg tablet 50 mg PO DAILY #3 tabs 06/19/19 albuterol sulfate 90 mcg/actuation 2 puff inhalation Q4-6H PRN 07/29/19 aerosol inhaler shortness of breath or wheezing #18 grams prednisone 20 mg tablet 60 mg PO DAILY #15 tabs 09/13/19 ondansetron 4 mg disintegrating 4 mg PO Q6-8H PRN nausea and 10/28/19 tablet vomiting #7 tabs omeprazole 20 mg capsule,delayed 20 mg PO DAILY #90 caps 11/17/19 release amoxicillin 875 mg-potassium 1 tab PO BID #20 tabs 06/26/21 clavulanate 125 mg tablet (Augmentin) albuterol sulfate 90 mcg/actuation 2 puff inhalation Q4H PRN 09/29/21 breath activated powder inhaler shortness of breath or wheezing #1 ea prednisone 10 mg tablet See Rx Instructions .Route 02/16/23 .COMPLEX #30 tabs Allergies Allergy/AdvReac Type Severity Reaction Status Date / Time cat dander Allergy Intermediate Verified 10/28/19 12:12 Review of Systems Review of Systems Narrative: GENERAL: Denies chills, fatigue, malaise, fever, sweats. HEENT: Denies sinus pain, ear pain, sore throat, difficulty swallowing, dizziness. RESPIRATORY: See HPI CARDIOVASCULAR: Denies chest pain, palpitations, orthopnea, edema, GASTROINTESTINAL: Denies nausea, vomiting, abdominal pain, diarrhea, constipation, melena. : Denies dysuria, frequency, incontinence, hematuria, urinary retention. MUSCULOSKELETAL: denies weakness, joint pain, or bony pain SKIN: Denies rash, skin lesions, or other NEUROLOGIC: Denies weakness, headache, numbness, change in speech, confusion, seizures, incoordination. PSYCHIATRIC: No concerning psychosocial issues. 12 point review of systems is negative except for those stated above Patient History Medical History Asthma Gastric ulcer Sternal fracture Family History Other Family history non-contributory Social History Smoking Status: Never smoker substance use type: does not use Smoking Status: Never smoker alcohol intake frequency: holidays/special occasions only Substance Use Type: marijuana Exam Narrative Exam Narrative: GENERAL: [32] year old patient appears stated age. Well-developed patient, in mild distress. HEAD: Atraumatic. Normocephalic. EYES: Pupils equal round and reactive. Extraocular motions intact. No scleral icterus. No injection or drainage. ENT: Nose without bleeding, purulent drainage. Throat without erythema, tonsillar hypertrophy or exudate. Airway patent. NECK: Trachea midline. Non tender CARDIOVASCULAR: Regular rate and rhythm without murmurs, gallops, or rubs. RESPIRATORY: Increased work of breathing, inspiratory and expiratory wheeze, no rales or rhonchi GASTROINTESTINAL: Abdomen soft, non-tender, nondistended. EXTREMITIES: No edema or joint tenderness. BACK: Nontender without deformity or crepitance. No flank tenderness. NEURO: AOx3. SKIN: No rash or erythema of visible areas Initial Vital Signs Initial Vital Signs: Vital Signs Temperature 97.8 F 02/16/23 21:53 Pulse Rate 92 H 02/16/23 21:53 Respiratory Rate 18 02/16/23 21:53 Blood Pressure 152/74 H 02/16/23 21:53 Pulse Oximetry 96 02/16/23 21:53 Oxygen Delivery Method Room Air 02/16/23 21:53 Course Orders Ordered: Discontinued Medications Albuterol (Albuterol 2.5 Mg/3 Ml Neb (Adult)) 5 mg INH NOW ONE Stop: 02/16/23 22:01 Last Admin: 02/16/23 22:04 Dose: 5 mg Documented By: JOANNA Albuterol (Albuterol Hfa Prepack) 1 box MISC SEEINSTR ONE Stop: 02/16/23 23:07 Last Admin: 02/16/23 23:35 Dose: 1 box Documented By: MARIA DEL CARMEN Prednisone (Prednisone 20 Mg Tablet) 40 mg PO NOW ONE Stop: 02/16/23 22:03 Last Admin: 02/16/23 22:42 Dose: 40 mg Documented By: MARIA DEL CARMEN Reevaluation(s) Reevaluation #1: Respiratory therapy has seen patient, provided multiple nebs and patient feels significant improvement, he has become slightly tachycardic which is thought to be related to bronchodilators Vital Signs Vital signs: Vital Signs - 8 hr 02/16/23 21:53 02/16/23 22:04 Temperature 97.8 F Pulse Rate 92 H 102 H Respiratory Rate 18 22 Blood Pressure 152/74 H Pulse Oximetry 96 98 Oxygen Delivery Method Room Air Room Air Oxygen Flow Rate 0 Fraction of Inspired Oxygen 21 MDM - Asthma Lab Data Labs: Lab Results 02/16/23 Range/Units 22:48 SARS-CoV-2 (PCR) Negative (Negative) Influenza A (RT-PCR) Flu a negative (NEGATIVE) Influenza B (RT-PCR) Flu b negative (NEGATIVE) RSV (PCR) Negative (Negative) MDM Narrative Medical decision making narrative: 32[] year old patient presents with asthma exacerbation Multiple etiologies for patient's symptoms considered including, but not limited to: [Asthma exacerbation versus pneumonia versus other] Prior Charts reviewed in our EMR Primary Historian: patient Labs reviewed and interpreted by myself: Imaging reviewed: Patient's symptoms improved over duration of stay with above-stated therapies. Findings and discharge diagnosis discussed with patient/family followed by verbalization of understanding Return precautions discussed with patient/family whom verbalize understanding of diagnosis and plan Discharge Plan Departure Patient Disposition: Home Clinical Impression: Asthma with acute exacerbation Instructions: DI for Asthma -- Adult Activity Restrictions/Additional Instructions: *You have been diagnosed with [asthma exacerbation] *What to do: *Please continue to take your regular medications as directed. [ x] New medication prescriptions sent to your pharmacy: [ [facility]] [ ] New medication written as a paper prescription [ ] No new medications given *Please follow up with your primary care provider in 2-3 days, call for an appointment. Let them know you were seen in the Emergency Department and that we ask that you be seen in follow up. We will electronically transmit a record of today's note if your PCP is in our system *If you do not have a primary care provider please contact the [facility] Resource line at [phone]. They will ask some questions about your medical history and help get you set up with a doctor in the community. *Return to Emergency Department if you should have any new, worsening or concerning symptoms, such as [fever greater than 101 F, shaking chills, worsening pain, persistent vomiting or other bothersome symptoms] Prescriptions: New prednisone 10 mg tablet See Rx Instructions .ROUTE .COMPLEX Qty: 30 0RF Rx Instructions: Day 1,2,3: 40mg PO Daily Day 4,5,6: 30mg PO Daily Day 7,8,9: 20mg PO Daily Day 10,11,12: 10mg PO Daily #30 No Action omeprazole 20 mg capsule,delayed release(DR/EC) 20 mg PO DAILY Qty: 90 0RF albuterol sulfate [Ventolin HFA] 90 mcg/actuation HFA aerosol inhaler 2 puff INHALATION Q4-6H PRN (Reason: shortness of breath or wheezing) Qty: 6.7 0RF albuterol sulfate 90 mcg/actuation aerosol powdr breath activated 2 inhalation INHALATION Q4H Qty: 1 0RF albuterol sulfate [Ventolin HFA] 90 mcg/actuation HFA aerosol inhaler 2 puff INHALATION Q4-6H PRN (Reason: shortness of breath or wheezing) Qty: 18 0RF ondansetron 4 mg tablet,disintegrating 4 mg PO Q6-8H PRN (Reason: nausea and vomiting) Qty: 7 0RF albuterol sulfate 90 mcg/actuation HFA aerosol inhaler See Rx Instructions .ROUTE .COMPLEX Qty: 18 0RF Rx Instructions: 1-2 puffs q4-6hr as needed for wheezing / sob albuterol sulfate 2.5 mg /3 mL (0.083 %) solution for nebulization 2.5 mg INHALATION Q4-6H Qty: 180 0RF prednisone 50 mg tablet 50 mg PO DAILY Qty: 3 0RF albuterol sulfate 90 mcg/actuation HFA aerosol inhaler 1 puff INHALATION Q4-6H PRN (Reason: shortness of breath or wheezing) Qty: 8 0RF albuterol sulfate 90 mcg/actuation HFA aerosol inhaler 2 puff INHALATION Q4-6H PRN (Reason: shortness of breath or wheezing) Qty: 18 0RF prednisone 20 mg tablet 60 mg PO DAILY Qty: 15 0RF amoxicillin-pot clavulanate [Augmentin] 875-125 mg tablet 1 tab PO BID Qty: 20 0RF albuterol sulfate 90 mcg/actuation aerosol powdr breath activated 2 puff INHALATION Q4H PRN (Reason: shortness of breath or wheezing) Qty: 1 0RF Rx Instructions: administer with spacer Referrals: Edward Daugherty MD [Primary Care Provider] - Stand Alone Forms: Patient Portal/API
[2023-02-16] MEDS: predniSONE 20 MG TABLET 40 MG PO (22:42)
[2023-02-16 23:34] LABS: Influenza A - CEPHEID Flu A NEGATIVE (NEGATIVE); Influenza B - CEPHEID Flu B NEGATIVE (NEGATIVE); Respiratory Syncytial Virus Negative (Negative)
[2023-02-16] MEDS: ALBUTEROL HFA PREPACK 1 BOX MISC (23:35)
[2023-02-16 23:42] LABS: COVID-19 CEPHEID 4-PLEX PCR Negative (Negative)
[2023-02-16 23:53] VITALS: BP 141/76; PULSE 92; RESP 18; O2SAT 98
== END 2023-02-16 23:54 | disposition home or self-care (01) ==
PROVIDERS: Emergency Provider Emergency Medicine; PCP Family Medicine
DX: J45.901 Unspecified asthma with (acute) exacerbation (principal); Z20.822 Contact with and (suspected) exposure to COVID-19
CPT/HCPCS: 0241U; 71046; 94640; 99283; J7613

== ENCOUNTER 2023-06-17 05:55 | Emergency (ER) | payer OTHER, MEDICAID, SELFPAY ==
[2023-06-17 06:02] VITALS: BP 154/83; PULSE 101; RESP 24; TEMP 36.9; O2SAT 97; BMI 18.2
[2023-06-17] MEDS: ALBUTEROL/IPRATROPIUM 3 ML AMPUL INH (06:09)
--- NOTE | 2023-06-17 06:28 | ED.ASTHMA ---
HPI - Asthma General Chief Complaint: Asthma Stated Complaint: asthma attack Time Seen by Provider: 06/17/23 06:23 Source: patient and family Mode of arrival: Ambulatory History of Present Illness HPI Narrative: 32-year-old gentleman with moderate persistent asthma typically uses Flovent 2 puffs b.i.d. and occasional albuterol for breakthrough finds that when he comes up to visit his mother who has cats to which he is allergic his asthma gets significantly worse. He is run out of his albuterol rescue inhaler as he is up visiting his mother currently. Comes in for further evaluation. He describes no recent fevers, cough, chills. Increasing difficulty breathing over the last couple of days to the point that his inhalers are no longer working. Related Data Previous Rx's Medication Instructions Recorded albuterol sulfate 90 mcg/actuation See Rx Instructions .Route 06/17/18 aerosol inhaler .COMPLEX #18 grams albuterol sulfate 90 mcg/actuation 2 puff inhalation Q4-6H PRN 07/15/18 aerosol inhaler (Ventolin HFA) shortness of breath or wheezing #6.7 grams albuterol sulfate 90 mcg/actuation 2 inhalation inhalation Q4H asthma 11/23/18 breath activated powder inhaler #1 ea albuterol sulfate 90 mcg/actuation 2 puff inhalation Q4-6H PRN 03/16/19 aerosol inhaler (Ventolin HFA) shortness of breath or wheezing #18 grams albuterol sulfate 2.5 mg/3 mL 2.5 mg (3 mL) inhalation Q4-6H 05/18/19 (0.083 %) solution for nebulization #180 mL albuterol sulfate 90 mcg/actuation 1 puff inhalation Q4-6H PRN 06/19/19 aerosol inhaler shortness of breath or wheezing #8 grams prednisone 50 mg tablet 50 mg PO DAILY #3 tabs 06/19/19 albuterol sulfate 90 mcg/actuation 2 puff inhalation Q4-6H PRN 07/29/19 aerosol inhaler shortness of breath or wheezing #18 grams prednisone 20 mg tablet 60 mg PO DAILY #15 tabs 09/13/19 ondansetron 4 mg disintegrating 4 mg PO Q6-8H PRN nausea and 10/28/19 tablet vomiting #7 tabs omeprazole 20 mg capsule,delayed 20 mg PO DAILY #90 caps 11/17/19 release amoxicillin 875 mg-potassium 1 tab PO BID #20 tabs 06/26/21 clavulanate 125 mg tablet (Augmentin) albuterol sulfate 90 mcg/actuation 2 puff inhalation Q4H PRN 09/29/21 breath activated powder inhaler shortness of breath or wheezing #1 ea prednisone 10 mg tablet See Rx Instructions .Route 02/16/23 .COMPLEX #30 tabs albuterol sulfate 90 mcg/actuation 2 puff inhalation QID PRN 06/17/23 aerosol inhaler shortness of breath or wheezing #8.5 grams prednisone 20 mg tablet 20 mg PO DAILY #20 tabs 06/17/23 Allergies Allergy/AdvReac Type Severity Reaction Status Date / Time cat dander Allergy Intermediate Verified 10/28/19 12:12 Review of Systems Review of Systems Narrative: Pertinent positive and negative findings as per HPI Patient History Medical History Asthma Gastric ulcer Sternal fracture Family History Other Family history non-contributory Social History Smoking Status: Never smoker substance use type: does not use Smoking Status: Never smoker alcohol intake frequency: holidays/special occasions only Substance Use Type: marijuana Exam Initial Vital Signs Initial Vital Signs: Vital Signs Temperature 98.4 F 06/17/23 06:02 Pulse Rate 101 H 06/17/23 06:02 Respiratory Rate 24 06/17/23 06:02 Blood Pressure 154/83 H 06/17/23 06:02 Pulse Oximetry 97 06/17/23 06:02 Oxygen Delivery Method Room Air 06/17/23 06:02 General: Healthy appearing, in no acute distress. Able to give a complete and coherent history. Well-nourished well-developed HEENT: Moist mucous membranes, normal sclera with reactive pupils, Respiratory: Prior to DuoNeb he has diffuse wheeze in all lung sharma with reduced air movement but no accessory muscle use. After DuoNeb significantly improved overall air movement with scattered wheezing in lower lung sharma Cardiac: Regular rate and rhythm no murmurs no bruits Abdomen: Soft, nontender, good bowel tones, no flank pain Skin: Warm and dry, no rashes Neurologic: Grossly neurologically intact with no obvious asymmetries or abnormalities Extremities: No trauma, well perfused Psych: Cooperative, appropriate insight and affect Course Orders Ordered: Discontinued Medications Albuterol/Ipratropium (Albuterol/Ipratropium 3 Ml Ampul) 3 ml INH NOW ONE Stop: 06/17/23 06:02 Last Admin: 06/17/23 06:09 Dose: 3 ml Documented By: ARON Vital Signs Vital signs: Vital Signs - 8 hr 06/17/23 06:02 06/17/23 06:11 Temperature 98.4 F Pulse Rate 101 H Respiratory Rate 24 Blood Pressure 154/83 H Pulse Oximetry 97 Oxygen Delivery Method Room Air Room Air MDM - Asthma MDM Narrative Medical decision making narrative: CC: Asthma exacerbation Complicating co-morbidities: cat allergies Data collected from: patient, Social determinants of health that may influence the patients condition: Visiting from out of town Differential considered: Acute asthma exacerbation, Cat allergy, upper respiratory infection Exam documented above, pertinent findings include: Significant diffuse wheeze initially, nice response to DuoNeb Discussion: 32-year-old gentleman who is asthma is typically well controlled with his Flovent at baseline needing only occasional rescue albuterol inhaler. Unfortunately he is allergic to cats is well aware of this and is up visiting his mother who has multiple cats. He is needed more of his rescue inhaler and has run out and comes in because he is having increasing difficulty breathing. Beautiful response to nebulizer treatment. He is given prescription for prednisone 20 mg daily to use while he is visiting his mother to try to avoid severe exacerbations and his albuterol MDI is refilled. At this point there is no evidence of impending respiratory distress he is responded nicely to initial treatments, no evidence infection or additional complications. Questions are answered and he is safe for discharge home Discharge Plan Departure Patient Disposition: Home Clinical Impression: Asthma with acute exacerbation Instructions: DI for Asthma -- Adult Activity Restrictions/Additional Instructions: Thank you for coming in today I am giving you a prescription for prednisone 20 mg daily while you are visiting your mother. Hopefully this will prevent further acute asthma exacerbations. Please make sure your continuing your Flovent as prescribed. Use your albuterol 2 puffs every 2-6 hours as needed for wheezing. I have also given you a prescription written for you to refill if needed. If you find that you are getting worse or develop any new symptoms, please feel free to return to the emergency department for further evaluation. Prescriptions: New prednisone 20 mg tablet 20 mg PO DAILY Qty: 20 0RF albuterol sulfate 90 mcg/actuation HFA aerosol inhaler 2 puff inhalation QID PRN (Reason: shortness of breath or wheezing) Qty: 8.5 0RF No Action omeprazole 20 mg capsule,delayed release(DR/EC) 20 mg PO DAILY Qty: 90 0RF albuterol sulfate [Ventolin HFA] 90 mcg/actuation HFA aerosol inhaler 2 puff INHALATION Q4-6H PRN (Reason: shortness of breath or wheezing) Qty: 6.7 0RF albuterol sulfate 90 mcg/actuation aerosol powdr breath activated 2 inhalation INHALATION Q4H Qty: 1 0RF albuterol sulfate [Ventolin HFA] 90 mcg/actuation HFA aerosol inhaler 2 puff INHALATION Q4-6H PRN (Reason: shortness of breath or wheezing) Qty: 18 0RF ondansetron 4 mg tablet,disintegrating 4 mg PO Q6-8H PRN (Reason: nausea and vomiting) Qty: 7 0RF prednisone 10 mg tablet See Rx Instructions .ROUTE .COMPLEX Qty: 30 0RF Rx Instructions: Day 1,2,3: 40mg PO Daily Day 4,5,6: 30mg PO Daily Day 7,8,9: 20mg PO Daily Day 10,11,12: 10mg PO Daily #30 albuterol sulfate 90 mcg/actuation HFA aerosol inhaler See Rx Instructions .ROUTE .COMPLEX Qty: 18 0RF Rx Instructions: 1-2 puffs q4-6hr as needed for wheezing / sob albuterol sulfate 2.5 mg /3 mL (0.083 %) solution for nebulization 2.5 mg INHALATION Q4-6H Qty: 180 0RF prednisone 50 mg tablet 50 mg PO DAILY Qty: 3 0RF albuterol sulfate 90 mcg/actuation HFA aerosol inhaler 1 puff INHALATION Q4-6H PRN (Reason: shortness of breath or wheezing) Qty: 8 0RF albuterol sulfate 90 mcg/actuation HFA aerosol inhaler 2 puff INHALATION Q4-6H PRN (Reason: shortness of breath or wheezing) Qty: 18 0RF prednisone 20 mg tablet 60 mg PO DAILY Qty: 15 0RF amoxicillin-pot clavulanate [Augmentin] 875-125 mg tablet 1 tab PO BID Qty: 20 0RF albuterol sulfate 90 mcg/actuation aerosol powdr breath activated 2 puff INHALATION Q4H PRN (Reason: shortness of breath or wheezing) Qty: 1 0RF Rx Instructions: administer with spacer Referrals: Edward Daugherty MD [Primary Care Provider] - Stand Alone Forms: Patient Portal/API
[2023-06-17] MEDS: ALBUTEROL HFA PREPACK 1 BOX MISC (06:45)
[2023-06-17] MEDS: predniSONE 20 MG TABLET PO (06:45)
[2023-06-17 06:59] VITALS: BP 134/75; PULSE 102; RESP 20; TEMP 36.5; O2SAT 98
== END 2023-06-17 07:00 | disposition home or self-care (01) ==
PROVIDERS: Emergency Provider Emergency Medicine; PCP Family Medicine
DX: J45.901 Unspecified asthma with (acute) exacerbation (principal)
CPT/HCPCS: 94640; 99283; A9270

== ENCOUNTER 2023-10-17 03:09 | Emergency (ER) | payer OTHER, MEDICAID, SELFPAY ==
--- NOTE | 2023-10-17 03:16 | ED_ITS ---
HPI - SOB/Dyspnea General Chief Complaint: Asthma Stated Complaint: ASTHMA Time Seen by Provider: 10/17/23 03:10 Source: patient, RN notes reviewed and old records reviewed Mode of arrival: Ambulatory Limitations: no limitations History of Present Illness HPI Narrative: 33-year-old male with history of moderate persistent asthma who has been visiting his mom who has cats. He states this seems to kick off his asthma. He is also run out of his albuterol inhaler. Patient states he feels very tight very wheezy came on quite abruptly this evening. Patient states no fevers chills cold cough or congestion recently. No passing out. No GI or urinary symptoms. No new swelling in extremities. He states this feels very similar to his typical asthma exacerbations. He states he is never had to be intubated for his asthma. He is had 1 hospitalization in the past according to the patient. States he did have some leftover steroids from prior visit but did not take any today. Denies tobacco, does use marijuana, does drink alcohol. Denies allergies to drugs. Related Data Previous Rx's Medication Instructions Recorded albuterol sulfate 90 mcg/actuation See Rx Instructions .Route 06/17/18 aerosol inhaler .COMPLEX #18 grams albuterol sulfate 90 mcg/actuation 2 puff inhalation Q4-6H PRN 07/15/18 aerosol inhaler (Ventolin HFA) shortness of breath or wheezing #6.7 grams albuterol sulfate 90 mcg/actuation 2 inhalation inhalation Q4H asthma 11/23/18 breath activated powder inhaler #1 ea albuterol sulfate 90 mcg/actuation 2 puff inhalation Q4-6H PRN 03/16/19 aerosol inhaler (Ventolin HFA) shortness of breath or wheezing #18 grams albuterol sulfate 2.5 mg/3 mL 2.5 mg (3 mL) inhalation Q4-6H 05/18/19 (0.083 %) solution for nebulization #180 mL albuterol sulfate 90 mcg/actuation 1 puff inhalation Q4-6H PRN 06/19/19 aerosol inhaler shortness of breath or wheezing #8 grams prednisone 50 mg tablet 50 mg PO DAILY #3 tabs 06/19/19 albuterol sulfate 90 mcg/actuation 2 puff inhalation Q4-6H PRN 07/29/19 aerosol inhaler shortness of breath or wheezing #18 grams prednisone 20 mg tablet 60 mg (3 x 20 mg) PO DAILY #15 tabs 09/13/19 ondansetron 4 mg disintegrating 4 mg PO Q6-8H PRN nausea and 10/28/19 tablet vomiting #7 tabs omeprazole 20 mg capsule,delayed 20 mg PO DAILY #90 caps 11/17/19 release amoxicillin 875 mg-potassium 1 tab PO BID #20 tabs 06/26/21 clavulanate 125 mg tablet (Augmentin) albuterol sulfate 90 mcg/actuation 2 puff inhalation Q4H PRN 09/29/21 breath activated powder inhaler shortness of breath or wheezing #1 ea prednisone 10 mg tablet See Rx Instructions .Route 02/16/23 .COMPLEX #30 tabs albuterol sulfate 90 mcg/actuation 2 puff inhalation QID PRN 06/17/23 aerosol inhaler shortness of breath or wheezing #8.5 grams prednisone 20 mg tablet 20 mg PO DAILY #20 tabs 06/17/23 prednisone 10 mg tablets in a dose 20 mg (2 x 10 mg) PO DAILY 5 days 10/17/23 pack #10 ea Allergies Allergy/AdvReac Type Severity Reaction Status Date / Time cat dander Allergy Intermediate Verified 10/17/23 03:22 Review of Systems Review of Systems ROS Unobtainable: All systems reviewed & are unremarkable except as noted in HPI and below Patient History Medical History Gastric ulcer Sternal fracture Asthma Family History Other Family history non-contributory Social History Smoking Status: Never smoker substance use type: does not use Smoking Status: Never smoker alcohol intake frequency: holidays/special occasions only Substance Use Type: marijuana Exam Narrative Exam Narrative: GENERAL: Alert and oriented x three, well-appearing male in moderate distress. Patient does smell like smoke. HEENT: Head normocephalic, atraumatic, EOMI, pupils reactive, face symmetric, moist mucous membranes NECK: Supple, full range of motion CARDIOVASCULAR: Regular rate and rhythm without murmurs, rubs or gallops. RESPIRATORY: Breath sounds decreased bilaterally, bilateral expiratory and inspiratory wheezes, no rales or rhonchi. Mild tachypnea. Able to speak in 5-6 words. ABDOMEN: Soft, nontender. Normoactive bowel sounds all 4 quadrants. No guarding or rebound, rigidity, no mass : No CVA tenderness EXTREMITIES: Normal range of motion, no clubbing or edema. Neurovascularly in tact NEUROLOGICAL: Cranial nerves II through XII grossly intact. Moving all extremities. Patient ambulated into the department. SKIN: Warm, dry, no petechiae, no rashes or lesions. Initial Vital Signs Initial Vital Signs: Vital Signs Temperature 98.2 F 10/17/23 03:22 Pulse Rate 100 H 10/17/23 03:22 Respiratory Rate 32 H 10/17/23 03:22 Blood Pressure 130/72 10/17/23 03:22 Pulse Oximetry 99 10/17/23 03:22 Oxygen Delivery Method Room Air 10/17/23 03:22 Course Orders Ordered: Discontinued Medications Albuterol (Albuterol 2.5 Mg/3 Ml Neb (Adult)) 10 mg INH NOW ONE Stop: 10/17/23 03:21 Last Admin: 10/17/23 03:25 Dose: 10 mg Albuterol (Albuterol Hfa Prepack) 1 box MISC DIRECTED ONE Stop: 10/17/23 03:23 Last Admin: 10/17/23 03:35 Dose: 1 box Albuterol/Ipratropium (Albuterol/Ipratropium 3 Ml Ampul) 3 ml INH NOW ONE Stop: 10/17/23 03:13 Last Admin: 10/17/23 03:24 Dose: 3 ml Prednisone (Prednisone 20 Mg Tablet) 60 mg PO NOW ONE Stop: 10/17/23 03:16 Last Admin: 10/17/23 03:22 Dose: 60 mg Vital Signs Vital signs: Vital Signs - 8 hr 10/17/23 03:22 10/17/23 03:26 10/17/23 04:00 Temperature 98.2 F 97.3 F L Pulse Rate 100 H 110 H Respiratory Rate 32 H 22 Blood Pressure 130/72 123/74 Pulse Oximetry 99 98 Oxygen Delivery Method Room Air Room Air Room Air Fraction of Inspired Oxygen 98 MDM - SOB/Dyspnea MDM Narrative Medical decision making narrative: 33-year-old male with history of asthma states he has been visiting his mom and she has cats which exacerbate his asthma he is also out of his albuterol inhaler. Patient presents he has expiratory wheeze, some mild tachypnea able to speak almost full sentences. DuoNeb and oral prednisone were given patient was re-evaluated. Patient is clear on re-evaluation he feels significantly better, no tachypnea speaks in full sentences. Discharge Plan Departure Patient Disposition: Home Clinical Impression: Asthma exacerbation Activity Restrictions/Additional Instructions: Included a prescription for prednisone, can take 20 mg daily x5 days. Prescription sent to [facility] in [place] You can use albuterol 2-4 puffs every 4 hours as needed. Use with the spacer. Please return if you are having worsening symptoms. Prescriptions: New prednisone 10 mg tablets,dose pack 20 mg PO DAILY 5 Days Qty: 10 0RF No Action omeprazole 20 mg capsule,delayed release(DR/EC) 20 mg PO DAILY Qty: 90 0RF albuterol sulfate [Ventolin HFA] 90 mcg/actuation HFA aerosol inhaler 2 puff INHALATION Q4-6H PRN (Reason: shortness of breath or wheezing) Qty: 6.7 0RF albuterol sulfate 90 mcg/actuation aerosol powdr breath activated 2 inhalation INHALATION Q4H Qty: 1 0RF albuterol sulfate [Ventolin HFA] 90 mcg/actuation HFA aerosol inhaler 2 puff INHALATION Q4-6H PRN (Reason: shortness of breath or wheezing) Qty: 18 0RF ondansetron 4 mg tablet,disintegrating 4 mg PO Q6-8H PRN (Reason: nausea and vomiting) Qty: 7 0RF prednisone 10 mg tablet See Rx Instructions .ROUTE .COMPLEX Qty: 30 0RF Rx Instructions: Day 1,2,3: 40mg PO Daily Day 4,5,6: 30mg PO Daily Day 7,8,9: 20mg PO Daily Day 10,11,12: 10mg PO Daily #30 prednisone 20 mg tablet 20 mg PO DAILY Qty: 20 0RF albuterol sulfate 90 mcg/actuation HFA aerosol inhaler 2 puff inhalation QID PRN (Reason: shortness of breath or wheezing) Qty: 8.5 0RF albuterol sulfate 90 mcg/actuation HFA aerosol inhaler See Rx Instructions .ROUTE .COMPLEX Qty: 18 0RF Rx Instructions: 1-2 puffs q4-6hr as needed for wheezing / sob albuterol sulfate 2.5 mg /3 mL (0.083 %) solution for nebulization 2.5 mg INHALATION Q4-6H Qty: 180 0RF prednisone 50 mg tablet 50 mg PO DAILY Qty: 3 0RF albuterol sulfate 90 mcg/actuation HFA aerosol inhaler 1 puff INHALATION Q4-6H PRN (Reason: shortness of breath or wheezing) Qty: 8 0RF albuterol sulfate 90 mcg/actuation HFA aerosol inhaler 2 puff INHALATION Q4-6H PRN (Reason: shortness of breath or wheezing) Qty: 18 0RF prednisone 20 mg tablet 60 mg PO DAILY Qty: 15 0RF amoxicillin-pot clavulanate [Augmentin] 875-125 mg tablet 1 tab PO BID Qty: 20 0RF albuterol sulfate 90 mcg/actuation aerosol powdr breath activated 2 puff INHALATION Q4H PRN (Reason: shortness of breath or wheezing) Qty: 1 0RF Rx Instructions: administer with spacer Referrals: Edward Daugherty MD [Primary Care Provider] - Stand Alone Forms: Patient Portal/API
[2023-10-17 03:22] VITALS: BP 130/72; PULSE 100; RESP 32; TEMP 36.8; O2SAT 99; BMI 18.6
[2023-10-17] MEDS: predniSONE 20 MG TABLET 60 MG PO (03:22)
[2023-10-17] MEDS: ALBUTEROL/IPRATROPIUM 3 ML AMPUL INH (03:24)
[2023-10-17] MEDS: ALBUTEROL 2.5 MG/3 ML NEB (ADULT) 10 MG INH (03:25)
[2023-10-17] MEDS: ALBUTEROL HFA PREPACK 1 BOX MISC (03:35)
[2023-10-17 04:00] VITALS: BP 123/74; PULSE 110; RESP 22; TEMP 36.3; O2SAT 98
== END 2023-10-17 04:00 | disposition home or self-care (01) ==
PROVIDERS: Emergency Provider Emergency Medicine; PCP Family Medicine
DX: J45.901 Unspecified asthma with (acute) exacerbation (principal)
CPT/HCPCS: 94640; 99283; J7613

== ENCOUNTER 2023-11-08 23:19 | Emergency (ER) | payer OTHER, MEDICAID, SELFPAY ==
[2023-11-08 23:24] VITALS: BP 140/88; PULSE 104; RESP 25; TEMP 36.6; O2SAT 95; BMI 21.5
[2023-11-08] MEDS: ALBUTEROL/IPRATROPIUM 3 ML AMPUL INH (23:26)
[2023-11-08 23:35] VITALS: PULSE 87; O2SAT 99
[2023-11-09] VITALS: PULSE 82; O2SAT 97
--- NOTE | 2023-11-09 00:18 | ED_ITS ---
HPI - Asthma General Chief Complaint: Asthma Stated Complaint: asthma attack Time Seen by Provider: 11/08/23 23:31 Source: patient Mode of arrival: Ambulatory History of Present Illness HPI Narrative: 33-year-old gentleman with a history of mild intermittent asthma who visits his mother regularly and typically has an asthma exacerbation secondary to her cats. He has been seen in the emergency department multiple times for the same. He is currently home for [place], has used the last of his MDI and is experiencing increasing wheeze. He currently is between primary care providers but has not appointment scheduled with a new provider sometime before the new year. He is had no recent fevers, cough, chills. He is able to speak in full sentences but is complaining of increasing wheezing to the point that he is having difficulty sleeping. Related Data Previous Rx's Medication Instructions Recorded albuterol sulfate 90 mcg/actuation See Rx Instructions .Route 06/17/18 aerosol inhaler .COMPLEX #18 grams albuterol sulfate 90 mcg/actuation 2 puff inhalation Q4-6H PRN 07/15/18 aerosol inhaler (Ventolin HFA) shortness of breath or wheezing #6.7 grams albuterol sulfate 90 mcg/actuation 2 inhalation inhalation Q4H asthma 11/23/18 breath activated powder inhaler #1 ea albuterol sulfate 90 mcg/actuation 2 puff inhalation Q4-6H PRN 03/16/19 aerosol inhaler (Ventolin HFA) shortness of breath or wheezing #18 grams albuterol sulfate 2.5 mg/3 mL 2.5 mg (3 mL) inhalation Q4-6H 05/18/19 (0.083 %) solution for nebulization #180 mL albuterol sulfate 90 mcg/actuation 1 puff inhalation Q4-6H PRN 06/19/19 aerosol inhaler shortness of breath or wheezing #8 grams prednisone 50 mg tablet 50 mg PO DAILY #3 tabs 06/19/19 albuterol sulfate 90 mcg/actuation 2 puff inhalation Q4-6H PRN 07/29/19 aerosol inhaler shortness of breath or wheezing #18 grams prednisone 20 mg tablet 60 mg (3 x 20 mg) PO DAILY #15 tabs 09/13/19 ondansetron 4 mg disintegrating 4 mg PO Q6-8H PRN nausea and 12/13/19 tablet vomiting #7 tabs omeprazole 20 mg capsule,delayed 20 mg PO DAILY #90 caps 11/17/19 release amoxicillin 875 mg-potassium 1 tab PO BID #20 tabs 06/26/21 clavulanate 125 mg tablet (Augmentin) albuterol sulfate 90 mcg/actuation 2 puff inhalation Q4H PRN 09/29/21 breath activated powder inhaler shortness of breath or wheezing #1 ea prednisone 10 mg tablet See Rx Instructions .Route 02/16/23 .COMPLEX #30 tabs albuterol sulfate 90 mcg/actuation 2 puff inhalation QID PRN 06/17/23 aerosol inhaler shortness of breath or wheezing #8.5 grams prednisone 20 mg tablet 20 mg PO DAILY #20 tabs 06/17/23 albuterol sulfate 90 mcg/actuation 2 puff inhalation Q6H PRN 11/09/23 aerosol inhaler shortness of breath or wheezing #8.5 grams fluticasone propionate 220 1 puff inhalation BID #12 grams 11/09/23 mcg/actuation HFA aerosol inhaler (Flovent HFA) prednisone 20 mg tablet 20 mg PO DAILY #30 tabs 11/09/23 Allergies Allergy/AdvReac Type Severity Reaction Status Date / Time cat dander Allergy Intermediate Verified 10/17/23 03:22 Review of Systems Review of Systems Narrative: Pertinent positive and negative findings as per HPI Patient History Medical History Gastric ulcer Sternal fracture Asthma Family History Other Family history non-contributory Social History Smoking Status: Never smoker substance use type: does not use Smoking Status: Never smoker alcohol intake frequency: holidays/special occasions only Substance Use Type: marijuana Exam Initial Vital Signs Initial Vital Signs: Vital Signs Temperature 97.8 F 11/08/23 23:24 Pulse Rate 104 H 11/08/23 23:24 Respiratory Rate 25 H 11/08/23 23:24 Blood Pressure 140/88 11/08/23 23:24 Pulse Oximetry 95 11/08/23 23:24 Oxygen Delivery Method Room Air 11/08/23 23:24 General: Healthy appearing, in no acute distress. Able to give a complete and coherent history. Well-nourished well-developed HEENT: Moist mucous membranes, normal sclera with reactive pupils, Respiratory: Lungs with scattered wheeze after nebulized treatment Cardiac: Regular rate and rhythm no murmurs no bruits Abdomen: Soft, nontender, good bowel tones, no flank pain Skin: Warm and dry, no rashes Neurologic: Grossly neurologically intact with no obvious asymmetries or abnormalities Extremities: No trauma, well perfused Psych: Cooperative, appropriate insight and affect Course Orders Ordered: Discontinued Medications Albuterol (Albuterol Hfa Prepack) 1 box MISC DIRECTED ONE Stop: 11/09/23 00:24 Last Admin: 11/09/23 00:29 Dose: 1 box Documented By: INDIRA Albuterol/Ipratropium (Albuterol/Ipratropium 3 Ml Ampul) 3 ml INH NOW ONE Stop: 11/08/23 23:25 Last Admin: 11/08/23 23:26 Dose: 3 ml Documented By: GARCIA Vital Signs Vital signs: Vital Signs - 8 hr 11/08/23 23:24 11/08/23 23:35 11/09/23 00:00 Temperature 97.8 F Pulse Rate 104 H 87 82 Respiratory Rate 25 H Blood Pressure 140/88 Pulse Oximetry 95 99 97 Oxygen Delivery Method Room Air 11/09/23 00:25 Temperature Pulse Rate 60 Respiratory Rate 22 Blood Pressure 140/88 Pulse Oximetry 99 Oxygen Delivery Method Room Air MDM - Asthma MDM Narrative Medical decision making narrative: CC: Asthma exacerbation Complicating co-morbidities: No primary care provider, running out of medications, cat allergies with asthma exacerbations when he comes to visit his mother. Data collected from: patient Differential considered: Acute asthma exacerbation, viral syndrome, pneumothorax Exam documented above, pertinent findings include: Mild wheezing significantly improved after nebulized albuterol. No rhonchi and no severe respiratory distress Discussion: 33-year-old gentleman with asthma, acute exacerbation secondary to staying with his mom and her cats. He is currently out of medications and between primary care providers. He is given albuterol metered-dose inhaler with spacer to use. He is also given refills for an albuterol inhaler that can be filled once he returns to [facility] before he is able to establish care with a primary care doctor. I have suggested that he try leaving some of his medication here as he seems to end up in the emergency department each time he comes to visit his mother. At this point he is in no acute respiratory distress, the inhaler has worked nicely, medications will be refilled and he is safe for discharge Discharge Plan Departure Patient Disposition: Home Clinical Impression: Allergy to cats Asthma exacerbation Qualifiers: Asthma severity: mild Asthma persistence: intermittent Qualified Code(s): J45.21 - Mild intermittent asthma with (acute) exacerbation Instructions: DI for Asthma -- Adult Activity Restrictions/Additional Instructions: I am sorry that you had an acute exacerbation of your asthma. As we discussed, I would recommend leaving some of your medications here as your mother's cats always seemed to set off your asthma. I will give you refills to make sure that you are not without inhalers. I do like your plan to follow up with the primary care doctor. Please continue your Flovent daily, when you are visiting here I would recommend an antihistamine. You can use albuterol 2 puffs every 6 hours as needed. If you find that you are getting worse or develop any new symptoms, please feel free to return to the emergency department for further evaluation. Prescriptions: New fluticasone propionate [Flovent HFA] 220 mcg/actuation HFA aerosol inhaler 1 puff inhalation BID Qty: 12 3RF albuterol sulfate 90 mcg/actuation HFA aerosol inhaler 2 puff inhalation Q6H PRN (Reason: shortness of breath or wheezing) Qty: 8.5 3RF prednisone 20 mg tablet 20 mg PO DAILY Qty: 30 0RF No Action omeprazole 20 mg capsule,delayed release(DR/EC) 20 mg PO DAILY Qty: 90 0RF albuterol sulfate [Ventolin HFA] 90 mcg/actuation HFA aerosol inhaler 2 puff INHALATION Q4-6H PRN (Reason: shortness of breath or wheezing) Qty: 6.7 0RF albuterol sulfate 90 mcg/actuation aerosol powdr breath activated 2 inhalation INHALATION Q4H Qty: 1 0RF albuterol sulfate [Ventolin HFA] 90 mcg/actuation HFA aerosol inhaler 2 puff INHALATION Q4-6H PRN (Reason: shortness of breath or wheezing) Qty: 18 0RF ondansetron 4 mg tablet,disintegrating 4 mg PO Q6-8H PRN (Reason: nausea and vomiting) Qty: 7 0RF prednisone 10 mg tablet See Rx Instructions .ROUTE .COMPLEX Qty: 30 0RF Rx Instructions: Day 1,2,3: 40mg PO Daily Day 4,5,6: 30mg PO Daily Day 7,8,9: 20mg PO Daily Day 10,11,12: 10mg PO Daily #30 prednisone 20 mg tablet 20 mg PO DAILY Qty: 20 0RF albuterol sulfate 90 mcg/actuation HFA aerosol inhaler 2 puff inhalation QID PRN (Reason: shortness of breath or wheezing) Qty: 8.5 0RF albuterol sulfate 90 mcg/actuation HFA aerosol inhaler See Rx Instructions .ROUTE .COMPLEX Qty: 18 0RF Rx Instructions: 1-2 puffs q4-6hr as needed for wheezing / sob albuterol sulfate 2.5 mg /3 mL (0.083 %) solution for nebulization 2.5 mg INHALATION Q4-6H Qty: 180 0RF prednisone 50 mg tablet 50 mg PO DAILY Qty: 3 0RF albuterol sulfate 90 mcg/actuation HFA aerosol inhaler 1 puff INHALATION Q4-6H PRN (Reason: shortness of breath or wheezing) Qty: 8 0RF albuterol sulfate 90 mcg/actuation HFA aerosol inhaler 2 puff INHALATION Q4-6H PRN (Reason: shortness of breath or wheezing) Qty: 18 0RF prednisone 20 mg tablet 60 mg PO DAILY Qty: 15 0RF amoxicillin-pot clavulanate [Augmentin] 875-125 mg tablet 1 tab PO BID Qty: 20 0RF albuterol sulfate 90 mcg/actuation aerosol powdr breath activated 2 puff INHALATION Q4H PRN (Reason: shortness of breath or wheezing) Qty: 1 0RF Rx Instructions: administer with spacer Referrals: Edward Daugherty MD [Primary Care Provider] - Stand Alone Forms: Patient Portal/API
[2023-11-09 00:25] VITALS: BP 140/88; PULSE 60; RESP 22; O2SAT 99
[2023-11-09] MEDS: ALBUTEROL HFA PREPACK 1 BOX MISC (00:29)
== END 2023-11-09 00:36 | disposition home or self-care (01) ==
PROVIDERS: Emergency Provider Emergency Medicine; PCP Family Medicine
DX: J45.21 Mild intermittent asthma with (acute) exacerbation (principal); J30.81 Allergic rhinitis due to animal (cat) (dog) hair and dander
CPT/HCPCS: 99283

== ENCOUNTER 2023-12-08 20:56 | Emergency (ER) | payer OTHER, MEDICAID, SELFPAY ==
[2023-12-08 21:01] VITALS: BP 117/96; PULSE 104; O2SAT 93
[2023-12-08 21:04] VITALS: BP 117/96; PULSE 110; RESP 28; TEMP 36.6; O2SAT 93
--- NOTE | 2023-12-08 21:06 | ED.GENADULT ---
HPI - General Adult General Chief complaint: Asthma Stated complaint: states asthma attack Time Seen by Provider: 12/08/23 21:01 Source: patient Mode of arrival: Ambulatory Limitations: no limitations History of Present Illness HPI narrative: 33-year-old male. Has a history of asthma. Does have an albuterol inhaler prescription but he lost his inhaler and he states that the pharmacy will not refill his new inhaler for another 2 weeks because of insurance reasons. He thinks that it was maybe an exposure to a cat that caused his symptoms today. Has had cough and shortness of breath. He did have prednisone at home and he took a dose this prior to arrival but states that his symptoms have not improved. No fevers. He also states he has a dental infection. He did have an appointment with a dentist that he waited 3 weeks in order to get into see. When he went to them they told him that he had an infection but he needed to contact his primary doctor for a prescription for antibiotics. He does not have a primary care doctor. Related Data Previous Rx's Medication Instructions Recorded albuterol sulfate 90 mcg/actuation See Rx Instructions .Route 06/17/18 aerosol inhaler .COMPLEX #18 grams albuterol sulfate 90 mcg/actuation 2 puff inhalation Q4-6H PRN 07/15/18 aerosol inhaler (Ventolin HFA) shortness of breath or wheezing #6.7 grams albuterol sulfate 90 mcg/actuation 2 inhalation inhalation Q4H asthma 11/23/18 breath activated powder inhaler #1 ea albuterol sulfate 90 mcg/actuation 2 puff inhalation Q4-6H PRN 03/16/19 aerosol inhaler (Ventolin HFA) shortness of breath or wheezing #18 grams albuterol sulfate 2.5 mg/3 mL 2.5 mg (3 mL) inhalation Q4-6H 05/18/19 (0.083 %) solution for nebulization #180 mL albuterol sulfate 90 mcg/actuation 1 puff inhalation Q4-6H PRN 06/19/19 aerosol inhaler shortness of breath or wheezing #8 grams prednisone 50 mg tablet 50 mg PO DAILY #3 tabs 06/19/19 albuterol sulfate 90 mcg/actuation 2 puff inhalation Q4-6H PRN 07/29/19 aerosol inhaler shortness of breath or wheezing #18 grams prednisone 20 mg tablet 60 mg (3 x 20 mg) PO DAILY #15 tabs 09/13/19 ondansetron 4 mg disintegrating 4 mg PO Q6-8H PRN nausea and 10/28/19 tablet vomiting #7 tabs omeprazole 20 mg capsule,delayed 20 mg PO DAILY #90 caps 11/17/19 release amoxicillin 875 mg-potassium 1 tab PO BID #20 tabs 06/26/21 clavulanate 125 mg tablet (Augmentin) albuterol sulfate 90 mcg/actuation 2 puff inhalation Q4H PRN 09/29/21 breath activated powder inhaler shortness of breath or wheezing #1 ea prednisone 10 mg tablet See Rx Instructions .Route 02/16/23 .COMPLEX #30 tabs albuterol sulfate 90 mcg/actuation 2 puff inhalation QID PRN 06/17/23 aerosol inhaler shortness of breath or wheezing #8.5 grams prednisone 20 mg tablet 20 mg PO DAILY #20 tabs 06/17/23 albuterol sulfate 90 mcg/actuation 2 puff inhalation Q6H PRN 11/09/23 aerosol inhaler shortness of breath or wheezing #8.5 grams fluticasone propionate 220 1 puff inhalation BID #12 grams 11/09/23 mcg/actuation HFA aerosol inhaler (Flovent HFA) prednisone 20 mg tablet 20 mg PO DAILY #30 tabs 11/09/23 penicillin V potassium 500 mg 500 mg PO QID 7 days #28 tabs 12/08/23 tablet Allergies Allergy/AdvReac Type Severity Reaction Status Date / Time cat dander Allergy Intermediate Verified 10/17/23 03:22 Review of Systems Constitutional Constitutional: Reports system reviewed and no additional complaints, except as documented ENT Ears, Nose, Mouth, and Throat: Reports system reviewed and no additional complaints, except as documented Respiratory Respiratory: Reports system reviewed and no additional complaints, except as documented Integumentary/Breasts Skin/Breast: Reports system reviewed and no additional complaints, except as documented Patient History Medical History Gastric ulcer Sternal fracture Asthma Family History Other Family history non-contributory Social History (Reviewed 12/08/23 @ 22:28 by VALENTINE Leal Smoking Status: Never smoker substance use type: does not use Smoking Status: Never smoker alcohol intake frequency: holidays/special occasions only Substance Use Type: marijuana Exam Initial Vital Signs Initial Vital Signs: Vital Signs Pulse Rate 104 H 12/08/23 21:01 Blood Pressure 117/96 H 12/08/23 21:01 Pulse Oximetry 93 12/08/23 21:01 HENMT Head: normal to inspection and normocephalic HENMT Other: Red and irritated gums specifically left lower region. No abscess Resp Effort & Inspection: cough and tachypneic Auscultation: clear to auscultation bilaterally Skin General: no rashes or lesions noted Neuro General: patient alert, patient awake and moves all extremities Extrem General: capillary refill normal Course Orders Ordered: Discontinued Medications Albuterol (Albuterol Hfa Prepack) 1 box MISC DIRECTED ONE Stop: 12/08/23 21:07 Last Admin: 12/08/23 21:12 Dose: 1 box Documented By: Albuterol/Ipratropium (Albuterol/Ipratropium 3 Ml Ampul) 3 ml INH NOW ONE Stop: 12/08/23 21:07 Last Admin: 12/08/23 21:11 Dose: 3 ml Documented By: Vital Signs Vital signs: Vital Signs - 8 hr 12/08/23 21:01 12/08/23 21:01 12/08/23 21:04 Temperature 98 F Pulse Rate 104 H 110 H Respiratory Rate 28 H Blood Pressure 117/96 H 117/96 H Pulse Oximetry 93 93 Oxygen Delivery Method Room Air Oxygen Flow Rate 98 12/08/23 21:30 12/08/23 21:30 Temperature Pulse Rate 94 H Respiratory Rate Blood Pressure 122/79 Pulse Oximetry 94 Oxygen Delivery Method Oxygen Flow Rate Medical Decision Making MDM Narrative Medical decision making narrative: By the time I evaluated the patient he was shelter through his nebulizer. He no longer had any wheezing. He stated that he was feeling much better. After the nebulizer his lungs were clear. Low suspicion for pneumonia. No indication for antibiotics for his respiratory issues. He does have physical exam findings that would be consistent for a dental infection. No drainable abscess noted on the exam today. I will provide a prescription for him of antibiotics for his dental issues. Will discharge patient home. He was given a prepack of an albuterol inhaler. He does have a spacer at home. He was given return precautions. He expressed understanding and agreement. Discharge Plan Departure Patient Disposition: Home Clinical Impression: Asthma exacerbation, Dental infection Instructions: DI for Asthma -- Adult Activity Restrictions/Additional Instructions: Take the antibiotics as directed. Use the albuterol inhaler as needed as well. It is important that you make contact with the primary doctor. You can contact [phone] during business hours. Return to the emergency department for new symptoms. Prescriptions: New penicillin V potassium 500 mg tablet 500 mg PO QID 7 Days Qty: 28 0RF No Action omeprazole 20 mg capsule,delayed release(DR/EC) 20 mg PO DAILY Qty: 90 0RF albuterol sulfate [Ventolin HFA] 90 mcg/actuation HFA aerosol inhaler 2 puff INHALATION Q4-6H PRN (Reason: shortness of breath or wheezing) Qty: 6.7 0RF albuterol sulfate 90 mcg/actuation aerosol powdr breath activated 2 inhalation INHALATION Q4H Qty: 1 0RF albuterol sulfate [Ventolin HFA] 90 mcg/actuation HFA aerosol inhaler 2 puff INHALATION Q4-6H PRN (Reason: shortness of breath or wheezing) Qty: 18 0RF ondansetron 4 mg tablet,disintegrating 4 mg PO Q6-8H PRN (Reason: nausea and vomiting) Qty: 7 0RF prednisone 10 mg tablet See Rx Instructions .ROUTE .COMPLEX Qty: 30 0RF Rx Instructions: Day 1,2,3: 40mg PO Daily Day 4,5,6: 30mg PO Daily Day 7,8,9: 20mg PO Daily Day 10,11,12: 10mg PO Daily #30 prednisone 20 mg tablet 20 mg PO DAILY Qty: 20 0RF albuterol sulfate 90 mcg/actuation HFA aerosol inhaler 2 puff inhalation QID PRN (Reason: shortness of breath or wheezing) Qty: 8.5 0RF fluticasone propionate [Flovent HFA] 220 mcg/actuation HFA aerosol inhaler 1 puff inhalation BID Qty: 12 3RF albuterol sulfate 90 mcg/actuation HFA aerosol inhaler 2 puff inhalation Q6H PRN (Reason: shortness of breath or wheezing) Qty: 8.5 3RF prednisone 20 mg tablet 20 mg PO DAILY Qty: 30 0RF albuterol sulfate 90 mcg/actuation HFA aerosol inhaler See Rx Instructions .ROUTE .COMPLEX Qty: 18 0RF Rx Instructions: 1-2 puffs q4-6hr as needed for wheezing / sob albuterol sulfate 2.5 mg /3 mL (0.083 %) solution for nebulization 2.5 mg INHALATION Q4-6H Qty: 180 0RF prednisone 50 mg tablet 50 mg PO DAILY Qty: 3 0RF albuterol sulfate 90 mcg/actuation HFA aerosol inhaler 1 puff INHALATION Q4-6H PRN (Reason: shortness of breath or wheezing) Qty: 8 0RF albuterol sulfate 90 mcg/actuation HFA aerosol inhaler 2 puff INHALATION Q4-6H PRN (Reason: shortness of breath or wheezing) Qty: 18 0RF prednisone 20 mg tablet 60 mg PO DAILY Qty: 15 0RF amoxicillin-pot clavulanate [Augmentin] 875-125 mg tablet 1 tab PO BID Qty: 20 0RF albuterol sulfate 90 mcg/actuation aerosol powdr breath activated 2 puff INHALATION Q4H PRN (Reason: shortness of breath or wheezing) Qty: 1 0RF Rx Instructions: administer with spacer Referrals: Edward Daugherty MD [Primary Care Provider] - Stand Alone Forms: Patient Portal/API
[2023-12-08] MEDS: ALBUTEROL/IPRATROPIUM 3 ML AMPUL INH (21:11)
[2023-12-08] MEDS: ALBUTEROL HFA PREPACK 1 BOX MISC (21:12)
[2023-12-08 21:30] VITALS: BP 122/79; PULSE 94; O2SAT 94
== END 2023-12-08 21:44 | disposition home or self-care (01) ==
PROVIDERS: Emergency Provider Emergency Medicine; PCP Family Medicine
DX: J45.901 Unspecified asthma with (acute) exacerbation (principal); K04.7 Periapical abscess without sinus
CPT/HCPCS: 94640; 99283

== ENCOUNTER 2024-03-29 23:39 | Emergency (ER) | payer OTHER, MEDICAID, SELFPAY ==
[2024-03-29 23:43] VITALS: BP 129/94; PULSE 94; RESP 19; O2SAT 96
[2024-03-29 23:45] VITALS: BP 129/94; PULSE 97; RESP 22; TEMP 36.3; O2SAT 94
[2024-03-29] MEDS: ALBUTEROL/IPRATROPIUM 3 ML AMPUL INH (23:46)
[2024-03-30] VITALS: PULSE 73; RESP 20; O2SAT 96
--- NOTE | 2024-03-30 | PC.NURSE ---
Mild expiratory wheeze, much improved after duoneb.
--- NOTE | 2024-03-30 00:31 | ED_ITS ---
HPI - Asthma General Chief Complaint: Asthma Stated Complaint: asthma attack Time Seen by Provider: 03/30/24 00:31 Source: patient Mode of arrival: Ambulatory History of Present Illness HPI Narrative: 33-year-old gentleman with a history of mild intermittent asthma seen multiple times in the emergency department with the acute asthma exacerbations. [place] and every time he comes to visit his mother, he runs out of his inhalers because he is allergic to her cats. Presents with similar complaints today. States he has been here about a week. He does still have his Flovent. On arrival to the emergency department he is given a DuoNeb treatment with significant improvement in symptoms. He does not describe any recent fevers, chills, productive cough, nausea vomiting, chest pain, palpitations. Related Data Home Medications Medication Instructions Recorded Confirmed albuterol sulfate 90 mcg/actuation 2 puff inhalation Q6H PRN wheezing 03/29/24 03/29/24 aerosol inhaler Previous Rx's Medication Instructions Recorded albuterol sulfate 90 mcg/actuation 2 puff inhalation Q6H PRN 03/30/24 aerosol inhaler shortness of breath or wheezing #8.5 grams Allergies Allergy/AdvReac Type Severity Reaction Status Date / Time cat dander Allergy Intermediate Verified 03/29/24 23:47 Review of Systems Review of Systems Narrative: Pertinent positive and negative findings as per HPI Patient History Medical History Gastric ulcer Sternal fracture Asthma Family History Other Family history non-contributory Social History Smoking Status: Never smoker substance use type: does not use Smoking Status: Never smoker alcohol intake frequency: other Substance Use Type: does not use Exam Initial Vital Signs Initial Vital Signs: Vital Signs Pulse Rate 94 H 03/29/24 23:43 Respiratory Rate 19 03/29/24 23:43 Blood Pressure 129/94 H 03/29/24 23:43 Pulse Oximetry 96 03/29/24 23:43 Oxygen Delivery Method Room Air 03/29/24 23:43 General: Chronically ill-appearing, significant decline from my most recent interaction with him in October. He is pale, disheveled, weight loss, ?picking? sores over his face and arms HEENT: Moist mucous membranes, normal sclera with reactive pupils, Respiratory: Lungs with mild scattered wheezing after nebulized treatment. No rhonchi. No crackles. No respiratory distress or accessory muscle use Cardiac: Regular rate and rhythm no murmurs no bruits Skin: Pale, picking lesions Neurologic: Appears slightly intoxicated with no localizing neurologic findings Psych: Cooperative, appropriate with fluent speech patterns Course Orders Ordered: Discontinued Medications Albuterol/Ipratropium (Albuterol/Ipratropium 3 Ml Ampul) 3 ml INH NOW ONE Stop: 03/29/24 23:43 Last Admin: 03/29/24 23:46 Dose: 3 ml Documented By: MR Vital Signs Vital signs: Vital Signs - 8 hr 03/29/24 23:43 03/29/24 23:43 03/29/24 23:45 Temperature 97.4 F L Pulse Rate 94 H 97 H Respiratory Rate 19 22 Blood Pressure 129/94 H 129/94 H Pulse Oximetry 96 94 Oxygen Delivery Method Room Air Room Air 03/30/24 00:00 Temperature Pulse Rate 73 Respiratory Rate 20 Blood Pressure Pulse Oximetry 96 Oxygen Delivery Method Room Air MDM - Asthma MDM Narrative Medical decision making narrative: CC: Acute asthma exacerbation Complicating co-morbidities: No primary care physician, repeat ER visits for albuterol refills, Data collected from: patient Medical records reviewed: Multiple prior ER notes about every 3-4 months when he comes to visit his mother are reviewed Differential considered: Cat allergy, mild intermittent asthma, reaction to inhaled recreational medications Exam documented above, pertinent findings include: Mild wheezing however his overall appearance has had a significant decline in the last number of months now with picking lesions, almost nodding off during our discussion, weight loss, poor skin tone Treatments: DuoNeb treatment Discussion: 33-year-old gentleman with intermittent asthma. Ran out of his inhalers having mild wheezing. Inhalers refilled. I suspect that he is using recreational drugs including likely meth and narcotics based on his physical exam and behaviors today. This was not addressed directly with him. Prescription for albuterol inhaler is given. He is safe for discharge Discharge Plan Departure Patient Disposition: Home Clinical Impression: Asthma with acute exacerbation Qualifiers: Asthma severity: mild Asthma persistence: intermittent Qualified Code(s): J45.21 - Mild intermittent asthma with (acute) exacerbation Instructions: DI for Asthma -- Adult Activity Restrictions/Additional Instructions: Thank you for coming in today I have refilled your albuterol with a prescription going to [facility]. There is an additional refill left on that prescription Please make sure that you are so using your Flovent, you said you did not need refills on this. It seems that each time you come up to [place] you have an acute asthma exacerbation. You might consider taking 1 of the [id number] antihistamine such as Claritin, Martha or Zyrtec to try and prevent some of the cat sensitivities. Also a good idea to make sure that you have adequate amounts of albuterol when you do come up. Avoiding smoking of all kind and all substances is also going to be helpful for your overall lung health. If you find that you are getting worse or develop any new symptoms, please feel free to return to the emergency department for further evaluation. Prescriptions: New albuterol sulfate 90 mcg/actuation HFA aerosol inhaler 2 puff inhalation Q6H PRN (Reason: shortness of breath or wheezing) Qty: 8.5 1RF No Action albuterol sulfate 90 mcg/actuation HFA aerosol inhaler 2 puff inhalation Q6H PRN (Reason: wheezing) Referrals: Edward Daugherty MD [Primary Care Provider] - Stand Alone Forms: Patient Portal/API
== END 2024-03-30 00:46 | disposition home or self-care (01) ==
PROVIDERS: Emergency Provider Emergency Medicine; PCP Family Medicine
DX: J45.21 Mild intermittent asthma with (acute) exacerbation (principal)
CPT/HCPCS: 94640; 99283; 99284

== ENCOUNTER 2024-04-26 22:54 | Emergency (ER) | payer OTHER, MEDICAID, SELFPAY ==
[2024-04-26 23:08] VITALS: BP 135/92; PULSE 95; RESP 18; TEMP 36.5; O2SAT 95
[2024-04-26 23:15] VITALS: PULSE 105; RESP 24; O2SAT 98
[2024-04-26] MEDS: ALBUTEROL 2.5 MG/3 ML NEB (ADULT) 5 MG INH (23:15)
--- NOTE | 2024-04-26 23:23 | ED.ASTHMA ---
HPI - Asthma General Chief Complaint: Asthma Stated Complaint: asthma attack Time Seen by Provider: 04/26/24 23:10 Source: patient Mode of arrival: Ambulatory History of Present Illness HPI Narrative: Patient is a 33-year-old male with a history of asthma. Has an albuterol inhaler at home but has been out of it for the past couple days. He does not have any refills. He states that throughout the day today he has had on and off issues with wheezing. No fevers. Is having a cough. Related Data Home Medications Medication Instructions Recorded Confirmed albuterol sulfate 90 mcg/actuation 2 puff inhalation Q6H PRN wheezing 03/29/24 03/29/24 aerosol inhaler Previous Rx's Medication Instructions Recorded albuterol sulfate 90 mcg/actuation 2 puff inhalation Q6H PRN 03/30/24 aerosol inhaler shortness of breath or wheezing #8.5 grams albuterol sulfate 90 mcg/actuation 2 puff inhalation Q4-6H PRN 04/26/24 aerosol inhaler shortness of breath or wheezing #8.5 grams Allergies Allergy/AdvReac Type Severity Reaction Status Date / Time cat dander Allergy Intermediate Verified 03/29/24 23:47 Review of Systems Constitutional Constitutional: Reports system reviewed and no additional complaints, except as documented Cardiovascular Cardiovascular: Reports system reviewed and no additional complaints, except as documented Respiratory Respiratory: Reports system reviewed and no additional complaints, except as documented Integumentary/Breasts Skin/Breast: Reports system reviewed and no additional complaints, except as documented Neurologic Neurologic: Reports system reviewed and no additional complaints, except as documented Patient History Medical History Gastric ulcer Sternal fracture Asthma Family History Other Family history non-contributory Social History Smoking Status: Never smoker substance use type: does not use Smoking Status: Never smoker alcohol intake frequency: other Substance Use Type: does not use Exam Initial Vital Signs Initial Vital Signs: Vital Signs Temperature 97.7 F 04/26/24 23:08 Pulse Rate 95 H 04/26/24 23:08 Respiratory Rate 18 04/26/24 23:08 Blood Pressure 135/92 H 04/26/24 23:08 Pulse Oximetry 95 04/26/24 23:08 Oxygen Delivery Method Room Air 04/26/24 23:08 HENMT Head: normal to inspection and normocephalic Resp Effort & Inspection: not labored, no retractions and tachypneic Auscultation: wheezes Cardio Rate: regular rate Skin General: no rashes or lesions noted Neuro General: patient alert and patient awake Course Orders Ordered: Discontinued Medications Albuterol (Albuterol 2.5 Mg/3 Ml Neb (Adult)) 5 mg INH NOW ONE Stop: 04/26/24 23:19 Last Admin: 04/26/24 23:15 Dose: 5 mg Documented By: JOANNA Albuterol (Albuterol Hfa Prepack) 1 box MISC DIRECTED ONE Stop: 04/26/24 23:42 Last Admin: 04/26/24 23:48 Dose: 1 box Documented By: CHARLY Vital Signs Vital signs: Vital Signs - 8 hr 04/26/24 23:08 04/26/24 23:15 04/27/24 00:00 Temperature 97.7 F Pulse Rate 95 H 105 H 95 H Respiratory Rate 18 24 20 Blood Pressure 135/92 H 132/79 Pulse Oximetry 95 98 95 Oxygen Delivery Method Room Air Room Air Room Air Oxygen Flow Rate 0 Fraction of Inspired Oxygen 21 MDM - Asthma MDM Narrative Medical decision making narrative: Wheezing prior to administration albuterol nebulizer but this greatly improved afterwards. He stated he was feeling much better. He did not think that he would benefit from another treatment. He was afebrile. Low suspicion for pneumonia. No indication for radiologic studies. He was given a prepack of an albuterol inhaler and a prescription was sent to the pharmacy of his choice. Patient stated that he felt well enough to go home. He was given return precautions and follow-up instructions. He expressed understanding and agreement. Discharge Plan Departure Patient Disposition: Home Clinical Impression: Asthma exacerbation Instructions: DI for Asthma -- Adult Activity Restrictions/Additional Instructions: Use the albuterol inhaler with the spacer that you have at home. Return to the emergency department for new symptoms. Prescriptions: New albuterol sulfate 90 mcg/actuation HFA aerosol inhaler 2 puff inhalation Q4-6H PRN (Reason: shortness of breath or wheezing) Qty: 8.5 2RF No Action albuterol sulfate 90 mcg/actuation HFA aerosol inhaler 2 puff inhalation Q6H PRN (Reason: wheezing) albuterol sulfate 90 mcg/actuation HFA aerosol inhaler 2 puff inhalation Q6H PRN (Reason: shortness of breath or wheezing) Qty: 8.5 1RF Referrals: Edward Daugherty MD [Primary Care Provider] - Stand Alone Forms: Patient Portal/API
[2024-04-26] MEDS: ALBUTEROL HFA PREPACK 1 BOX MISC (23:48)
[2024-04-27] VITALS: BP 132/79; PULSE 95; RESP 20; O2SAT 95
== END 2024-04-27 00:01 | disposition home or self-care (01) ==
PROVIDERS: Emergency Provider Emergency Medicine; PCP Family Medicine
DX: J45.901 Unspecified asthma with (acute) exacerbation (principal)
CPT/HCPCS: 99283; J7613

== ENCOUNTER 2024-07-07 20:48 | Emergency (ER) | payer OTHER, MEDICAID, SELFPAY ==
[2024-07-07 20:53] VITALS: BP 126/97; PULSE 127; O2SAT 95
[2024-07-07 20:55] VITALS: BP 126/97; PULSE 115; RESP 22; TEMP 36.6; O2SAT 93; BMI 34.4
[2024-07-07 21:00] VITALS: PULSE 115; O2SAT 92
[2024-07-07] MEDS: ALBUTEROL/IPRATROPIUM 3 ML AMPUL INH (21:08)
[2024-07-07] MEDS: ALBUTEROL HFA PREPACK 1 BOX MISC (21:09)
--- NOTE | 2024-07-07 21:12 | ED_ITS ---
HPI - General Adult General Chief complaint: Shortness of Breath/Dyspnea Stated complaint: asthma attack Time Seen by Provider: 07/07/24 20:56 Source: patient Mode of arrival: Ambulatory History of Present Illness HPI narrative: Patient is a 33-year-old male. Has a history of asthma. Ran out of his albuterol inhaler. Was working with some insulation today. Develop shortness of breath and wheezing. Also having a cough. Related Data Home Medications Medication Instructions Recorded Confirmed albuterol sulfate 90 mcg/actuation 2 puff inhalation Q6H PRN wheezing 03/29/24 03/29/24 aerosol inhaler Previous Rx's Medication Instructions Recorded albuterol sulfate 90 mcg/actuation 2 puff inhalation Q6H PRN 03/30/24 aerosol inhaler shortness of breath or wheezing #8.5 grams albuterol sulfate 90 mcg/actuation 2 puff inhalation Q4-6H PRN 04/26/24 aerosol inhaler shortness of breath or wheezing #8.5 grams albuterol sulfate 90 mcg/actuation 2 puff inhalation Q6H PRN 07/07/24 aerosol inhaler (Ventolin HFA) shortness of breath or wheezing #8.5 grams Allergies Allergy/AdvReac Type Severity Reaction Status Date / Time cat dander Allergy Intermediate Verified 03/29/24 23:47 Review of Systems Constitutional Constitutional: Reports system reviewed and no additional complaints, except as documented Cardiovascular Cardiovascular: Reports system reviewed and no additional complaints, except as documented Respiratory Respiratory: Reports system reviewed and no additional complaints, except as documented Patient History Medical History Gastric ulcer Sternal fracture Asthma Family History Other Family history non-contributory Social History Smoking Status: Never smoker substance use type: does not use Smoking Status: Never smoker alcohol intake frequency: other Substance Use Type: does not use Exam Initial Vital Signs Initial Vital Signs: Vital Signs Temperature 97.9 F 07/07/24 20:55 Pulse Rate 115 H 07/07/24 20:55 Respiratory Rate 22 07/07/24 20:55 Blood Pressure 126/97 H 07/07/24 20:55 Pulse Oximetry 93 07/07/24 20:55 Oxygen Delivery Method Room Air 07/07/24 20:55 Resp Effort & Inspection: cough, not labored and tachypneic Auscultation: wheezes Cardio Rate: regular rate Rhythm: regular rhythm Course Orders Ordered: ED Orders 07/07/24 20:58 RT Consult Eval and Treat NOW Discontinued Medications Albuterol (Albuterol Hfa Prepack) 1 box MISC DIRECTED ONE Stop: 07/07/24 21:05 Last Admin: 07/07/24 21:09 Dose: 1 box Documented By: Albuterol/Ipratropium (Albuterol/Ipratropium 3 Ml Ampul) 3 ml INH NOW ONE Stop: 07/07/24 21:05 Last Admin: 07/07/24 21:08 Dose: 3 ml Documented By: Vital Signs Vital signs: Vital Signs - 8 hr 07/07/24 20:55 Temperature 97.9 F Pulse Rate 115 H Respiratory Rate 22 Blood Pressure 126/97 H Pulse Oximetry 93 Oxygen Delivery Method Room Air Medical Decision Making [facility] Narrative Medical decision making narrative: After 1 nebulizer treatment patient has complete resolution of symptoms. He feels much better. No cough. Low suspicion for pneumonia. No indication for antibiotics. Was given a prepack of inhaler. Has a spacer at home. I will refill his albuterol. He was given return precautions. Discharge Plan Departure Patient Disposition: Home Clinical Impression: Asthma exacerbation Instructions: DI for Asthma -- Adult Activity Restrictions/Additional Instructions: It is important that you may contact with the primary care doctor for refills of your medications and further long-term treatment of your asthma. Prescriptions: New albuterol sulfate [Ventolin HFA] 90 mcg/actuation HFA aerosol inhaler 2 puff inhalation Q6H PRN (Reason: shortness of breath or wheezing) Qty: 8.5 2RF No Action albuterol sulfate 90 mcg/actuation HFA aerosol inhaler 2 puff inhalation Q6H PRN (Reason: wheezing) albuterol sulfate 90 mcg/actuation HFA aerosol inhaler 2 puff inhalation Q6H PRN (Reason: shortness of breath or wheezing) Qty: 8.5 1RF albuterol sulfate 90 mcg/actuation HFA aerosol inhaler 2 puff inhalation Q4-6H PRN (Reason: shortness of breath or wheezing) Qty: 8.5 2RF Referrals: Miscellaneous,Doctor, MD [Primary Care Provider] - Stand Alone Forms: Patient Portal/API
[2024-07-07 21:30] VITALS: PULSE 122; O2SAT 93
== END 2024-07-07 21:54 | disposition home or self-care (01) ==
PROVIDERS: Emergency Provider Emergency Medicine
DX: J45.901 Unspecified asthma with (acute) exacerbation (principal)
CPT/HCPCS: 99283

== ENCOUNTER 2024-09-10 19:50 | Emergency (ER) | payer OTHER, MEDICAID, SELFPAY ==
[2024-09-10] VITALS (7 sets, daily range): BP systolic 112–143; BP diastolic 73–81; PULSE 79–112; RESP 20–26; TEMP 37.2; O2SAT 92–98; BMI 22.9
[2024-09-10] MEDS: ALBUTEROL/IPRATROPIUM 3 ML AMPUL INH (20:17)
--- NOTE | 2024-09-10 20:23 | PC.NURSE ---
audible exp wheezing noted after exposure to cats pt ran out of his inhaler, pt has been seen here before for same
--- NOTE | 2024-09-10 20:43 | ED.SOB ---
HPI - SOB/Dyspnea General Chief Complaint: Shortness of Breath/Dyspnea Stated Complaint: Asthma attack Time Seen by Provider: 09/10/24 20:10 Source: patient Mode of arrival: Family Vehicle Limitations: no limitations History of Present Illness HPI Narrative: 34-year-old male with history of asthma 1st diagnosed teenage years, ran out of his inhaler, has had 1 week duration of dry cough, increased shortness of breath after he ran out of his inhaler medication. No fevers or chills. Some chest discomfort but only with coughing. Leg swelling. No known exposure to persons known to have recent COVID or influenza illnesses. No allergies or allergic reactions, itching, hives, swelling of lips or face or tongue. Related Data Home Medications Medication Instructions Recorded Confirmed albuterol sulfate 90 mcg/actuation 2 puff inhalation Q6H PRN wheezing 03/29/24 03/29/24 aerosol inhaler Previous Rx's Medication Instructions Recorded albuterol sulfate 90 mcg/actuation 2 puff inhalation Q6H PRN 03/30/24 aerosol inhaler shortness of breath or wheezing #8.5 grams albuterol sulfate 90 mcg/actuation 2 puff inhalation Q4-6H PRN 04/26/24 aerosol inhaler shortness of breath or wheezing #8.5 grams albuterol sulfate 90 mcg/actuation 2 puff inhalation Q6H PRN 07/07/24 aerosol inhaler (Ventolin HFA) shortness of breath or wheezing #8.5 grams albuterol sulfate 90 mcg/actuation 2 puff inhalation Q6H PRN 09/10/24 aerosol inhaler shortness of breath or wheezing #8.5 grams prednisone 20 mg tablet 40 mg (2 x 20 mg) PO DAILY 5 days 09/10/24 #10 tabs Allergies Allergy/AdvReac Type Severity Reaction Status Date / Time cat dander Allergy Intermediate Verified 03/29/24 23:47 Review of Systems Review of Systems Narrative: See HPI Patient History Medical History Gastric ulcer Sternal fracture Asthma Family History Other Family history non-contributory Social History Smoking Status: Never smoker substance use type: does not use Smoking Status: Never smoker alcohol intake frequency: other Substance Use Type: does not use Exam Narrative Exam Narrative: GENERAL: Well-developed patient, in mild distress. HEAD: Atraumatic. Normocephalic. EYES: Pupils equal round and reactive. Extraocular motions intact. No scleral icterus. No injection or drainage. ENT: Nose without bleeding, purulent drainage. Throat without erythema, tonsillar hypertrophy or exudate. Airway patent. NECK: Trachea midline. Non tender CARDIOVASCULAR: Regular rate and rhythm without murmurs, gallops, or rubs. RESPIRATORY: Speaks in full sentences, wheeze at end expiration on my auscultation after breathing treatment given by RT. no crackles. No retractions intercostal or suprasternal. GASTROINTESTINAL: Abdomen soft, non-tender, nondistended. EXTREMITIES: No edema or joint tenderness. No clubbing fingers BACK: Nontender without deformity or crepitance. No flank tenderness. NEURO: AOx3. Motor functions grossly normal SKIN: No rash or erythema of visible areas Initial Vital Signs Initial Vital Signs: Vital Signs Temperature 98.9 F 09/10/24 19:55 Pulse Rate 112 H 09/10/24 19:55 Respiratory Rate 26 H 09/10/24 19:55 Blood Pressure 143/81 H 09/10/24 19:55 Pulse Oximetry 93 09/10/24 19:55 Oxygen Delivery Method Room Air 09/10/24 19:55 Course Orders Ordered: Discontinued Medications Albuterol (Albuterol 2.5 Mg/3 Ml Neb (Adult)) 2.5 mg INH NOW ONE Stop: 09/10/24 20:11 Albuterol/Ipratropium (Albuterol/Ipratropium 3 Ml Ampul) 3 ml INH NOW ONE Stop: 09/10/24 20:09 Last Admin: 09/10/24 20:17 Dose: 3 ml Documented By: SHAUNA Prednisone (Prednisone 20 Mg Tablet) 60 mg PO NOW ONE Stop: 09/10/24 20:44 Last Admin: 09/10/24 20:48 Dose: 60 mg Documented By: SHAN Vital Signs Vital signs: Vital Signs - 8 hr 09/10/24 19:55 09/10/24 20:20 Temperature 98.9 F Pulse Rate 112 H 111 H Respiratory Rate 26 H 20 Blood Pressure 143/81 H Pulse Oximetry 93 98 Oxygen Delivery Method Room Air Room Air Fraction of Inspired Oxygen 21 MDM - SOB/Dyspnea MDM Narrative Medical decision making narrative: 34-year-old male with history of asthma, one-week duration dry cough, ran out of inhaler yesterday, increased shortness of breath today. Wheeze on examination after SVN. No oxygen requirement, no respiratory distress. COVID/flu swab declined. Oral prednisone 60mg. Refill of albuterol anticipated. Chest x-ray negative. We will discharge patient on further oral steroid pulse prednisone. Refill of albuterol. Close follow up with PCP early this next week after the weekend advised. Return precautions discussed. Discharged home, stable, improved Discharge Plan Departure Patient Disposition: Home Clinical Impression: Upper respiratory infection, Asthma exacerbation Instructions: DI for Asthma -- Adult Activity Restrictions/Additional Instructions: History of asthma, one-week duration cough, ran out of inhaler yesterday, increased shortness of breath. Some wheeze on examination after breathing treatment given by respiratory therapy. No oxygen requirement however. No respiratory distress. Prednisone steroid given. Refill of inhaler. Prednisone steroid pulse for the next few days. Recheck symptoms early next week with your regular doctor. Return to this/nearest emergency department for any change worsening symptoms or any concerns prior Prescriptions: New prednisone 20 mg tablet 40 mg PO DAILY 5 Days Qty: 10 0RF albuterol sulfate 90 mcg/actuation HFA aerosol inhaler 2 puff inhalation Q6H PRN (Reason: shortness of breath or wheezing) Qty: 8.5 0RF No Action albuterol sulfate 90 mcg/actuation HFA aerosol inhaler 2 puff inhalation Q6H PRN (Reason: wheezing) albuterol sulfate 90 mcg/actuation HFA aerosol inhaler 2 puff inhalation Q6H PRN (Reason: shortness of breath or wheezing) Qty: 8.5 1RF albuterol sulfate [Ventolin HFA] 90 mcg/actuation HFA aerosol inhaler 2 puff inhalation Q6H PRN (Reason: shortness of breath or wheezing) Qty: 8.5 2RF albuterol sulfate 90 mcg/actuation HFA aerosol inhaler 2 puff inhalation Q4-6H PRN (Reason: shortness of breath or wheezing) Qty: 8.5 2RF Referrals: Miscellaneous,Doctor, MD [Primary Care Provider] - Stand Alone Forms: Patient Portal/API
[2024-09-10] MEDS: predniSONE 20 MG TABLET 60 MG PO (20:48)
--- NOTE | 2024-09-10 21:22 | DI.RAD.S_ITS ---
PROCEDURE: XR CHEST 2V INDICATIONS: cough, SOB TECHNIQUE: 2 views of the chest were acquired. COMPARISON: [facility], CR, XR CHEST 2V, 02/16/2023, 22:18. FINDINGS: Surgical changes and devices: None. Lungs and pleura: Lungs are clear. No pleural effusions or pneumothorax. Mediastinum: Mediastinal contours are normal. Heart size is normal. Bones and chest wall: No suspicious bony abnormalities. Soft tissues appear unremarkable. IMPRESSION: No acute pulmonary process. Dictated by: Maxine Machado M.D. on 09/10/2024 at 22:10 Approved by: Maxine Machado M.D. on 09/10/2024 at 22:10
== END 2024-09-10 22:55 | disposition home or self-care (01) ==
PROVIDERS: Emergency Provider Emergency Medicine
DX: J06.9 Acute upper respiratory infection, unspecified (principal); J45.901 Unspecified asthma with (acute) exacerbation; R07.9 Chest pain, unspecified
CPT/HCPCS: 71046; 94640; 99283

== ENCOUNTER 2024-10-01 10:19 | Emergency (ER) | payer OTHER, MEDICAID, SELFPAY ==
[2024-10-01] VITALS (22 sets, daily range): BP systolic 100–194; BP diastolic 58–98; PULSE 98–118; RESP 13–50; TEMP 36.6; O2SAT 51–99
--- NOTE | 2024-10-01 10:24 | DI.RAD.S_ITS ---
PROCEDURE: XR CHEST 1V INDICATIONS: Shortness of breath TECHNIQUE: One view of the chest was acquired. COMPARISON: [facility], CR, XR CHEST 2V, 09/10/2024, 21:21. FINDINGS: Surgical changes and devices: None. Lungs and pleura: Lungs are clear. No pleural effusions or pneumothorax. Mediastinum: Mediastinal contours appear normal. Heart size is normal. Bones and chest wall: No suspicious bony lesions. Overlying soft tissues appear unremarkable. IMPRESSION: No acute cardiopulmonary abnormality is seen. Approved by: Devyn Velásquez M.D. on 10/01/2024 at 10:07
[2024-10-01] MEDS: MAGNESIUM SULFATE 2 GM/50 ML PIGGYBACK IV (10:28)
--- NOTE | 2024-10-01 10:28 | ED_ITS ---
HPI - General Adult General Chief complaint: Shortness of Breath/Dyspnea Stated complaint: asthma attack Time Seen by Provider: 10/01/24 10:23 Source: patient Mode of arrival: Ambulatory Limitations: no limitations History of Present Illness HPI narrative: Patient is a 34-year-old male. Arrives in severe respiratory distress. Has a history of asthma. We are also able to ascertain that he does smoke fentanyl but he reports he did not do that this morning. He states he has been ?sick? for approximately 3 weeks. He felt like things were actually getting better but then started to get worse a couple days ago. He states he was allergic to cats. He stated his mother's house last night who has a cat. Woke up this morning unable to take a deep breath. Patient arrived diaphoretic, tachypneic, decreased breath sounds bilateral, hypoxic into the 60s. Initially unable to obtain any other history from the patient given his presenting state. Related Data Home Medications Medication Instructions Recorded Confirmed albuterol sulfate 90 mcg/actuation 2 puff inhalation Q6H PRN wheezing 03/29/24 03/29/24 aerosol inhaler Previous Rx's Medication Instructions Recorded albuterol sulfate 90 mcg/actuation 2 puff inhalation Q6H PRN 03/30/24 aerosol inhaler shortness of breath or wheezing #8.5 grams albuterol sulfate 90 mcg/actuation 2 puff inhalation Q4-6H PRN 04/26/24 aerosol inhaler shortness of breath or wheezing #8.5 grams albuterol sulfate 90 mcg/actuation 2 puff inhalation Q6H PRN 07/07/24 aerosol inhaler (Ventolin HFA) shortness of breath or wheezing #8.5 grams albuterol sulfate 90 mcg/actuation 2 puff inhalation Q6H PRN 09/10/24 aerosol inhaler shortness of breath or wheezing #8.5 grams albuterol sulfate 90 mcg/actuation 2 puff inhalation Q6H PRN 10/01/24 aerosol inhaler shortness of breath or wheezing #8.5 grams prednisone 20 mg tablet 20 mg PO DAILY 5 days #5 tabs 10/01/24 Allergies Allergy/AdvReac Type Severity Reaction Status Date / Time cat dander Allergy Intermediate Verified 03/29/24 23:47 Review of Systems Review of Systems Narrative: See HPI Patient History Medical History Gastric ulcer Sternal fracture Asthma Family History Other Family history non-contributory Social History Smoking Status: Never smoker substance use type: does not use Smoking Status: Never smoker alcohol intake frequency: other Substance Use Type: does not use Exam Initial Vital Signs Initial Vital Signs: Vital Signs Temperature 98 F 10/01/24 10:19 Pulse Rate 107 H 10/01/24 10:19 Respiratory Rate 50 H 10/01/24 10:19 Blood Pressure 194/98 H 10/01/24 10:19 Pulse Oximetry 51 L 10/01/24 10:19 Oxygen Delivery Method Room Air 10/01/24 10:19 Const General: acute distress, in distress, anxious, diaphoretic and ill appearing HENMT Head: normal to inspection and normocephalic Resp Effort & Inspection: cough, labored, respiratory distress, tachypneic and uses accessory muscles Auscultation: diminished lung sounds and wheezes Cardio Rate: tachycardic Rhythm: regular rhythm GI Inspection: normal to inspection Skin Other: Diaphoretic Neuro General: patient alert and patient awake Extrem General: No edema Psych Other: Very anxious Course Orders Ordered: ED Orders 10/01/24 10:24 XR chest 1V Stat 10/01/24 10:26 Complete Blood Count AUTO DIFF Stat Comprehensive Metabolic Panel Stat Lipase Stat Magnesium Stat Discontinued Medications Albuterol (Albuterol 2.5 Mg/3 Ml Neb (Adult)) 20 mg INH NOW ONE Stop: 10/01/24 10:24 Last Admin: 10/01/24 10:31 Dose: 20 mg Documented By: PASQUALE Albuterol/Ipratropium (Albuterol/Ipratropium 3 Ml Ampul) 3 ml INH NOW ONE Stop: 10/01/24 12:59 Last Admin: 10/01/24 13:10 Dose: 3 ml Documented By: PASQUALEF Epinephrine HCl (Epinephrine 1 Mg/Ml) 0.5 mg IM NOW ONE Stop: 10/01/24 10:24 Last Admin: 10/01/24 10:29 Dose: 0.5 mg Documented By: GOOD Magnesium Sulfate (Magnesium Sulfate) 2 gm in 50 mls @ 25 mls/hr IV NOW ONE Stop: 10/01/24 12:22 Last Infusion: 10/01/24 11:18 Dose: Infused Documented By: VOLODYMYR Co-signed By: MICHAEL Admin: 10/01/24 10:28 Dose: 50 mls/hr Documented By: GOOD Co-signed By: CLAY Methylprednisolone (Methylprednisolone 125 Mg/2 Ml Vial) 125 mg IV NOW ONE Stop: 10/01/24 10:24 Last Admin: 10/01/24 10:31 Dose: 125 mg Documented By: SPF Vital Signs Vital signs: Vital Signs - 8 hr 10/01/24 10:19 10/01/24 10:22 10/01/24 10:32 Temperature 98 F Pulse Rate 107 H 111 H Respiratory Rate 50 H 44 H 40 H Blood Pressure 194/98 H Pulse Oximetry 51 L 97 99 Oxygen Delivery Method Room Air Non -Rebreather Aerosol Mask Oxygen Flow Rate 15 8 Fraction of Inspired Oxygen 52 10/01/24 10:35 10/01/24 10:40 10/01/24 10:40 Temperature Pulse Rate 113 H 108 H Respiratory Rate 25 H 33 H Blood Pressure 139/84 Pulse Oximetry 99 98 Oxygen Delivery Method Humidification Non -Rebreather Humidification Non -Rebreather Oxygen Flow Rate 15 15 Fraction of Inspired Oxygen 10/01/24 10:45 10/01/24 10:45 10/01/24 11:00 Temperature Pulse Rate 100 H Respiratory Rate 28 H Blood Pressure 134/70 131/74 Pulse Oximetry 97 Oxygen Delivery Method Humidification Non -Rebreather Oxygen Flow Rate 15 Fraction of Inspired Oxygen 10/01/24 11:00 10/01/24 11:15 10/01/24 11:15 Temperature Pulse Rate 100 H 117 H Respiratory Rate 18 17 Blood Pressure 125/69 Pulse Oximetry 95 97 Oxygen Delivery Method Non -Rebreather Aerosol Mask Oxygen Flow Rate 15 7 Fraction of Inspired Oxygen 10/01/24 11:30 10/01/24 11:30 10/01/24 11:45 Temperature Pulse Rate 106 H Respiratory Rate 14 Blood Pressure 129/66 120/69 Pulse Oximetry 94 Oxygen Delivery Method Aerosol Mask Oxygen Flow Rate 7 Fraction of Inspired Oxygen 10/01/24 11:45 10/01/24 12:00 10/01/24 12:00 Temperature Pulse Rate 118 H 108 H Respiratory Rate 15 15 Blood Pressure 109/59 L Pulse Oximetry 92 92 Oxygen Delivery Method Nasal Cannula Oxygen Flow Rate 2 2 Fraction of Inspired Oxygen 10/01/24 12:15 10/01/24 12:15 10/01/24 12:30 Temperature Pulse Rate 103 H Respiratory Rate Blood Pressure 115/58 L 112/62 Pulse Oximetry 90 L Oxygen Delivery Method Nasal Cannula Oxygen Flow Rate 2 Fraction of Inspired Oxygen 10/01/24 12:30 10/01/24 12:45 10/01/24 12:45 Temperature Pulse Rate 104 H 101 H Respiratory Rate 14 13 Blood Pressure 115/65 Pulse Oximetry 92 91 Oxygen Delivery Method Nasal Cannula Nasal Cannula Oxygen Flow Rate 2 2 Fraction of Inspired Oxygen 10/01/24 13:00 10/01/24 13:00 10/01/24 13:12 Temperature Pulse Rate 104 H 116 H Respiratory Rate 18 Blood Pressure 116/65 Pulse Oximetry 92 94 Oxygen Delivery Method Nasal Cannula Nasal Cannula Oxygen Flow Rate 2 2 Fraction of Inspired Oxygen 10/01/24 13:15 10/01/24 13:15 10/01/24 13:30 Temperature Pulse Rate 105 H Respiratory Rate Blood Pressure 100/64 112/68 Pulse Oximetry 95 Oxygen Delivery Method Nasal Cannula Oxygen Flow Rate 2 Fraction of Inspired Oxygen 10/01/24 13:30 10/01/24 13:45 10/01/24 13:45 Temperature Pulse Rate 104 H 98 H Respiratory Rate 14 15 Blood Pressure 114/67 Pulse Oximetry 91 93 Oxygen Delivery Method Nasal Cannula Room Air Oxygen Flow Rate 2 Fraction of Inspired Oxygen 10/01/24 14:00 10/01/24 14:00 10/01/24 14:15 Temperature Pulse Rate 101 H Respiratory Rate 20 Blood Pressure 118/71 115/59 L Pulse Oximetry 96 Oxygen Delivery Method Oxygen Flow Rate Fraction of Inspired Oxygen 10/01/24 14:30 10/01/24 14:30 Temperature Pulse Rate 101 H Respiratory Rate 16 Blood Pressure 113/62 Pulse Oximetry 93 Oxygen Delivery Method Room Air Oxygen Flow Rate Fraction of Inspired Oxygen Medical Decision Making Lab Data Lab results reviewed: Yes I reviewed the patient's lab results. 10/01/24 10:26 10/01/24 10:26 Labs: Lab Results 10/01/24 Range/Units 10:26 WBC 20.5 H (4.5-11.0) X10^3/uL RBC 4.94 (4.5-5.9) X10^6/uL Hgb 14.5 (13.5-17.5) g/dL Hct 44.4 (41-53) % MCV 89.9 (80-100) fL MCH 29.2 (26-34) PG MCHC 32.5 (30-36) % RDW 13.6 (11.6-14.8) % Plt Count 356 (150-400) X10^3/uL Neut % (Auto) 32.2 L (50-75) % Lymph % (Auto) 41.0 H (25-40) % Wilkes % (Auto) 13.4 (3-14) % Eos % (Auto) 12.8 H (2-4) % Baso % (Auto) 0.6 (0-2) % Neut # (Auto) 6600 (9222-4923) /uL Lymph # (Auto) 8400 H (0911-4701) /uL Wilkes # (Auto) 2800 H (0-900) /uL Eos # (Auto) 2600 H (0-450) /uL Baso # (Auto) 100 (0-100) /uL Sodium 142 (137-145) mmol/L Potassium 4.1 (3.4-5.1) mmol/L Chloride 104 (98-107) mmol/L Carbon Dioxide 21 L (22-32) mmol/L BUN 17 (9-20) mg/dL Creatinine 1.02 (0.66-1.25) mg/dL Estimated GFR > 60 (>60) mL/min BUN/Creatinine Ratio 16.7 (6-22) Glucose 130 H (70-100) mg/dL Calcium 9.1 (8.4-10.2) mg/dL Magnesium 2.2 (1.6-2.3) mg/dL Total Bilirubin 0.6 (0.2-1.3) mg/dL AST 30 (17-59) IU/L ALT 27 (<50) IU/L Alkaline Phosphatase 80 (38-126) U/L Total Protein 7.4 (6.3-8.2) g/dL Albumin 4.3 (3.5-5.0) g/dL Globulin 3.1 (1.7-4.1) g/dL Albumin/Globulin Ratio 1.4 (1.0-2.8) Lipase 43 (23-300) U/L Imaging Data Chest x-ray: Radiologist's Impression: PROCEDURE: XR CHEST 1V INDICATIONS: Shortness of breath TECHNIQUE: One view of the chest was acquired. COMPARISON: [facility], CR, XR CHEST 2V, 09/10/2024, 21:21. FINDINGS: Surgical changes and devices: None. Lungs and pleura: Lungs are clear. No pleural effusions or pneumothorax. Mediastinum: Mediastinal contours appear normal. Heart size is normal. Bones and chest wall: No suspicious bony lesions. Overlying soft tissues appear unremarkable. IMPRESSION: No acute cardiopulmonary abnormality is seen. MDM Narrative Medical decision making narrative: Patient arrived in extreme respiratory distress. Hypoxic into the 60s. Tachypneic. Tachycardic. Diaphoretic. Initially difficult to obtain history. Was given continuous nebulizer, epinephrine, steroids and magnesium. Patient did seem to improve afterwards. He was unable to talk to him more. He does have a history of asthma. States that he was allergic to cats. Spent the night at his mom's house who has cats. Woke up this morning not being able to breathe. He tried to use his albuterol inhaler however they were all empty. After breathing treatments he feels much better. Is no longer diaphoretic. Still somewhat tachycardic but I suspect that this is from the albuterol. He denies chest pain. He did require oxygen for a period of time. He started to have more wheezing afterwards and was given another nebulizer any states this improved his breathing even more. He was able to ambulate. Was not hypoxic. States he felt well enough to go home. No indication for antibiotics. Chest x- ray shows no signs of pneumonia. I will refill his albuterol. Will put him on steroids for the next couple days. He was given return precautions and follow- up instructions. He expressed understanding and agreement with plan. Critical Care Time Critical Care Time Critical Care Time: Yes Total Critical Care Time: 35 Attestation: The high probability of a clinically significant, sudden or life threatening deterioration of the [respiratory] system(s) required my full and direct attention, intervention and personal management. The aggregate critical care time was [35] minutes. This time is in addition to time spent performing reported procedures but includes the following: [x] Data Review and interpretation [x] Patient assessment and monitoring of vital signs x Documentation [x] Medication orders and management Discharge Plan Departure Patient Disposition: Home Clinical Impression: Asthma exacerbation Instructions: DI for Asthma -- Adult Activity Restrictions/Additional Instructions: I do recommend that you use the albuterol every 4 hours for the rest of today. I also recommend that you take the steroids as directed. Your next dose will be tomorrow 10/02/2024. Return to the emergency department for new or worsening symptoms. Prescriptions: New prednisone 20 mg tablet 20 mg PO DAILY 5 Days Qty: 5 0RF albuterol sulfate 90 mcg/actuation HFA aerosol inhaler 2 puff inhalation Q6H PRN (Reason: shortness of breath or wheezing) Qty: 8.5 2RF No Action albuterol sulfate 90 mcg/actuation HFA aerosol inhaler 2 puff inhalation Q6H PRN (Reason: wheezing) albuterol sulfate 90 mcg/actuation HFA aerosol inhaler 2 puff inhalation Q6H PRN (Reason: shortness of breath or wheezing) Qty: 8.5 1RF albuterol sulfate [Ventolin HFA] 90 mcg/actuation HFA aerosol inhaler 2 puff inhalation Q6H PRN (Reason: shortness of breath or wheezing) Qty: 8.5 2RF albuterol sulfate 90 mcg/actuation HFA aerosol inhaler 2 puff inhalation Q6H PRN (Reason: shortness of breath or wheezing) Qty: 8.5 0RF albuterol sulfate 90 mcg/actuation HFA aerosol inhaler 2 puff inhalation Q4-6H PRN (Reason: shortness of breath or wheezing) Qty: 8.5 2RF Referrals: Miscellaneous,Doctor, MD [Primary Care Provider] - Stand Alone Forms: Patient Portal/API/Survey
[2024-10-01] MEDS: EPINEPHrine 1 MG/ML 0.5 MG IM (10:29)
[2024-10-01] MEDS: ALBUTEROL 2.5 MG/3 ML NEB (ADULT) 20 MG INH (10:31)
[2024-10-01] MEDS: methylPREDNISolone 125 MG/2 ML VIAL IV (10:31)
[2024-10-01 10:33] LABS: Add Manual Diff / Slide Review NO; Basophils Absolute Auto 100 /uL (0-100); Basophils Percent Auto 0.6 % (0-2); Eosinophils Absolute Auto 2600 /uL (0-450); Eosinophils Percent Auto 12.8 % (2-4); Hematocrit 44.4 % (41-53); Hemoglobin 14.5 g/dL (13.5-17.5); Lymphocytes Absolute Auto 8400 /uL (1100-4500); Mean Corpuscular HGB Conc 32.5 % (30-36); Mean Corpuscular Hemoglobin 29.2 PG (26-34); Mean Corpuscular Volume 89.9 fL (80-100); Monocytes Absolute Auto 2800 /uL (0-900); Monocytes Percent Auto 13.4 % (3-14); Neutrophils Absolute Auto 6600 /uL (1500-7000); Neutrophils Percent Auto 32.2 % (50-75); Platelet Count 356 X10^3/uL (150-400); Red Blood Cell Count 4.94 X10^6/uL (4.5-5.9); Red Cell Distribution Width 13.6 % (11.6-14.8); White Blood Cell Count 20.5 X10^3/uL (4.5-11.0)
[2024-10-01 10:52] LABS: Alanine Aminotransferase 27 IU/L (<50); Albumin 4.3 g/dL (3.5-5.0); Albumin Globulin Ratio 1.4 (1.0-2.8); Alkaline Phosphatase 80 U/L (38-126); Aspartate Aminotransferase 30 IU/L (17-59); BUN Creatinine Ratio 16.7 (6-22); Bilirubin Total 0.6 mg/dL (0.2-1.3); Blood Urea Nitrogen 17 mg/dL (9-20); Calcium 9.1 mg/dL (8.4-10.2); Carbon Dioxide 21 mmol/L (22-32); Chloride 104 mmol/L (98-107); Estimated Glomerular Filt Rate > 60 mL/min (>60); Globulin 3.1 g/dL (1.7-4.1); Glucose 130 mg/dL (70-100); HEMOLYSIS < 15 (0-50); Lipase 43 U/L (23-300); Magnesium 2.2 mg/dL (1.6-2.3); Potassium 4.1 mmol/L (3.4-5.1); Sodium 142 mmol/L (137-145); Total Protein 7.4 g/dL (6.3-8.2)
--- NOTE | 2024-10-01 12:01 | PC.NURSE ---
continuos neb was removed and patient desatted to 88% on RA, placed the patient on 2L NC to maintain sats above 90%
[2024-10-01] MEDS: ALBUTEROL/IPRATROPIUM 3 ML AMPUL INH (13:10)
== END 2024-10-01 14:42 | disposition home or self-care (01) ==
PROVIDERS: Emergency Provider Emergency Medicine
DX: J45.901 Unspecified asthma with (acute) exacerbation (principal); R00.0 Tachycardia, unspecified; R06.82 Tachypnea, not elsewhere classified
CPT/HCPCS: 36415; 71045; 80053; 83690; 83735; 85025; 94640; 96365; 96372; 96375; 99285; 99291; J0171; J2919; J3475; J7613

== ENCOUNTER 2024-10-12 00:15 | Observation (INO) | payer OTHER, MEDICAID, SELFPAY ==
[2024-10-12] VITALS (42 sets, daily range): BP systolic 104–167; BP diastolic 71–113; PULSE 86–119; RESP 14–68; TEMP 29–37.1; O2SAT 91–99; BMI 24.0
[2024-10-12] MEDS: NALOXONE 0.4 MG/ML VIAL IV ×2 (00:18→00:20)
[2024-10-12] MEDS: SODIUM CHLORIDE 0.9% 1,000 ML 1000 ML IV ×2 (00:28→00:51)
[2024-10-12] MEDS: MAGNESIUM SULFATE 2 GM/50 ML PIGGYBACK IV (00:28)
[2024-10-12] MEDS: EPINEPHrine 1 MG/ML 0.5 MG IM (00:30)
[2024-10-12] MEDS: methylPREDNISolone 125 MG/2 ML VIAL IV (00:32)
--- NOTE | 2024-10-12 00:33 | ED_ITS ---
HPI - Altered Mental Status General Chief Complaint: Unresponsive Stated Complaint: asthma Time Seen by Provider: 10/12/24 00:22 Source: family and old records reviewed Mode of arrival: Family Vehicle Limitations: altered mental status History of Present Illness HPI narrative: 34-year-old male history of asthma presents via private auto with a another individual who states he was not breathing. They state has a history of asthma has almost been intubated in the past. Initially they denied any drug use but states they did smoke fentanyl earlier this evening. Patient is unable to participate in history. History obtained from individual that drove patient to the emergency department. Related Data Home Medications Medication Instructions Recorded Confirmed albuterol sulfate 90 mcg/actuation 2 puff inhalation Q6H PRN wheezing 03/29/24 03/29/24 aerosol inhaler Previous Rx's Medication Instructions Recorded albuterol sulfate 90 mcg/actuation 2 puff inhalation Q6H PRN 03/30/24 aerosol inhaler shortness of breath or wheezing #8.5 grams albuterol sulfate 90 mcg/actuation 2 puff inhalation Q4-6H PRN 04/26/24 aerosol inhaler shortness of breath or wheezing #8.5 grams albuterol sulfate 90 mcg/actuation 2 puff inhalation Q6H PRN 07/07/24 aerosol inhaler (Ventolin HFA) shortness of breath or wheezing #8.5 grams albuterol sulfate 90 mcg/actuation 2 puff inhalation Q6H PRN 09/10/24 aerosol inhaler shortness of breath or wheezing #8.5 grams albuterol sulfate 90 mcg/actuation 2 puff inhalation Q6H PRN 10/01/24 aerosol inhaler shortness of breath or wheezing #8.5 grams Allergies Allergy/AdvReac Type Severity Reaction Status Date / Time cat dander Allergy Intermediate Verified 03/29/24 23:47 Review of Systems Review of Systems ROS Unobtainable: Unobtainable due to mental status/LOC Patient History Medical History Gastric ulcer Sternal fracture Asthma Family History Other Family history non-contributory Social History Smoking Status: Never smoker substance use type: does not use Smoking Status: Never smoker alcohol intake frequency: other Substance Use Type: does not use Exam Narrative Exam Narrative: GEN: Pale male, obtunded, severe distress. HEENT: Atraumatic, pupils are equal round reactive to light, extraocular movements are intact, nares are clear, TMs are clear with no fluid, there is no conjunctival pallor. Throat is clear without any exudates, erythema, tonsillar enlargement or uvular deviation HEART: Bradycardic Regular rate and rhythm without murmur, clicks, rubs. Positive pulses LUNGS:Lungs decreased bilaterally with faint wheezes expiratory bilateral, tachypnea, accessory muscle use is present in chest as well as abdomen., rales, crackles, chest moves symmetrically ABD:bowel sounds normal, soft, non-tender, no guarding, rebound, rigidity, no masses noted, no hepatosplenomegaly :No CVA tenderness MSCL: Non-tender, no muscle atrophy, muscles strength 5/5 upper and lower extremities, full range of motion, normal gait NEURO:CN 2-12 intact, patient does withdraw to painful stimuli During removal patient's close pipe consistent with 1 used for smoking drugs fell on the floor. Patient also had several other pieces of paraphernalia consistent with drug use. Initial Vital Signs Initial Vital Signs: Vital Signs Temperature 96.9 F L 10/12/24 00:25 Course Orders Ordered: ED Orders 10/12/24 00:30 Complete Blood Count AUTO DIFF Stat Comprehensive Metabolic Panel Stat D Dimer Stat Lactate (Lactic Acid) Stat Lipase Stat NT-proBNP (BNP-Adult 18+) Stat Procalcitonin Stat Troponin & CK Cardiac Panel Stat 10/12/24 00:32 XR chest 1V Stat EKG-12 Lead Stat 10/12/24 00:33 ABG [Arterial Blood Gas] STAT 10/12/24 01:50 Blood Culture Stat 10/12/24 02:10 BMP [Basic Metabolic Panel] Stat Acetaminophen (Acetaminophen 325 Mg Tablet) 650 mg PO Q6H PRN PRN Reason: Fever/Mild Pain (1-3) Albuterol/Ipratropium (Albuterol/Ipratropium 3 Ml Ampul) 3 ml INH [id number] ANDREA Albuterol/Ipratropium (Albuterol/Ipratropium 3 Ml Ampul) 3 ml INH RTQ4HR PRN PRN Reason: Shortness Of Breath Ketamine HCl 100 mg/ Sodium (Chloride) 102 mls @ 6.12 mls/hr IV TITRATE ANDREA Sodium Chloride (Normal Saline 0.9%) 1,000 mls @ 100 mls/hr IV CONT [facility] Methylprednisolone (Methylprednisolone 125 Mg/2 Ml Vial) 60 mg IV Q8H ANDREA Naloxone HCl (Naloxone 0.4 Mg/Ml Vial) 0.4 mg IV PRN PRN PRN Reason: Opiate Reversal Last Admin: 10/12/24 00:20 Dose: 0.4 mg Documented By: Admin: 10/12/24 00:18 Dose: 0.4 mg Documented By: NGOC Naloxone HCl (Naloxone 0.4 Mg/Ml Vial) 0.4 mg IV PRN PRN PRN Reason: Opiate Reversal Naloxone HCl (Naloxone 0.4 Mg/Ml Vial) 0.2 mg IV Q2MIN PRN PRN Reason: Opiate Reversal Ondansetron HCl (Ondansetron 4 Mg/2 Ml Inj) 4 mg IV Q6HR PRN PRN Reason: Nausea And Vomiting Pantoprazole Sodium (Pantoprazole Dr 40 Mg Tablet) 40 mg PO 0700 [facility] Discontinued Medications Albuterol (Albuterol 2.5 Mg/3 Ml Neb (Adult)) 20 mg INH NOW ONE Stop: 10/12/24 01:20 Last Admin: 10/12/24 01:25 Dose: 20 mg Documented By: Albuterol/Ipratropium (Albuterol/Ipratropium 3 Ml Ampul) 6 ml INH NOW ONE Stop: 10/12/24 02:41 Last Admin: 10/12/24 02:43 Dose: 6 ml Documented By: Epinephrine HCl (Epinephrine 1 Mg/Ml) 0.5 mg IM NOW ONE Stop: 10/12/24 00:26 Last Admin: 10/12/24 00:30 Dose: 0.5 mg Documented By: NGOC Sodium Chloride (Normal Saline 0.9%) 1,000 mls @ 1,000 mls/hr IV BOLUS ONE Stop: 10/12/24 01:21 Last Infusion: 10/12/24 02:00 Dose: Infused Documented By: Admin: 10/12/24 00:28 Dose: 1,000 mls/hr Documented By: NGOC Magnesium Sulfate (Magnesium Sulfate) 2 gm in 50 mls @ 150 mls/hr IV NOW ONE Stop: 10/12/24 00:41 Last Infusion: 10/12/24 01:02 Dose: Infused Documented By: NGOC Co-signed By: MARLA Admin: 10/12/24 00:28 Dose: 150 mls/hr Documented By: NGOC Co-signed By: CALDERON Sodium Chloride (Normal Saline 0.9%) 1,000 mls @ 1,000 mls/hr IV BOLUS ONE Stop: 10/12/24 01:31 Last Infusion: 10/12/24 01:31 Dose: Infused Documented By: Admin: 10/12/24 00:51 Dose: 1,000 mls/hr Documented By: NGOC Ketamine HCl 100 mg/ Sodium (Chloride) 110 mls @ 6.6 mls/hr IV TITRATE ANDREA; Protocol Last Admin: 10/12/24 01:33 Dose: Not Given Documented By: NGOC Ketamine HCl 500 mg/ Sodium (Chloride) 500 mls @ 6 mls/hr IV TITRATE ANDREA Ketamine HCl (Ketamine 500 Mg/5 Ml Inj) 100 mg IV NOW ONE Stop: 10/12/24 00:36 Last Admin: 10/12/24 00:35 Dose: 100 mg Documented By: NGOC Ketamine HCl (Ketamine 500 Mg/5 Ml Inj) 100 mg IV NOW ONE Stop: 10/12/24 00:46 Last Admin: 10/12/24 00:45 Dose: 100 mg Documented By: NGOC Methylprednisolone (Methylprednisolone 125 Mg/2 Ml Vial) 125 mg IV NOW ONE Stop: 10/12/24 00:23 Last Admin: 10/12/24 00:32 Dose: 125 mg Documented By: NGOC Sodium Bicarbonate (Sodium Bicarb 8.4% Syringe) 50 meq IV NOW ONE Stop: 10/12/24 00:52 Last Admin: 10/12/24 00:53 Dose: 50 meq Documented By: NGOC Vital Signs Vital signs: Vital Signs - 8 hr 10/12/24 00:25 10/12/24 00:31 10/12/24 00:41 Temperature 96.9 F L Pulse Rate 101 H Respiratory Rate 63 H Blood Pressure 163/113 H Pulse Oximetry 96 Oxygen Delivery Method Aerosol Mask Oxygen Flow Rate 6 10/12/24 00:41 10/12/24 00:43 10/12/24 00:43 Temperature Pulse Rate 97 H 100 H Respiratory Rate 58 H 58 H Blood Pressure 162/99 H Pulse Oximetry 96 97 Oxygen Delivery Method Aerosol Mask Aerosol Mask Oxygen Flow Rate 6 10/12/24 00:45 10/12/24 00:45 10/12/24 00:50 Temperature Pulse Rate 95 H Respiratory Rate 68 H Blood Pressure 163/95 H 162/86 H Pulse Oximetry 93 Oxygen Delivery Method Aerosol Mask Oxygen Flow Rate 6 10/12/24 00:50 10/12/24 00:54 10/12/24 00:55 Temperature Pulse Rate 98 H 101 H Respiratory Rate 61 H 60 H Blood Pressure 165/92 H Pulse Oximetry 91 92 Oxygen Delivery Method Aerosol Mask Aerosol Mask Oxygen Flow Rate 6 6 10/12/24 00:58 10/12/24 01:00 10/12/24 01:00 Temperature Pulse Rate 115 H Respiratory Rate 45 H 44 H Blood Pressure 167/94 H Pulse Oximetry 99 99 Oxygen Delivery Method BiPAP BiPAP Oxygen Flow Rate 10/12/24 01:05 10/12/24 01:05 10/12/24 01:10 Temperature Pulse Rate 117 H 116 H Respiratory Rate 37 H 36 H Blood Pressure 157/89 H Pulse Oximetry 99 99 Oxygen Delivery Method BiPAP Oxygen Flow Rate 10/12/24 01:10 10/12/24 01:15 10/12/24 01:15 Temperature Pulse Rate 111 H Respiratory Rate 34 H Blood Pressure 142/94 H 145/92 H Pulse Oximetry 98 Oxygen Delivery Method BiPAP Oxygen Flow Rate 10/12/24 01:20 10/12/24 01:20 10/12/24 01:25 Temperature Pulse Rate 116 H Respiratory Rate 26 H Blood Pressure 146/98 H 140/88 Pulse Oximetry 99 Oxygen Delivery Method BiPAP Oxygen Flow Rate 10/12/24 01:25 10/12/24 01:26 10/12/24 01:28 Temperature Pulse Rate 119 H Respiratory Rate 21 Blood Pressure 131/85 Pulse Oximetry 97 Oxygen Delivery Method BiPAP Oxygen Flow Rate 4 10/12/24 01:30 10/12/24 01:30 10/12/24 01:35 Temperature Pulse Rate 114 H Respiratory Rate 32 H Blood Pressure 131/85 133/82 Pulse Oximetry 98 Oxygen Delivery Method BiPAP Oxygen Flow Rate 10/12/24 01:35 10/12/24 01:40 10/12/24 01:40 Temperature Pulse Rate 109 H 107 H Respiratory Rate 38 H 37 H Blood Pressure 130/85 Pulse Oximetry 98 98 Oxygen Delivery Method BiPAP BiPAP Oxygen Flow Rate 10/12/24 01:45 10/12/24 01:45 10/12/24 01:50 Temperature 97.7 F Pulse Rate 105 H Respiratory Rate 29 H Blood Pressure 129/82 138/82 Pulse Oximetry 99 Oxygen Delivery Method BiPAP Oxygen Flow Rate 10/12/24 01:50 10/12/24 01:55 10/12/24 01:55 Temperature Pulse Rate 104 H 101 H Respiratory Rate 30 H 31 H Blood Pressure 130/82 Pulse Oximetry 99 99 Oxygen Delivery Method Oxygen Flow Rate 10/12/24 02:00 10/12/24 02:00 10/12/24 02:05 Temperature Pulse Rate 102 H Respiratory Rate 29 H Blood Pressure 129/85 126/87 Pulse Oximetry 99 Oxygen Delivery Method BiPAP Oxygen Flow Rate 10/12/24 02:05 10/12/24 02:08 10/12/24 02:08 Temperature Pulse Rate 99 H 100 H Respiratory Rate 29 H 24 Blood Pressure 128/87 Pulse Oximetry 99 98 Oxygen Delivery Method BiPAP Oxygen Flow Rate 10/12/24 02:15 10/12/24 02:15 10/12/24 02:20 Temperature Pulse Rate 99 H Respiratory Rate 20 Blood Pressure 130/77 128/79 Pulse Oximetry 99 Oxygen Delivery Method Oxygen Flow Rate 10/12/24 02:20 10/12/24 02:25 10/12/24 02:25 Temperature Pulse Rate 102 H 97 H Respiratory Rate 23 22 Blood Pressure 130/85 Pulse Oximetry 96 98 Oxygen Delivery Method BiPAP BiPAP Oxygen Flow Rate 10/12/24 02:30 10/12/24 02:30 10/12/24 02:35 Temperature Pulse Rate 95 H Respiratory Rate 20 27 H Blood Pressure 119/86 Pulse Oximetry 98 94 Oxygen Delivery Method BiPAP BiPAP Oxygen Flow Rate 10/12/24 02:38 10/12/24 02:45 10/12/24 02:45 Temperature Pulse Rate 92 H Respiratory Rate 26 H Blood Pressure 121/83 Pulse Oximetry 93 98 Oxygen Delivery Method Room Air Room Air Oxygen Flow Rate 10/12/24 03:00 10/12/24 03:00 Temperature Pulse Rate 102 H Respiratory Rate 21 Blood Pressure 122/81 Pulse Oximetry 95 Oxygen Delivery Method Room Air Oxygen Flow Rate MDM - Altered Mental Status Lab Data 10/12/24 00:30 10/12/24 02:10 Labs: Lab Results 10/12/24 10/12/24 10/12/24 Range/Units 00:30 00:48 02:10 WBC 21.8 H (4.5-11.0) X10^3/uL RBC 5.38 (4.5-5.9) X10^6/uL Hgb 15.8 (13.5-17.5) g/dL Hct 48.5 (41-53) % MCV 90.1 (80-100) fL MCH 29.3 (26-34) PG MCHC 32.5 (30-36) % RDW 13.9 (11.6-14.8) % Plt Count 368 (150-400) X10^3/uL Neut % (Auto) 34.2 L (50-75) % Lymph % (Auto) 44.7 H (25-40) % [place] % (Auto) 11.5 (3-14) % Eos % (Auto) 8.9 H (2-4) % Baso % (Auto) 0.7 (0-2) % Neut # (Auto) 7500 H (4794-7663) /uL Lymph # (Auto) 9700 H (5437-5612) /uL [place] # (Auto) 2500 H (0-900) /uL Eos # (Auto) 1900 H (0-450) /uL Baso # (Auto) 200 H (0-100) /uL D-Dimer 239 (<500) ng/ml ABG Sample Site Left radial ABG pH 6.96 L* (7.35-7.45) ABG pCO2 106.0 H* (35-45) mmHg ABG pO2 132 H (80-100) mmHg ABG HCO3 24 (23-27) mmol/L ABG Total CO2 26 (23-27) mmol/L ABG O2 Saturation 96 (95-100) % ABG Base Excess -11.4 L (-2-3) mmol/L Jaquan Test Positive Sodium 140 137 (137-145) mmol/L Potassium 5.6 H 3.4 D (3.4-5.1) mmol/L Chloride 103 106 (98-107) mmol/L Carbon Dioxide 20 L 28 (22-32) mmol/L BUN 12 12 (9-20) mg/dL Creatinine 1.08 0.84 (0.66-1.25) mg/dL Estimated GFR > 60 > 60 (>60) mL/min BUN/Creatinine Ratio 11.1 14.3 (6-22) Glucose 176 H 124 H (70-100) mg/dL Lactate 9.6 H* 1.5 (0.7-2.1) mmol/L Calcium 9.9 8.2 L (8.4-10.2) mg/dL Total Bilirubin 1.2 (0.2-1.3) mg/dL AST 40 (17-59) IU/L ALT 30 (<50) IU/L Alkaline Phosphatase 88 (38-126) U/L Total Creatine Kinase 116 (55-170) U/L Troponin I < 0.012 (0.01-0.034) ng/mL NT-Pro-B Natriuret Pep 31 (<125) pg/mL Total Protein 7.7 (6.3-8.2) g/dL Albumin 4.6 (3.5-5.0) g/dL Globulin 3.1 (1.7-4.1) g/dL Albumin/Globulin Ratio 1.5 (1.0-2.8) Lipase 42 (23-300) U/L Procalcitonin 0.053 (<0.5) ng/mL 10/12/24 Range/Units 02:24 WBC (4.5-11.0) X10^3/uL RBC (4.5-5.9) X10^6/uL Hgb (13.5-17.5) g/dL Hct (41-53) % MCV (80-100) fL MCH (26-34) PG MCHC (30-36) % RDW (11.6-14.8) % Plt Count (150-400) X10^3/uL Neut % (Auto) (50-75) % Lymph % (Auto) (25-40) % [place] % (Auto) (3-14) % Eos % (Auto) (2-4) % Baso % (Auto) (0-2) % Neut # (Auto) (9545-6586) /uL Lymph # (Auto) (1115-4903) /uL [place] # (Auto) (0-900) /uL Eos # (Auto) (0-450) /uL Baso # (Auto) (0-100) /uL D-Dimer (<500) ng/ml ABG Sample Site ABG pH 7.38 (7.35-7.45) ABG pCO2 40.9 (35-45) mmHg ABG pO2 73 L (80-100) mmHg ABG HCO3 24 (23-27) mmol/L ABG Total CO2 24 (23-27) mmol/L ABG O2 Saturation 94 L (95-100) % ABG Base Excess -1.3 (-2-3) mmol/L Jaquan Test Sodium (137-145) mmol/L Potassium (3.4-5.1) mmol/L Chloride (98-107) mmol/L Carbon Dioxide (22-32) mmol/L BUN (9-20) mg/dL Creatinine (0.66-1.25) mg/dL Estimated GFR (>60) mL/min BUN/Creatinine Ratio (6-22) Glucose (70-100) mg/dL Lactate (0.7-2.1) mmol/L Calcium (8.4-10.2) mg/dL Total Bilirubin (0.2-1.3) mg/dL AST (17-59) IU/L ALT (<50) IU/L Alkaline Phosphatase (38-126) U/L Total Creatine Kinase (55-170) U/L Troponin I (0.01-0.034) ng/mL NT-Pro-B Natriuret Pep (<125) pg/mL Total Protein (6.3-8.2) g/dL Albumin (3.5-5.0) g/dL Globulin (1.7-4.1) g/dL Albumin/Globulin Ratio (1.0-2.8) Lipase (23-300) U/L Procalcitonin (<0.5) ng/mL Point of Care Testing Glucose POC 190 Imaging Data Chest x-ray: Radiologist's Impression: Fritz Ware??34??M??1990 ? Allergy/Adv: cat dander Close Chest X-Ray (Signed) Maxine Machado - 10/12/24 Chest X-Ray (Signed) Devyn Velásquez - 10/01/24 Chest X-Ray (Signed) MachadoMaxine gallardo - 09/10/24 Chest X-Ray (Signed) Osborne,[place] - 02/16/[address] (Signed) Wes Cole - 09/29/21 Chest X-Ray (Signed) KanuKiah garcia - 10/28/19 Chest X-Ray (Signed) VincentPuma - 12/26/18 Launch?Image [address] [address] XRay Report Signed Patient: Fritz Ware MR#: [id number] : 1990 Acct:[id number] Age/Sex: 34 / M Date of Service: 10/12/24 Loc: ED Accession Number: [id number] Procedure: XR chest 1V Ordering Provider: Marianne Frost D.O. PROCEDURE: XR CHEST 1V INDICATIONS: sob TECHNIQUE: One view of the chest was acquired. COMPARISON: [facility], , XR CHEST 1V, 10/01/2024, 10:46. FINDINGS: Surgical changes and devices: None. Lungs and pleura: Lungs are clear. No pleural effusions or pneumothorax. Mediastinum: Mediastinal contours appear normal. Heart size is normal. Bones and chest wall: No suspicious bony lesions. Overlying soft tissues appear unremarkable. IMPRESSION: No acute pulmonary process. Dictated by: Maxine Machado M.D. on 10/12/2024 at 0:50 Approved by: Maxine Machado M.D. on 10/12/2024 at 0:50 ECG Data Attestation: I personally reviewed and interpreted this ECG as follows: Interpretation: EKG sinus bradycardia rate of [address] elevation depression Repeat EKG shows sinus rhythm rate 87 ME 166 QRS 86 QTC of 445. No acute ST changes. [facility] Narrative Medical decision making narrative: 34-year-old male history of asthma but also recent narcotic usage. Patient was in his vehicle, was removed agonal respirations cyanotic with a pulse 40s. Patient has significantly decreased breath sounds has had significant asthma exacerbations in the past received BVM, Narcan which had improvement in color and had improvement in mentation but continued to be quite dyspneic. Patient given 20 mg of albuterol Solu-Medrol, magnesium, patient has received epi IM past with good improvement so was given a dose of 0.5 epinephrine IM. Also given ketamine for for bronchodilation. Has had some improvement aeration color. Patient's tachycardia now instead bradycardic improved. He is little bit hypertensive. Patient is high-risk for further decompensation set up for intubation at bedside but as patient has asthma history is high-risk for decompensation with intubation as well. Ketamine drip ordered to help with bronchodilation. Labs white count of 21, hemoglobin of 15 platelets of 368. Dimer is 239. Sodium is 140 potassium 5.6 chloride 103 CO2 is 20 BUN 12 creatinine is 1.08 glucose is 176 troponins less than 0.012 with a BNP of 31 EKG sinus bradycardia rate of [address] elevation depression. ABG pH of 6 point pCO2 of 106 bicarb 24 PO2 of 132. Chest x-ray shows no acute change Patient was given additional dose of ketamine. ABG shows respiratory acidosis was placed on BiPAP to this would improve patient's mentation. After about 20 minutes patient is starting having increasing localized movements, able to save a few short words does have improvement in his aeration diaphoresis has resolved. We will repeat ABG. Patient has been closely monitored in his had improving mentation. Did pull off BiPAP once or twice briefly as patient felt like he was going to be nauseated was given a dose of Zofran. He was able to indicate when he feels nauseated he can tell me he was at [facility]. Patient continues to appear improved. There was delay in obtaining ketamine gtt and as patient is improving was held. Plan to repeat lactate and BMP. Repeat EKG shows sinus rhythm. Repeat ABG. Significant improvement pH of 7.3 7, pCO2 is 40, PO2 of 72 with a bicarb of 23. Patient is conversant. Patient was removed off bipap is still a little bit tight still has a little bit of wheeze, he is conversant and alert. No significant work of breathing currently. We will give some DuoNebs. Repeat BMP shows a potassium of 3.4 renal functions otherwise appropriate CO2 is 28 with a glucose of 124. Repeat lactate is 1.5. 34-year-old male with severe asthma exacerbation with report of recent upper respiratory infection but also smoked fentanyl earlier this evening likely kicking off asthma exacerbation in combination with potential fentanyl overdose. Patient is still has some wheeze on exam he is significantly improved. Plan for admission spoke with Dr. Choudhury hospitalist who accepts for inpatient. Patient is much improved but we will go to the ICU for close monitoring. Critical Care Time Critical Care Time Critical Care Time: Yes Total Critical Care Time: 55 Attestation: The high probability of a clinically significant, sudden or life threatening deterioration of the pulmonary system(s) required my full and direct attention, intervention and personal management. The aggregate critical care time was [--] minutes. This time is in addition to time spent performing reported procedures but includes the following: [x] Data Review and interpretation [x] Patient assessment and monitoring of vital signs [x] Documentation [x] Medication orders and management Discharge Plan Departure Patient Disposition: Admitted As Inpatient Clinical Impression: Asthma exacerbation, Overdose, Acute respiratory failure with hypoxia and hypercapnia Admit Date/Time: 10/12/24 03:04 Admit Provider: Micha Choudhury
[2024-10-12] MEDS: KETAMINE 500 MG/5 ML INJ 100 MG IV ×2 (00:35→00:45)
[2024-10-12 00:41] LABS: Add Manual Diff / Slide Review NO; Basophils Absolute Auto 200 /uL (0-100); Basophils Percent Auto 0.7 % (0-2); Eosinophils Absolute Auto 1900 /uL (0-450); Eosinophils Percent Auto 8.9 % (2-4); Hematocrit 48.5 % (41-53); Hemoglobin 15.8 g/dL (13.5-17.5); Lymphocytes Absolute Auto 9700 /uL (1100-4500); Lymphocytes Percent Auto 44.7 % (25-40); Mean Corpuscular HGB Conc 32.5 % (30-36); Mean Corpuscular Hemoglobin 29.3 PG (26-34); Mean Corpuscular Volume 90.1 fL (80-100); Monocytes Absolute Auto 2500 /uL (0-900); Monocytes Percent Auto 11.5 % (3-14); Neutrophils Absolute Auto 7500 /uL (1500-7000); Neutrophils Percent Auto 34.2 % (50-75); Platelet Count 368 X10^3/uL (150-400); Red Blood Cell Count 5.38 X10^6/uL (4.5-5.9); Red Cell Distribution Width 13.9 % (11.6-14.8); White Blood Cell Count 21.8 X10^3/uL (4.5-11.0)
[2024-10-12 00:46] LABS: D Dimer 239 ng/ml (<500)
[2024-10-12 00:52] LABS: Allen Test for ABG Passed? Positive; Base Excess ABG -11.4 mmol/L (-2-3); Blood Gas Collection Site Left Radial; HCO3 ABG 24 mmol/L (23-27); Oxygen Saturation ABG 96 % (95-100); PO2 ABG 132 mmHg (80-100); TCO2 ABG 26 mmol/L (23-27); pH ABG 6.96 (7.35-7.45)
[2024-10-12] MEDS: SODIUM BICARB 8.4% SYRINGE 50 MEQ IV (00:53)
[2024-10-12 00:54] LABS: Alanine Aminotransferase 30 IU/L (<50); Albumin 4.6 g/dL (3.5-5.0); Albumin Globulin Ratio 1.5 (1.0-2.8); Alkaline Phosphatase 88 U/L (38-126); Aspartate Aminotransferase 40 IU/L (17-59); BUN Creatinine Ratio 11.1 (6-22); Bilirubin Total 1.2 mg/dL (0.2-1.3); Blood Urea Nitrogen 12 mg/dL (9-20); Calcium 9.9 mg/dL (8.4-10.2); Carbon Dioxide 20 mmol/L (22-32); Chloride 103 mmol/L (98-107); Creatine Kinase 116 U/L (55-170); Estimated Glomerular Filt Rate > 60 mL/min (>60); Globulin 3.1 g/dL (1.7-4.1); Glucose 176 mg/dL (70-100); HEMOLYSIS 23 (0-50); Lipase 42 U/L (23-300); Sodium 140 mmol/L (137-145); Total Protein 7.7 g/dL (6.3-8.2)
[2024-10-12 01:00] LABS: Potassium 5.6 mmol/L (3.4-5.1)
[2024-10-12 01:06] LABS: NT-proBNP (BNP-Adult 18+) 31 pg/mL (<125); Troponin I < 0.012 ng/mL (0.01-0.034)
[2024-10-12] MEDS: ALBUTEROL 2.5 MG/3 ML NEB (ADULT) 20 MG INH (01:25)
[2024-10-12 01:29] LABS: Lactate (Lactic Acid) 9.6 mmol/L (0.7-2.1)
[2024-10-12 01:44] LABS: Procalcitonin 0.053 ng/mL (<0.5)
--- NOTE | 2024-10-12 01:52 | PC.NURSE ---
Back chartin patient bright in by friend vehicle and nursing staff needed to get pt out of the vehicle as pt was unresponsive. patient had a very thready nelson pulse and was not breathing. Patient was cold, diaphoretic, dusky pale with mottled extremities and trunk. placed patient on gurney and began giving breaths via bvm with o2. 0020 Patient began taking breaths on his own with 6L o2 with albuterol tx going. Patient GCS 9. 0040: pads placed on patient 0050: patient began struggling with breathing and began grunting. O2 saturation 91% with 6L oxygen via aerosol mask RT in room. 0058: patient placed on BiPAP, tolerating well. O2 sats 99% on BiPAP
--- NOTE | 2024-10-12 02:24 | PC.NURSE ---
Patient awake, and AAOx4. Does not remember what happened. When asked what happened pt replied it was my cats that gave me anashtma attack and I was already fighting something for a couple of weeks. When asked if he smoked/took any drugs, pt nodded yes. Does not remember what of how much. Patient lying in gurney, tolerating BiPAP. Patient on his cellphone.
[2024-10-12 02:27] LABS: Base Excess ABG -1.3 mmol/L (-2-3); HCO3 ABG 24 mmol/L (23-27); Oxygen Saturation ABG 94 % (95-100); PCO2 ABG 40.9 mmHg (35-45); PO2 ABG 73 mmHg (80-100); TCO2 ABG 24 mmol/L (23-27); pH ABG 7.38 (7.35-7.45)
--- NOTE | 2024-10-12 02:32 | EKG_ITS ---
[facility] [address] [address] Test Date: 2024-10-12 Pat Name: Fritz Ware Department: [facility] Room: Gender: Male Experienced Truck Driver: Marycruz GRANT : 1990 Requested By: Order Number: [id number] Reading MD: Jaquan Ramon Measurements Intervals [place] Rate: 87 P: 68 [place]: 166 QRS: 59 QRSD: 86 T: 57 QT: 370 QTc: 445 Interpretive Statements Normal sinus rhythm Electronically Signed On 10-12-2024 8:10:02 PST by Jaquan Ramon
[2024-10-12 02:33] LABS: BUN Creatinine Ratio 14.3 (6-22); Blood Urea Nitrogen 12 mg/dL (9-20); Calcium 8.2 mg/dL (8.4-10.2); Carbon Dioxide 28 mmol/L (22-32); Chloride 106 mmol/L (98-107); Estimated Glomerular Filt Rate > 60 mL/min (>60); Glucose 124 mg/dL (70-100); HEMOLYSIS < 15 (0-50); Potassium 3.4 mmol/L (3.4-5.1); Sodium 137 mmol/L (137-145)
--- NOTE | 2024-10-12 02:35 | PC.NURSE ---
Patient asking to be off BiPAP. Patient speaking in full sentences, breathing even and unlabored when at rest. Still wheezing upon auscultation. Dr. Frost in room with RT and agreed to do trial off of BIPAP. Dr. Frost also ordered albuterol tx-- see RAJI, admin by RT Nicole.
[2024-10-12] MEDS: ALBUTEROL/IPRATROPIUM 3 ML AMPUL 6 ML INH (02:43)
[2024-10-12 02:53] LABS: Reflexed Lactate in 2 Hours Y
[2024-10-12 02:56] LABS: Lactate 2HR (Lactic Acid Rflx) 1.5 mmol/L (0.7-2.1)
--- NOTE | 2024-10-12 03:04 | PC.NURSE ---
Pt off of nebulizer, on room air. O2 sats 93%. Pt resting in gurney eyes shut, breathing even and unlabored.
[2024-10-12 06:24] LABS: Add Manual Diff / Slide Review NO; Basophils Absolute Auto 0 /uL (0-100); Basophils Percent Auto 0.1 % (0-2); Eosinophils Absolute Auto 0 /uL (0-450); Eosinophils Percent Auto 0.1 % (2-4); Hematocrit 42.2 % (41-53); Hemoglobin 14.5 g/dL (13.5-17.5); Lymphocytes Absolute Auto 600 /uL (1100-4500); Lymphocytes Percent Auto 3.9 % (25-40); Mean Corpuscular HGB Conc 34.3 % (30-36); Mean Corpuscular Hemoglobin 29.5 PG (26-34); Mean Corpuscular Volume 85.8 fL (80-100); Monocytes Absolute Auto 200 /uL (0-900); Neutrophils Absolute Auto 14600 /uL (1500-7000); Neutrophils Percent Auto 94.9 % (50-75); Platelet Count 279 X10^3/uL (150-400); Red Blood Cell Count 4.92 X10^6/uL (4.5-5.9); Red Cell Distribution Width 13.9 % (11.6-14.8); White Blood Cell Count 15.4 X10^3/uL (4.5-11.0)
[2024-10-12 06:35] LABS: MRSA (Nasal) PCR NOT DETECTED (Not Detect)
[2024-10-12 06:38] LABS: Alanine Aminotransferase 29 IU/L (<50); Albumin 3.8 g/dL (3.5-5.0); Albumin Globulin Ratio 1.3 (1.0-2.8); Alkaline Phosphatase 99 U/L (38-126); Aspartate Aminotransferase 40 IU/L (17-59); Bilirubin Total 0.8 mg/dL (0.2-1.3); Blood Urea Nitrogen 12 mg/dL (9-20); Calcium 8.1 mg/dL (8.4-10.2); Carbon Dioxide 24 mmol/L (22-32); Chloride 107 mmol/L (98-107); Estimated Glomerular Filt Rate > 60 mL/min (>60); Globulin 2.9 g/dL (1.7-4.1); Glucose 146 mg/dL (70-100); HEMOLYSIS < 15 (0-50); Potassium 3.3 mmol/L (3.4-5.1); Sodium 138 mmol/L (137-145); Total Protein 6.7 g/dL (6.3-8.2)
--- NOTE | 2024-10-12 06:45 | P.HP_ITS ---
History of Present Illness History of Present Illness Chief complaint: asthma Narrative: 34-year-old male with past medical history of asthma presents with respiratory distress and alter mental status. Per report the patient was brought in by his girlfriend. The patient states that he was at his mother house over the last two days. There at his mother house was a cat which usually can trigger his asthma attack. In addition, the patient was smoking fentanyl with his girlfriend. The patient states he then had difficulty breathing and his airway seems very tight. The patient was noted to have difficulty breathing when EMS arrived. Per report the patient was noted to have agonal respirations and cyanotic. The patient's pluse was noted to be in the 40s. Patient was immediately given Narcan with some improvement in his color but his breathing was still dyspneic. The patient was then given 20 mg as well as Epinephrine IM. Ketamin was also given as a bronchodilator. On arrival to our ER, lab shows a WBC of 21,000 hemoglobin 15 and platelets of 368. D dimer 239 sodium 140 potassium 5.6 chloride 103 BUN 12 and 1.08 glucose 176 troponin less than 0.012 and BMP of 31. Lactic acid 9. EKG shows sinus bradycardia but no signs of ST or T wave changes. ABG pH 6.96 PCO2 106 bicarb 24 and pO2 32 chest x-ray was clear. Patient was started on ketamine gtt as well as BiPAP placement. Patient did improve. Patient did pull off the BiPAP it was nauseous and Zofran was given.repeat shows at PO 7.38 PCO 40 PO 73 bicarb 23. PFSH Medical History Gastric ulcer Sternal fracture Asthma Family History Other Family history non-contributory Social History household members: family Smoking Status: Never smoker alcohol intake: former substance use type: does not use Meds Home Medications and Allergies Home Medications Medication Instructions Recorded Confirmed Type albuterol sulfate 90 mcg/actuation 2 puff inhalation Q6H PRN wheezing 03/29/24 03/29/24 History aerosol inhaler albuterol sulfate 90 mcg/actuation 2 puff inhalation Q6H PRN 03/30/24 Rx aerosol inhaler shortness of breath or wheezing #8.5 grams albuterol sulfate 90 mcg/actuation 2 puff inhalation Q4-6H PRN 04/26/24 Rx aerosol inhaler shortness of breath or wheezing #8.5 grams albuterol sulfate 90 mcg/actuation 2 puff inhalation Q6H PRN 07/07/24 Rx aerosol inhaler (Ventolin HFA) shortness of breath or wheezing #8.5 grams albuterol sulfate 90 mcg/actuation 2 puff inhalation Q6H PRN 09/10/24 Rx aerosol inhaler shortness of breath or wheezing #8.5 grams albuterol sulfate 90 mcg/actuation 2 puff inhalation Q6H PRN 10/01/24 Rx aerosol inhaler shortness of breath or wheezing #8.5 grams Allergies Allergy/AdvReac Type Severity Reaction Status Date / Time cat dander Allergy Intermediate Verified 03/29/24 23:47 Review of Systems Review of Systems ROS: Yes All systems reviewed with the patient and are negative except as otherwise documented Exam Vital Signs (past 8 hours): - 10/12/24 00:25 10/12/24 00:31 10/12/24 00:41 Temperature 96.9 F L Pulse Rate 101 H Respiratory Rate 63 H Blood Pressure 163/113 H Pulse Oximetry 96 Oxygen Delivery Method Aerosol Mask Oxygen Flow Rate 6 10/12/24 00:41 10/12/24 00:43 10/12/24 00:43 Temperature Pulse Rate 97 H 100 H Respiratory Rate 58 H 58 H Blood Pressure 162/99 H Pulse Oximetry 96 97 Oxygen Delivery Method Aerosol Mask Aerosol Mask Oxygen Flow Rate 6 10/12/24 00:45 10/12/24 00:45 10/12/24 00:50 Temperature Pulse Rate 95 H Respiratory Rate 68 H Blood Pressure 163/95 H 162/86 H Pulse Oximetry 93 Oxygen Delivery Method Aerosol Mask Oxygen Flow Rate 6 10/12/24 00:50 10/12/24 00:54 10/12/24 00:55 Temperature Pulse Rate 98 H 101 H Respiratory Rate 61 H 60 H Blood Pressure 165/92 H Pulse Oximetry 91 92 Oxygen Delivery Method Aerosol Mask Aerosol Mask Oxygen Flow Rate 6 6 10/12/24 00:58 10/12/24 01:00 10/12/24 01:00 Temperature Pulse Rate 115 H Respiratory Rate 45 H 44 H Blood Pressure 167/94 H Pulse Oximetry 99 99 Oxygen Delivery Method BiPAP BiPAP Oxygen Flow Rate 10/12/24 01:05 10/12/24 01:05 10/12/24 01:10 Temperature Pulse Rate 117 H 116 H Respiratory Rate 37 H 36 H Blood Pressure 157/89 H Pulse Oximetry 99 99 Oxygen Delivery Method BiPAP Oxygen Flow Rate 10/12/24 01:10 10/12/24 01:15 10/12/24 01:15 Temperature Pulse Rate 111 H Respiratory Rate 34 H Blood Pressure 142/94 H 145/92 H Pulse Oximetry 98 Oxygen Delivery Method BiPAP Oxygen Flow Rate 10/12/24 01:20 10/12/24 01:20 10/12/24 01:25 Temperature Pulse Rate 116 H Respiratory Rate 26 H Blood Pressure 146/98 H 140/88 Pulse Oximetry 99 Oxygen Delivery Method BiPAP Oxygen Flow Rate 10/12/24 01:25 10/12/24 01:26 10/12/24 01:28 Temperature Pulse Rate 119 H Respiratory Rate 21 Blood Pressure 131/85 Pulse Oximetry 97 Oxygen Delivery Method BiPAP Oxygen Flow Rate 4 10/12/24 01:30 10/12/24 01:30 10/12/24 01:35 Temperature Pulse Rate 114 H Respiratory Rate 32 H Blood Pressure 131/85 133/82 Pulse Oximetry 98 Oxygen Delivery Method BiPAP Oxygen Flow Rate 10/12/24 01:35 10/12/24 01:40 10/12/24 01:40 Temperature Pulse Rate 109 H 107 H Respiratory Rate 38 H 37 H Blood Pressure 130/85 Pulse Oximetry 98 98 Oxygen Delivery Method BiPAP BiPAP Oxygen Flow Rate 10/12/24 01:45 10/12/24 01:45 10/12/24 01:50 Temperature 97.7 F Pulse Rate 105 H Respiratory Rate 29 H Blood Pressure 129/82 138/82 Pulse Oximetry 99 Oxygen Delivery Method BiPAP Oxygen Flow Rate 10/12/24 01:50 10/12/24 01:55 10/12/24 01:55 Temperature Pulse Rate 104 H 101 H Respiratory Rate 30 H 31 H Blood Pressure 130/82 Pulse Oximetry 99 99 Oxygen Delivery Method Oxygen Flow Rate 10/12/24 02:00 10/12/24 02:00 10/12/24 02:05 Temperature Pulse Rate 102 H Respiratory Rate 29 H Blood Pressure 129/85 126/87 Pulse Oximetry 99 Oxygen Delivery Method BiPAP Oxygen Flow Rate 10/12/24 02:05 10/12/24 02:08 10/12/24 02:08 Temperature Pulse Rate 99 H 100 H Respiratory Rate 29 H 24 Blood Pressure 128/87 Pulse Oximetry 99 98 Oxygen Delivery Method BiPAP Oxygen Flow Rate 10/12/24 02:15 10/12/24 02:15 10/12/24 02:20 Temperature Pulse Rate 99 H Respiratory Rate 20 Blood Pressure 130/77 128/79 Pulse Oximetry 99 Oxygen Delivery Method Oxygen Flow Rate 10/12/24 02:20 10/12/24 02:25 10/12/24 02:25 Temperature Pulse Rate 102 H 97 H Respiratory Rate 23 22 Blood Pressure 130/85 Pulse Oximetry 96 98 Oxygen Delivery Method BiPAP BiPAP Oxygen Flow Rate 10/12/24 02:30 10/12/24 02:30 10/12/24 02:35 Temperature Pulse Rate 95 H Respiratory Rate 20 27 H Blood Pressure 119/86 Pulse Oximetry 98 94 Oxygen Delivery Method BiPAP BiPAP Oxygen Flow Rate 10/12/24 02:38 10/12/24 02:45 10/12/24 02:45 Temperature Pulse Rate 92 H Respiratory Rate 26 H Blood Pressure 121/83 Pulse Oximetry 93 98 Oxygen Delivery Method Room Air Room Air Oxygen Flow Rate 10/12/24 03:00 10/12/24 03:00 10/12/24 03:05 Temperature Pulse Rate 102 H Respiratory Rate 21 Blood Pressure 122/81 Pulse Oximetry 95 Oxygen Delivery Method Room Air Room Air Oxygen Flow Rate 10/12/24 03:15 10/12/24 03:15 10/12/24 04:00 Temperature 98.7 F Pulse Rate 95 H 93 H Respiratory Rate 20 18 Blood Pressure 122/79 Pulse Oximetry 92 94 Oxygen Delivery Method Oxygen Flow Rate 0 10/12/24 04:00 10/12/24 05:00 10/12/24 05:00 Temperature Pulse Rate 96 H Respiratory Rate 23 Blood Pressure 125/81 125/78 Pulse Oximetry 94 Oxygen Delivery Method Oxygen Flow Rate 0 10/12/24 06:00 10/12/24 06:00 Temperature Pulse Rate 97 H Respiratory Rate 15 Blood Pressure 118/71 Pulse Oximetry 95 Oxygen Delivery Method Oxygen Flow Rate 0 Oxygen Delivery Method Room Air Oxygen Flow Rate 0 Narrative Exam Narrative: GENERAL: The patient is not in any acute distressed. Awake and alert. HEENT: Nonicteric sclerae, PERRLA, EOMI. Oropharynx clear. Moist mucous membranes. Conjunctivae appear well perfused. HEART: Regular rate and rhythm without murmurs. No lower extremities edema. LUNGS: Clear to auscultation bilaterally. No wheezing, crackles or rhonchi ABDOMEN: Soft, positive bowel sounds, nontender. SKIN: No rash, no excessive bruising, petechiae, or purpura. NEUROLOGIC: AxO x 3. Cranial nerves II-XII intact without motor/sensory deficit. Objective Labs 10/12/24 05:44 10/12/24 05:44 Labs: Laboratory Results - last 24 hr 10/12/24 10/12/24 10/12/24 00:30 00:48 02:10 WBC 21.8 H RBC 5.38 Hgb 15.8 Hct 48.5 MCV 90.1 MCH 29.3 MCHC 32.5 RDW 13.9 Plt Count 368 Neut % (Auto) 34.2 L Lymph % (Auto) 44.7 H [place] % (Auto) 11.5 Eos % (Auto) 8.9 H Baso % (Auto) 0.7 Neut # (Auto) 7500 H Lymph # (Auto) 9700 H [place] # (Auto) 2500 H Eos # (Auto) 1900 H Baso # (Auto) 200 H D-Dimer 239 ABG Sample Site Left radial ABG pH 6.96 L* ABG pCO2 106.0 H* ABG pO2 132 H ABG HCO3 24 ABG Total CO2 26 ABG O2 Saturation 96 ABG Base Excess -11.4 L Jaquan Test Positive Sodium 140 137 Potassium 5.6 H 3.4 D Chloride 103 106 Carbon Dioxide 20 L 28 BUN 12 12 Creatinine 1.08 0.84 Estimated GFR > 60 > 60 BUN/Creatinine Ratio 11.1 14.3 Glucose 176 H 124 H Lactate 9.6 H* 1.5 Calcium 9.9 8.2 L Total Bilirubin 1.2 AST 40 ALT 30 Alkaline Phosphatase 88 Total Creatine Kinase 116 Troponin I < 0.012 NT-Pro-B Natriuret Pep 31 Total Protein 7.7 Albumin 4.6 Globulin 3.1 Albumin/Globulin Ratio 1.5 Lipase 42 Procalcitonin 0.053 Nasal Screen MRSA (PCR) 10/12/24 10/12/24 10/12/24 02:24 03:31 05:44 WBC 15.4 H RBC 4.92 Hgb 14.5 Hct 42.2 MCV 85.8 D MCH 29.5 MCHC 34.3 RDW 13.9 Plt Count 279 Neut % (Auto) 94.9 H D Lymph % (Auto) 3.9 L D [place] % (Auto) 1.0 L Eos % (Auto) 0.1 L Baso % (Auto) 0.1 Neut # (Auto) 22558 H Lymph # (Auto) 600 L [place] # (Auto) 200 Eos # (Auto) 0 Baso # (Auto) 0 D-Dimer ABG Sample Site ABG pH 7.38 ABG pCO2 40.9 ABG pO2 73 L ABG HCO3 24 ABG Total CO2 24 ABG O2 Saturation 94 L ABG Base Excess -1.3 Jaquan Test Sodium 138 Potassium 3.3 L Chloride 107 Carbon Dioxide 24 BUN 12 Creatinine 0.75 Estimated GFR > 60 BUN/Creatinine Ratio 16.0 Glucose 146 H Lactate Calcium 8.1 L Total Bilirubin 0.8 AST 40 ALT 29 Alkaline Phosphatase 99 Total Creatine Kinase Troponin I NT-Pro-B Natriuret Pep Total Protein 6.7 Albumin 3.8 Globulin 2.9 Albumin/Globulin Ratio 1.3 Lipase Procalcitonin Nasal Screen MRSA (PCR) Not detected Assessment & Plan Assessment & Plan narrative: Severe asthma exacerbation with possible reaction to inhalation of Fentanyl and also cat exposure. Admit the patient to ICU. Status post treatment as stated per HPI. Continue Solumedrol, duonebs Continue oxygen/bipap. Patient respiratory and mental status much improved now. Patient able to communincate well and is almost back to baseline. Elevated lactic acid likely from severe hypoxemia from above. Initially 9 now 1.5. No sign of infection. CXR clear. Acute respiratory failure with hypercapnea/hypoxemia with respiratory acidosis. Now resolved with above treatment. DVT prophylaxis SCDs. Code status Full code. Disposition likely home in two days. Time-Based Coding :: [TOTAL MINUTES] spent with patient and on the chart (including review of chart, obtaining history, exam, reviewing outside data, placing orders, documenting exam and treatment plan, and counseling patient) on [DATE].
[2024-10-12] MEDS: ALBUTEROL/IPRATROPIUM 3 ML AMPUL INH (07:34)
--- NOTE | 2024-10-12 08:04 | PM.HP.1 ---
History of Present Illness History of Present Illness Date Patient Seen: 10/12/24 Chief complaint: asthma Narrative: From night doctor: 34-year-old male with past medical history of asthma presents with respiratory distress and alter mental status. Per report the patient was brought in by his girlfriend. The patient states that he was at his mother house over the last two days. There at his mother house was a cat which usually can trigger his asthma attack. In addition, the patient was smoking fentanyl with his girlfriend. The patient states he then had difficulty breathing and his airway seems very tight. The patient was noted to have difficulty breathing when EMS arrived. Per report the patient was noted to have agonal respirations and cyanotic. The patient's pluse was noted to be in the 40s. Patient was immediately given Narcan with some improvement in his color but his breathing was still dyspneic. The patient was then given 20 mg as well as Epinephrine IM. Ketamin was also given as a bronchodilator. On arrival to our ER, lab shows a WBC of 21,000 hemoglobin 15 and platelets of 368. D dimer 239 sodium 140 potassium 5.6 chloride 103 BUN 12 and 1.08 glucose 176 troponin less than 0.012 and BMP of 31. Lactic acid 9. EKG shows sinus bradycardia but no signs of ST or T wave changes. ABG pH 6.96 PCO2 106 bicarb 24 and pO2 32 chest x-ray was clear. Patient was started on ketamine gtt as well as BiPAP placement. Patient did improve. Patient did pull off the BiPAP it was nauseous and Zofran was given.repeat shows at PO 7.38 PCO 40 PO 73 bicarb 23. S: Events as noted, this morning he was feeling better and is off from oxygen and has no dyspnea or pain. [facility] Medical History Gastric ulcer Sternal fracture Asthma Family History Other Family history non-contributory Social History household members: family Smoking Status: Never smoker alcohol intake: former substance use type: does not use Meds Home Medications and Allergies Home Medications Medication Instructions Recorded Confirmed Type albuterol sulfate 90 mcg/actuation 2 puff inhalation Q6H PRN wheezing 10/12/24 Rx aerosol inhaler #8.5 grams Allergies Allergy/AdvReac Type Severity Reaction Status Date / Time cat ravinder Allergy Intermediate Verified 03/29/24 23:47 Review of Systems Review of Systems Narrative: All else reviewed and otherwise unremarkable except as noted in the history and physical. Exam Vital Signs (past 8 hours): - 10/12/24 00:25 10/12/24 00:31 10/12/24 00:41 Temperature 96.9 F L Pulse Rate 101 H Respiratory Rate 63 H Blood Pressure 163/113 H Pulse Oximetry 96 Oxygen Delivery Method Aerosol Mask Oxygen Flow Rate 6 10/12/24 00:41 10/12/24 00:43 10/12/24 00:43 Temperature Pulse Rate 97 H 100 H Respiratory Rate 58 H 58 H Blood Pressure 162/99 H Pulse Oximetry 96 97 Oxygen Delivery Method Aerosol Mask Aerosol Mask Oxygen Flow Rate 6 10/12/24 00:45 10/12/24 00:45 10/12/24 00:50 Temperature Pulse Rate 95 H Respiratory Rate 68 H Blood Pressure 163/95 H 162/86 H Pulse Oximetry 93 Oxygen Delivery Method Aerosol Mask Oxygen Flow Rate 6 10/12/24 00:50 10/12/24 00:54 10/12/24 00:55 Temperature Pulse Rate 98 H 101 H Respiratory Rate 61 H 60 H Blood Pressure 165/92 H Pulse Oximetry 91 92 Oxygen Delivery Method Aerosol Mask Aerosol Mask Oxygen Flow Rate 6 6 10/12/24 00:58 10/12/24 01:00 10/12/24 01:00 Temperature Pulse Rate 115 H Respiratory Rate 45 H 44 H Blood Pressure 167/94 H Pulse Oximetry 99 99 Oxygen Delivery Method BiPAP BiPAP Oxygen Flow Rate 10/12/24 01:05 10/12/24 01:05 10/12/24 01:10 Temperature Pulse Rate 117 H 116 H Respiratory Rate 37 H 36 H Blood Pressure 157/89 H Pulse Oximetry 99 99 Oxygen Delivery Method BiPAP Oxygen Flow Rate 10/12/24 01:10 10/12/24 01:15 10/12/24 01:15 Temperature Pulse Rate 111 H Respiratory Rate 34 H Blood Pressure 142/94 H 145/92 H Pulse Oximetry 98 Oxygen Delivery Method BiPAP Oxygen Flow Rate 10/12/24 01:20 10/12/24 01:20 10/12/24 01:25 Temperature Pulse Rate 116 H Respiratory Rate 26 H Blood Pressure 146/98 H 140/88 Pulse Oximetry 99 Oxygen Delivery Method BiPAP Oxygen Flow Rate 10/12/24 01:25 10/12/24 01:26 10/12/24 01:28 Temperature Pulse Rate 119 H Respiratory Rate 21 Blood Pressure 131/85 Pulse Oximetry 97 Oxygen Delivery Method BiPAP Oxygen Flow Rate 4 10/12/24 01:30 10/12/24 01:30 10/12/24 01:35 Temperature Pulse Rate 114 H Respiratory Rate 32 H Blood Pressure 131/85 133/82 Pulse Oximetry 98 Oxygen Delivery Method BiPAP Oxygen Flow Rate 10/12/24 01:35 10/12/24 01:40 10/12/24 01:40 Temperature Pulse Rate 109 H 107 H Respiratory Rate 38 H 37 H Blood Pressure 130/85 Pulse Oximetry 98 98 Oxygen Delivery Method BiPAP BiPAP Oxygen Flow Rate 10/12/24 01:45 10/12/24 01:45 10/12/24 01:50 Temperature 97.7 F Pulse Rate 105 H Respiratory Rate 29 H Blood Pressure 129/82 138/82 Pulse Oximetry 99 Oxygen Delivery Method BiPAP Oxygen Flow Rate 10/12/24 01:50 10/12/24 01:55 10/12/24 01:55 Temperature Pulse Rate 104 H 101 H Respiratory Rate 30 H 31 H Blood Pressure 130/82 Pulse Oximetry 99 99 Oxygen Delivery Method Oxygen Flow Rate 10/12/24 02:00 10/12/24 02:00 10/12/24 02:05 Temperature Pulse Rate 102 H Respiratory Rate 29 H Blood Pressure 129/85 126/87 Pulse Oximetry 99 Oxygen Delivery Method BiPAP Oxygen Flow Rate 10/12/24 02:05 10/12/24 02:08 10/12/24 02:08 Temperature Pulse Rate 99 H 100 H Respiratory Rate 29 H 24 Blood Pressure 128/87 Pulse Oximetry 99 98 Oxygen Delivery Method BiPAP Oxygen Flow Rate 10/12/24 02:15 10/12/24 02:15 10/12/24 02:20 Temperature Pulse Rate 99 H Respiratory Rate 20 Blood Pressure 130/77 128/79 Pulse Oximetry 99 Oxygen Delivery Method Oxygen Flow Rate 10/12/24 02:20 10/12/24 02:25 10/12/24 02:25 Temperature Pulse Rate 102 H 97 H Respiratory Rate 23 22 Blood Pressure 130/85 Pulse Oximetry 96 98 Oxygen Delivery Method BiPAP BiPAP Oxygen Flow Rate 10/12/24 02:30 10/12/24 02:30 10/12/24 02:35 Temperature Pulse Rate 95 H Respiratory Rate 20 27 H Blood Pressure 119/86 Pulse Oximetry 98 94 Oxygen Delivery Method BiPAP BiPAP Oxygen Flow Rate 10/12/24 02:38 10/12/24 02:45 10/12/24 02:45 Temperature Pulse Rate 92 H Respiratory Rate 26 H Blood Pressure 121/83 Pulse Oximetry 93 98 Oxygen Delivery Method Room Air Room Air Oxygen Flow Rate 10/12/24 03:00 10/12/24 03:00 10/12/24 03:05 Temperature Pulse Rate 102 H Respiratory Rate 21 Blood Pressure 122/81 Pulse Oximetry 95 Oxygen Delivery Method Room Air Room Air Oxygen Flow Rate 10/12/24 03:15 10/12/24 03:15 10/12/24 04:00 Temperature 98.7 F Pulse Rate 95 H 93 H Respiratory Rate 20 18 Blood Pressure 122/79 Pulse Oximetry 92 94 Oxygen Delivery Method Oxygen Flow Rate 0 10/12/24 04:00 10/12/24 05:00 10/12/24 05:00 Temperature Pulse Rate 96 H Respiratory Rate 23 Blood Pressure 125/81 125/78 Pulse Oximetry 94 Oxygen Delivery Method Oxygen Flow Rate 0 10/12/24 06:00 10/12/24 06:00 10/12/24 07:36 Temperature Pulse Rate 97 H 92 H Respiratory Rate 15 16 Blood Pressure 118/71 Pulse Oximetry 95 96 Oxygen Delivery Method Room Air Oxygen Flow Rate 0 0 Oxygen Delivery Method Room Air Oxygen Flow Rate 0 Narrative Exam Narrative: NAD, alert and oriented, fluent speech, calm. Normocephalic skull, EOMI, anicteric sclera, symmetric pupils. Oropharynx unremarkable, no droop. Neck supple, midline trachea, no adenopathy. Lungs clear, normal rate and effort. No wheezing or respiratory difficulty. Heart regular, no murmur gallop or rub. Abdomen is soft, non distended and non tender. Extremities are free of edema. Skin is free of rash or lesions. Joints are not swollen or deformed. Judgment appears to be normal. Objective ECG Impression: Normal sinus rhythm Imaging Chest x-ray: Radiologist's impression: No acute pulmonary process. Labs 10/12/24 05:44 10/12/24 05:44 Labs: Laboratory Results - last 24 hr 10/12/24 10/12/24 10/12/24 00:30 00:48 02:10 WBC 21.8 H RBC 5.38 Hgb 15.8 Hct 48.5 MCV 90.1 MCH 29.3 MCHC 32.5 RDW 13.9 Plt Count 368 Neut % (Auto) 34.2 L Lymph % (Auto) 44.7 H [place] % (Auto) 11.5 Eos % (Auto) 8.9 H Baso % (Auto) 0.7 Neut # (Auto) 7500 H Lymph # (Auto) 9700 H [place] # (Auto) 2500 H Eos # (Auto) 1900 H Baso # (Auto) 200 H D-Dimer 239 ABG Sample Site Left radial ABG pH 6.96 L* ABG pCO2 106.0 H* ABG pO2 132 H ABG HCO3 24 ABG Total CO2 26 ABG O2 Saturation 96 ABG Base Excess -11.4 L Jaquan Test Positive Sodium 140 137 Potassium 5.6 H 3.4 D Chloride 103 106 Carbon Dioxide 20 L 28 BUN 12 12 Creatinine 1.08 0.84 Estimated GFR > 60 > 60 BUN/Creatinine Ratio 11.1 14.3 Glucose 176 H 124 H Lactate 9.6 H* 1.5 Calcium 9.9 8.2 L Total Bilirubin 1.2 AST 40 ALT 30 Alkaline Phosphatase 88 Total Creatine Kinase 116 Troponin I < 0.012 NT-Pro-B Natriuret Pep 31 Total Protein 7.7 Albumin 4.6 Globulin 3.1 Albumin/Globulin Ratio 1.5 Lipase 42 Procalcitonin 0.053 Nasal Screen MRSA (PCR) 10/12/24 10/12/24 10/12/24 02:24 03:31 05:44 WBC 15.4 H RBC 4.92 Hgb 14.5 Hct 42.2 MCV 85.8 D MCH 29.5 MCHC 34.3 RDW 13.9 Plt Count 279 Neut % (Auto) 94.9 H D Lymph % (Auto) 3.9 L D [place] % (Auto) 1.0 L Eos % (Auto) 0.1 L Baso % (Auto) 0.1 Neut # (Auto) 59996 H Lymph # (Auto) 600 L [place] # (Auto) 200 Eos # (Auto) 0 Baso # (Auto) 0 D-Dimer ABG Sample Site ABG pH 7.38 ABG pCO2 40.9 ABG pO2 73 L ABG HCO3 24 ABG Total CO2 24 ABG O2 Saturation 94 L ABG Base Excess -1.3 Jaquan Test Sodium 138 Potassium 3.3 L Chloride 107 Carbon Dioxide 24 BUN 12 Creatinine 0.75 Estimated GFR > 60 BUN/Creatinine Ratio 16.0 Glucose 146 H Lactate Calcium 8.1 L Total Bilirubin 0.8 AST 40 ALT 29 Alkaline Phosphatase 99 Total Creatine Kinase Troponin I NT-Pro-B Natriuret Pep Total Protein 6.7 Albumin 3.8 Globulin 2.9 Albumin/Globulin Ratio 1.3 Lipase Procalcitonin Nasal Screen MRSA (PCR) Not detected Assessment & Plan Assessment & Plan narrative: 1. Severe asthma exacerbation with possible reaction to inhalation of Fentanyl and also cat exposure. Present on admission and improving. -Admit the patient to ICU. Status post treatment as stated per HPI. Continue Solumedrol, duonebs Continue oxygen/bipap. Patient respiratory and mental status much improved now. Patient able to communincate well and is almost back to baseline. 2. Elevated lactic acid likely from severe hypoxemia from above. Present on admission and improving. -Initially 9 now 1.5. No sign of infection. CXR clear. 3. Acute respiratory failure with hypercapnea/hypoxemia with respiratory acidosis. -Present on admission and Now resolved with above treatment. 4. Fentanyl abuse, present on admission and active. PLAN: -wean infusions -wean off from oxygen -continue steroids and bronchodilators DVT prophylaxis SCDs. Code status Full code. Disposition likely home in two days. Time-Based Coding :: 35 min spent with patient and on the chart (including review of chart, obtaining history, exam, reviewing outside data, placing orders, documenting exam and treatment plan, and counseling patient) on 10/12. Quality MIPS - Admit I confirm the patient?s Advance Care Plan is present, Code status is documented, Surrogate decision maker is in patient?s record [If Yes, STOP here]: Yes MIPS - Meds 'Current medications' to include all prescriptions, [id number] products, herbals, cannabis/cannabidiol products, and vitamin/mineral/dietary (nutritional) supplements. I have utilized all available resources to obtain, update, or review the patient?s current medications. [If Yes, STOP here]: Yes
[2024-10-12] MEDS: PANTOPRAZOLE DR 40 MG TABLET PO (08:11)
[2024-10-12] MEDS: POTASSIUM CHLORIDE 20 MEQ TAB 40 MEQ PO (08:32)
--- NOTE | 2024-10-12 09:20 | PM.DS.1 ---
History of Present Illness History of Present Illness Chief complaint: asthma Narrative: From night doctor: 34-year-old male with past medical history of asthma presents with respiratory distress and alter mental status. Per report the patient was brought in by his girlfriend. The patient states that he was at his mother house over the last two days. There at his mother house was a cat which usually can trigger his asthma attack. In addition, the patient was smoking fentanyl with his girlfriend. The patient states he then had difficulty breathing and his airway seems very tight. The patient was noted to have difficulty breathing when EMS arrived. Per report the patient was noted to have agonal respirations and cyanotic. The patient's pluse was noted to be in the 40s. Patient was immediately given Narcan with some improvement in his color but his breathing was still dyspneic. The patient was then given 20 mg as well as Epinephrine IM. Ketamin was also given as a bronchodilator. On arrival to our ER, lab shows a WBC of 21,000 hemoglobin 15 and platelets of 368. D dimer 239 sodium 140 potassium 5.6 chloride 103 BUN 12 and 1.08 glucose 176 troponin less than 0.012 and BMP of 31. Lactic acid 9. EKG shows sinus bradycardia but no signs of ST or T wave changes. ABG pH 6.96 PCO2 106 bicarb 24 and pO2 32 chest x-ray was clear. Patient was started on ketamine gtt as well as BiPAP placement. Patient did improve. Patient did pull off the BiPAP it was nauseous and Zofran was given.repeat shows at PO 7.38 PCO 40 PO 73 bicarb 23. Discharge Providers Provider Date of admission: 10/12/24 03:04 Discharge Date: 10/12/24 Primary care physician: aJxon Joe MD Discharge provider: Jaquan Ramon MD Summary Hospital Course Discharge Diagnosis: 1. Severe asthma exacerbation with possible reaction to inhalation of Fentanyl and also cat exposure. Present on admission and resolved. 2. Elevated lactic acid likely from severe hypoxemia from above. Present on admission and resolved. -Initially 9 now 1.5. No sign of infection. CXR clear. 3. Acute respiratory failure with hypercapnea/hypoxemia with respiratory acidosis. Present on admission and resolved. -Present on admission and Now resolved with above treatment. 4. Fentanyl abuse, present on admission and resolved. Hospital Course: He was admitted with an apparent fentanyl overdose and respiratory distress as well as asthma exacerbation. He required interventions including fluids, BiPAP, and oxygen. He quickly improved and came off from BiPAP and oxygen. In the morning of discharge he was at baseline and felt well. We had a long discussion regarding the perils of smoking fentanyl with regard to or asthma exacerbation. He also discussed the empiric to the having naloxone with him and a 2nd person at all times given the high risk of overdose. In addition sounds as though his inhaler had recently become empty. I am going to send refills in for him lastly, recommended consideration of Suboxone Clinic given his history of fentanyl use and prior heroin use. Status at Discharge Cognitive/behavioral status at discharge: oriented Functional status at discharge: independent ambulation Overall status at discharge: patient is back to baseline Time Spent with Patient Time spent: Greater than 30 minutes Exam Vital Signs (past 8 hours): - 10/12/24 01:25 10/12/24 01:25 10/12/24 01:26 Temperature Pulse Rate 119 H Respiratory Rate 21 Blood Pressure 140/88 Pulse Oximetry 97 Oxygen Delivery Method BiPAP Oxygen Flow Rate 4 10/12/24 01:28 10/12/24 01:30 10/12/24 01:30 Temperature Pulse Rate 114 H Respiratory Rate 32 H Blood Pressure 131/85 131/85 Pulse Oximetry 98 Oxygen Delivery Method BiPAP Oxygen Flow Rate 10/12/24 01:35 10/12/24 01:35 10/12/24 01:40 Temperature Pulse Rate 109 H Respiratory Rate 38 H Blood Pressure 133/82 130/85 Pulse Oximetry 98 Oxygen Delivery Method BiPAP Oxygen Flow Rate 10/12/24 01:40 10/12/24 01:45 10/12/24 01:45 Temperature Pulse Rate 107 H 105 H Respiratory Rate 37 H 29 H Blood Pressure 129/82 Pulse Oximetry 98 99 Oxygen Delivery Method BiPAP BiPAP Oxygen Flow Rate 10/12/24 01:50 10/12/24 01:50 10/12/24 01:55 Temperature 97.7 F Pulse Rate 104 H Respiratory Rate 30 H Blood Pressure 138/82 130/82 Pulse Oximetry 99 Oxygen Delivery Method Oxygen Flow Rate 10/12/24 01:55 10/12/24 02:00 10/12/24 02:00 Temperature Pulse Rate 101 H 102 H Respiratory Rate 31 H 29 H Blood Pressure 129/85 Pulse Oximetry 99 99 Oxygen Delivery Method BiPAP Oxygen Flow Rate 10/12/24 02:05 10/12/24 02:05 10/12/24 02:08 Temperature Pulse Rate 99 H Respiratory Rate 29 H Blood Pressure 126/87 128/87 Pulse Oximetry 99 Oxygen Delivery Method BiPAP Oxygen Flow Rate 10/12/24 02:08 10/12/24 02:15 10/12/24 02:15 Temperature Pulse Rate 100 H 99 H Respiratory Rate 24 20 Blood Pressure 130/77 Pulse Oximetry 98 99 Oxygen Delivery Method Oxygen Flow Rate 10/12/24 02:20 10/12/24 02:20 10/12/24 02:25 Temperature Pulse Rate 102 H Respiratory Rate 23 Blood Pressure 128/79 130/85 Pulse Oximetry 96 Oxygen Delivery Method BiPAP Oxygen Flow Rate 10/12/24 02:25 10/12/24 02:30 10/12/24 02:30 Temperature Pulse Rate 97 H 95 H Respiratory Rate 22 20 Blood Pressure 119/86 Pulse Oximetry 98 98 Oxygen Delivery Method BiPAP BiPAP Oxygen Flow Rate 10/12/24 02:35 10/12/24 02:38 10/12/24 02:45 Temperature Pulse Rate Respiratory Rate 27 H Blood Pressure 121/83 Pulse Oximetry 94 93 Oxygen Delivery Method BiPAP Room Air Oxygen Flow Rate 10/12/24 02:45 10/12/24 03:00 10/12/24 03:00 Temperature Pulse Rate 92 H 102 H Respiratory Rate 26 H 21 Blood Pressure 122/81 Pulse Oximetry 98 95 Oxygen Delivery Method Room Air Room Air Oxygen Flow Rate 10/12/24 03:05 10/12/24 03:15 10/12/24 03:15 Temperature Pulse Rate 95 H Respiratory Rate 20 Blood Pressure 122/79 Pulse Oximetry 92 Oxygen Delivery Method Room Air Oxygen Flow Rate 10/12/24 04:00 10/12/24 04:00 10/12/24 05:00 Temperature 98.7 F Pulse Rate 93 H 96 H Respiratory Rate 18 23 Blood Pressure 125/81 Pulse Oximetry 94 94 Oxygen Delivery Method Oxygen Flow Rate 0 10/12/24 05:00 10/12/24 06:00 10/12/24 06:00 Temperature Pulse Rate 97 H Respiratory Rate 15 Blood Pressure 125/78 118/71 Pulse Oximetry 95 Oxygen Delivery Method Oxygen Flow Rate 0 0 10/12/24 07:36 Temperature Pulse Rate 92 H Respiratory Rate 16 Blood Pressure Pulse Oximetry 96 Oxygen Delivery Method Room Air Oxygen Flow Rate 0 Oxygen Delivery Method Room Air Oxygen Flow Rate 0 Narrative Exam Narrative: NAD, alert and oriented. Fluent speech. Lungs are clear, normal rate and effort. Heart is regular, no murmur gallop or rub. Abdomen is soft, non distended. Extremities are free of edema. Objective ECG Impression: Normal sinus rhythm Imaging Chest x-ray: Radiologist's impression: No acute changes. Labs 10/12/24 05:44 10/12/24 05:44 Labs: Laboratory Results - last 24 hr 10/12/24 10/12/24 10/12/24 00:30 00:48 02:10 WBC 21.8 H RBC 5.38 Hgb 15.8 Hct 48.5 MCV 90.1 MCH 29.3 MCHC 32.5 RDW 13.9 Plt Count 368 Neut % (Auto) 34.2 L Lymph % (Auto) 44.7 H Converse % (Auto) 11.5 Eos % (Auto) 8.9 H Baso % (Auto) 0.7 Neut # (Auto) 7500 H Lymph # (Auto) 9700 H Converse # (Auto) 2500 H Eos # (Auto) 1900 H Baso # (Auto) 200 H D-Dimer 239 ABG Sample Site Left radial ABG pH 6.96 L* ABG pCO2 106.0 H* ABG pO2 132 H ABG HCO3 24 ABG Total CO2 26 ABG O2 Saturation 96 ABG Base Excess -11.4 L Jaquan Test Positive Sodium 140 137 Potassium 5.6 H 3.4 D Chloride 103 106 Carbon Dioxide 20 L 28 BUN 12 12 Creatinine 1.08 0.84 Estimated GFR > 60 > 60 BUN/Creatinine Ratio 11.1 14.3 Glucose 176 H 124 H Lactate 9.6 H* 1.5 Calcium 9.9 8.2 L Total Bilirubin 1.2 AST 40 ALT 30 Alkaline Phosphatase 88 Total Creatine Kinase 116 Troponin I < 0.012 NT-Pro-B Natriuret Pep 31 Total Protein 7.7 Albumin 4.6 Globulin 3.1 Albumin/Globulin Ratio 1.5 Lipase 42 Procalcitonin 0.053 Nasal Screen MRSA (PCR) 10/12/24 10/12/24 10/12/24 02:24 03:31 05:44 WBC 15.4 H RBC 4.92 Hgb 14.5 Hct 42.2 MCV 85.8 D MCH 29.5 MCHC 34.3 RDW 13.9 Plt Count 279 Neut % (Auto) 94.9 H D Lymph % (Auto) 3.9 L D Converse % (Auto) 1.0 L Eos % (Auto) 0.1 L Baso % (Auto) 0.1 Neut # (Auto) 79865 H Lymph # (Auto) 600 L Converse # (Auto) 200 Eos # (Auto) 0 Baso # (Auto) 0 D-Dimer ABG Sample Site ABG pH 7.38 ABG pCO2 40.9 ABG pO2 73 L ABG HCO3 24 ABG Total CO2 24 ABG O2 Saturation 94 L ABG Base Excess -1.3 Jaquan Test Sodium 138 Potassium 3.3 L Chloride 107 Carbon Dioxide 24 BUN 12 Creatinine 0.75 Estimated GFR > 60 BUN/Creatinine Ratio 16.0 Glucose 146 H Lactate Calcium 8.1 L Total Bilirubin 0.8 AST 40 ALT 29 Alkaline Phosphatase 99 Total Creatine Kinase Troponin I NT-Pro-B Natriuret Pep Total Protein 6.7 Albumin 3.8 Globulin 2.9 Albumin/Globulin Ratio 1.3 Lipase Procalcitonin Nasal Screen MRSA (PCR) Not detected [facility] Medical History Gastric ulcer Sternal fracture Asthma Family History Other Family history non-contributory Social History household members: family Smoking Status: Never smoker alcohol intake: former substance use type: does not use Discharge Assessment & Plan Assessment and Plan Assessment: 1. Severe asthma exacerbation with possible reaction to inhalation of Fentanyl and also cat exposure. Present on admission and resolved. 2. Elevated lactic acid likely from severe hypoxemia from above. Present on admission and resolved. -Initially 9 now 1.5. No sign of infection. CXR clear. 3. Acute respiratory failure with hypercapnea/hypoxemia with respiratory acidosis. Present on admission and resolved. -Present on admission and Now resolved with above treatment. 4. Fentanyl abuse, present on admission and resolved. Plan of Treatment: Discharge home with close follow up with PCP and recommendations as noted above in the hospital course. Discharge Plan Discharge Plan Patient Disposition: Home Provider Discharge Comment: Stable for discharge home, or pulmonary symptoms have resolved Discharge orders & Medications Prescriptions: Continued albuterol sulfate 90 mcg/actuation HFA aerosol inhaler 2 puff inhalation Q6H PRN (Reason: wheezing) Qty: 8.5 2RF Discontinued albuterol sulfate 90 mcg/actuation HFA aerosol inhaler 2 puff inhalation Q6H PRN (Reason: shortness of breath or wheezing) Qty: 8.5 1RF albuterol sulfate [Ventolin HFA] 90 mcg/actuation HFA aerosol inhaler 2 puff inhalation Q6H PRN (Reason: shortness of breath or wheezing) Qty: 8.5 2RF albuterol sulfate 90 mcg/actuation HFA aerosol inhaler 2 puff inhalation Q6H PRN (Reason: shortness of breath or wheezing) Qty: 8.5 0RF albuterol sulfate 90 mcg/actuation HFA aerosol inhaler 2 puff inhalation Q4-6H PRN (Reason: shortness of breath or wheezing) Qty: 8.5 2RF albuterol sulfate 90 mcg/actuation HFA aerosol inhaler 2 puff inhalation Q6H PRN (Reason: shortness of breath or wheezing) Qty: 8.5 2RF Medication counseling provided by Pharmacist: No Follow up/Referrals: Jaxon Joe MD [Primary Care Provider] - Miscellaneous,DoctorMD [Non-Staff] - Discharge Health Status Multidrug resistant organism: No MDRO Diet/Activity/Treatments Diet: Regular Activity: As tolerated. Visit Report/Discharge Packet Instructions: DI for Asthma -- Adult, Naloxone for Opiate Overdose - [facility] Stand Alone Forms: Patient Portal/API, Naloxone Standing Order NHDO Discharge Data Primary Care Provider: Jaxon Joe Attending Provider: Micha Choudhury Admit Date/Time: 10/12/24 03:04
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
== END 2024-10-12 10:43 | disposition home or self-care (01) ==
LOC: ED 03:04 → ICU 06:34 → AC 12:06 → ICU 12:06
PROVIDERS: Admitting Provider Internal Medicine; Emergency Provider Emergency Medicine; PCP Internal Medicine; Referring Provider Emergency Medicine; Visit Provider Internal Medicine
DX: J96.01 Acute respiratory failure with hypoxia (principal); J96.02 Acute respiratory failure with hypercapnia; E87.29 Other acidosis; F19.10 Other psychoactive substance abuse, uncomplicated; J45.51 Severe persistent asthma with (acute) exacerbation
CPT/HCPCS: 36415; 36600; 71045; 80048; 80053; 82550; 82805; 82962; 83605; 83690; 83880; 84145; 84484; 85025; 85379; 87040; 87797; 93005; 94640; 94660; 96365; 96372; 96375; 99285; 99291; 99292; G0378; J0171; J2310; J2919; J3475; J7613

== ENCOUNTER 2024-10-16 01:20 | Emergency (ER) | payer OTHER, MEDICAID, SELFPAY ==
[2024-10-12 01:28] VITALS: PULSE 110; RESP 33; O2SAT 98
[2024-10-12 03:05] VITALS: BMI 24.0
[2024-10-16 01:26] VITALS: BP 145/108; PULSE 121; RESP 21; TEMP 36.7; O2SAT 93; BMI 21.7
[2024-10-16 01:32] VITALS: PULSE 101; RESP 24; O2SAT 96
--- NOTE | 2024-10-16 01:32 | ED.GENADULT ---
HPI - General Adult General Chief complaint: Shortness of Breath/Dyspnea Stated complaint: asthma attack Time Seen by Provider: 10/16/24 01:31 Source: patient Mode of arrival: Ambulatory History of Present Illness HPI narrative: Patient is a 34-year-old male. Has a history of asthma. Has run out of his home albuterol inhaler. He has a refill this medication at the pharmacy but states he can not get it refilled until the of the per his insurance. He was admitted to the hospital recently and discharged 4 days ago. Review of the medical record shows that this was related to an overdose and also asthma. He was not currently on steroids. He stated that he had an acute onset of his shortness of breath earlier this evening. Did not have his inhaler to use which brought him to the emergency department. Related Data Previous Rx's Medication Instructions Recorded albuterol sulfate 90 mcg/actuation 2 puff inhalation Q6H PRN wheezing 10/12/24 aerosol inhaler #8.5 grams prednisone 20 mg tablet 20 mg PO DAILY 5 days #5 tabs 10/16/24 Allergies Allergy/AdvReac Type Severity Reaction Status Date / Time cat dander Allergy Intermediate Verified 03/29/24 23:47 Review of Systems Review of Systems Narrative: See HPI Patient History Medical History Gastric ulcer Sternal fracture Asthma Family History Other Family history non-contributory Social History household members: family Smoking Status: Never smoker alcohol intake: former substance use type: does not use Smoking Status: Never smoker alcohol intake frequency: other Substance Use Type: amphetamines and opiates Exam Initial Vital Signs Initial Vital Signs: Vital Signs Temperature 98.1 F 10/16/24 01:26 Pulse Rate 121 H 10/16/24 01:26 Respiratory Rate 21 10/16/24 01:26 Blood Pressure 145/108 H 10/16/24 01:26 Pulse Oximetry 93 10/16/24 01:26 Oxygen Delivery Method Room Air 10/16/24 01:26 Const General: cooperative and comfortable Resp Effort & Inspection: cough, labored, no retractions and tachypneic Auscultation: wheezes Cardio Rate: regular rate Rhythm: regular rhythm GI Inspection: normal to inspection Skin General: no rashes or lesions noted Course Orders Ordered: ED Orders 10/16/24 01:38 RT Consult Eval and Treat NOW Discontinued Medications Albuterol (Albuterol 2.5 Mg/3 Ml Neb (Adult)) 2.5 mg INH NOW ONE Stop: 10/16/24 01:38 Last Admin: 10/16/24 01:40 Dose: 2.5 mg Documented By: SHAUNA Albuterol (Albuterol Hfa Prepack) 1 box MISC DIRECTED ONE Stop: 10/16/24 02:27 Last Admin: 10/16/24 02:40 Dose: 1 box Documented By: WENDY Albuterol/Ipratropium (Albuterol/Ipratropium 3 Ml Ampul) 9 ml INH NOW ONE Stop: 10/16/24 01:37 Last Admin: 10/16/24 01:39 Dose: 9 ml Documented By: SHAUNA Prednisone (Prednisone 20 Mg Tablet) 20 mg PO NOW ONE Stop: 10/16/24 02:27 Last Admin: 10/16/24 02:40 Dose: 20 mg Documented By: WENDY Vital Signs Vital signs: Vital Signs - 8 hr 10/16/24 01:26 10/16/24 01:32 Temperature 98.1 F Pulse Rate 121 H 101 H Respiratory Rate 21 24 Blood Pressure 145/108 H Pulse Oximetry 93 96 Oxygen Delivery Method Room Air Room Air Fraction of Inspired Oxygen 21 Medical Decision Making MDM Narrative Medical decision making narrative: After nebulizer treatment here in the emergency department he states he feels ?1000?% better. After nebulizer treatment lungs are now clear. Oxygen saturations were in the low 90s. He was given an albuterol MDI prepack to take home. He was given a dose of steroids here in the ER and will send him home with steroids for the next couple days. He has a history of an overdose. He confirmed that he does have Narcan at home to use if needed. This does not seem to be an issue with today's presentation. Patient was given return precautions. He expressed understanding and agreement. Discharge Plan Departure Patient Disposition: Home Clinical Impression: Asthma exacerbation Instructions: DI for Asthma -- Adult Activity Restrictions/Additional Instructions: Use the albuterol inhaler as needed and as directed. Take the steroids that were sent to [facility] as directed. Return to the emergency department for new or worsening symptoms. Prescriptions: New prednisone 20 mg tablet 20 mg PO DAILY 5 Days Qty: 5 0RF No Action albuterol sulfate 90 mcg/actuation HFA aerosol inhaler 2 puff inhalation Q6H PRN (Reason: wheezing) Qty: 8.5 2RF Stand Alone Forms: Patient Portal/API/Survey
[2024-10-16] MEDS: ALBUTEROL/IPRATROPIUM 3 ML AMPUL 9 ML INH (01:39)
[2024-10-16] MEDS: ALBUTEROL 2.5 MG/3 ML NEB (ADULT) INH (01:40)
[2024-10-16 02:33] VITALS: PULSE 89; O2SAT 91
[2024-10-16] MEDS: predniSONE 20 MG TABLET PO (02:40)
[2024-10-16] MEDS: ALBUTEROL HFA PREPACK 1 BOX MISC (02:40)
[2024-10-16 03:00] VITALS: PULSE 85; O2SAT 92
[2024-10-16 03:17] VITALS: BP 123/96; PULSE 91; RESP 18; TEMP 36.8; O2SAT 94
== END 2024-10-16 03:18 | disposition home or self-care (01) ==
PROVIDERS: Emergency Provider Emergency Medicine
DX: J45.901 Unspecified asthma with (acute) exacerbation (principal)
CPT/HCPCS: 94640; 99283; 99284; J7613

== ENCOUNTER 2024-11-03 11:21 | Emergency (ER) | payer OTHER, SELFPAY ==
[2024-10-12 01:28] VITALS: PULSE 110; RESP 33; O2SAT 98
[2024-10-12 03:05] VITALS: BMI 24.0
[2024-11-03 11:22] VITALS: BP 187/113; PULSE 108; RESP 24; TEMP 36.8; O2SAT 96; BMI 22.2
[2024-11-03] MEDS: ALBUTEROL/IPRATROPIUM 3 ML AMPUL INH ×3 (11:33)
[2024-11-03 11:34] VITALS: PULSE 105; RESP 18; O2SAT 94
--- NOTE | 2024-11-03 11:37 | ED.ASTHMA ---
HPI - Asthma General Chief Complaint: Asthma Stated Complaint: per pt asthma attack Time Seen by Provider: 11/03/24 11:23 Source: patient Mode of arrival: Ambulatory History of Present Illness HPI Narrative: 34-year-old male. Has a history of asthma. Is also allergic to cats. He was out of his inhaler. He states he was at his mother's house this morning and woke up having shortness of breath and wheezing. He was out of his inhaler. His insurance only covers 1 of these a month. He does not have a primary care doctor. Denies fevers. Related Data Previous Rx's Medication Instructions Recorded albuterol sulfate 90 mcg/actuation 2 puff inhalation Q6H PRN wheezing 10/12/24 aerosol inhaler #8.5 grams albuterol sulfate 2.5 mg/0.5 mL 5 mg inhalation Q6H PRN shortness 11/03/24 solution for nebulization of breath or wheezing #30 ea albuterol sulfate 90 mcg/actuation 2 puff inhalation Q4-6H PRN 11/03/24 aerosol inhaler shortness of breath or wheezing #8.5 grams prednisone 20 mg tablet 20 mg PO DAILY 4 days #4 tabs 11/03/24 Allergies Allergy/AdvReac Type Severity Reaction Status Date / Time cat dander Allergy Intermediate Verified 11/03/24 11:29 Review of Systems Review of Systems ROS Unobtainable: All systems reviewed & are unremarkable except as noted in HPI and below Patient History Medical History Gastric ulcer Sternal fracture Asthma Family History Other Family history non-contributory Social History household members: family Smoking Status: Never smoker alcohol intake: former substance use type: does not use Smoking Status: Never smoker alcohol intake frequency: other Exam Initial Vital Signs Initial Vital Signs: Vital Signs Temperature 98.2 F 11/03/24 11:22 Pulse Rate 108 H 11/03/24 11:22 Respiratory Rate 24 11/03/24 11:22 Blood Pressure 187/113 H 11/03/24 11:22 Pulse Oximetry 96 11/03/24 11:22 Oxygen Delivery Method Room Air 11/03/24 11:22 Const General: cooperative and No ill appearing Resp Effort & Inspection: cough and tachypneic Auscultation: clear to auscultation bilaterally and wheezes Cardio Rate: tachycardic Rhythm: regular rhythm Skin General: no rashes or lesions noted Neuro General: patient alert, patient awake and moves all extremities Extrem General: No edema Course Orders Ordered: Discontinued Medications Albuterol/Ipratropium (Albuterol/Ipratropium 3 Ml Ampul) 3 ml INH Q20M ANDREA Stop: 11/03/24 12:11 Last Admin: 11/03/24 11:33 Dose: 3 ml Documented By: Admin: 11/03/24 11:33 Dose: 3 ml Documented By: Admin: 11/03/24 11:33 Dose: 3 ml Documented By: SALINA Prednisone (Prednisone 20 Mg Tablet) 20 mg PO NOW ONE Stop: 11/03/24 11:25 Last Admin: 11/03/24 11:42 Dose: 20 mg Documented By: CONCHITA Vital Signs Vital signs: Vital Signs - 8 hr 11/03/24 11:22 11/03/24 11:34 Temperature 98.2 F Pulse Rate 108 H 105 H Respiratory Rate 24 18 Blood Pressure 187/113 H Pulse Oximetry 96 94 Oxygen Delivery Method Room Air Room Air MDM - Asthma MDM Narrative Medical decision making narrative: After is nebulizer treatments he states that he was back to normal. He did not feel like he needed more treatments. I stressed the importance of establishing a primary care doctor given his presentation. He states he was going to buy a nebulizer [id number] so I will give him a prescription for albuterol. I will refill his MDI as well. He was given return precautions. He expressed understanding and agreement. Discharge Plan Departure Patient Disposition: Home Clinical Impression: Asthma exacerbation Instructions: DI for Asthma -- Adult Activity Restrictions/Additional Instructions: You do need a primary care doctor. You can contact [phone] during business hours to help he was establish a primary provider. Take all of the medications as directed. Return to the emergency department for new or worsening symptoms. Prescriptions: New albuterol sulfate 2.5 mg/0.5 mL solution for nebulization 5 mg inhalation Q6H PRN (Reason: shortness of breath or wheezing) Qty: 30 2RF prednisone 20 mg tablet 20 mg PO DAILY 4 Days Qty: 4 0RF albuterol sulfate 90 mcg/actuation HFA aerosol inhaler 2 puff inhalation Q4-6H PRN (Reason: shortness of breath or wheezing) Qty: 8.5 3RF No Action albuterol sulfate 90 mcg/actuation HFA aerosol inhaler 2 puff inhalation Q6H PRN (Reason: wheezing) Qty: 8.5 2RF Stand Alone Forms: Patient Portal/API/Survey
[2024-11-03] MEDS: predniSONE 20 MG TABLET PO (11:42)
[2024-11-03 12:34] VITALS: BP 126/77; PULSE 105; O2SAT 95
== END 2024-11-03 12:34 | disposition home or self-care (01) ==
PROVIDERS: Emergency Provider Emergency Medicine
DX: J45.901 Unspecified asthma with (acute) exacerbation (principal)
CPT/HCPCS: 36415; 94150; 99284

== ENCOUNTER 2025-01-22 21:50 | Emergency (ER) | payer OTHER, SELFPAY ==
[2024-10-12 01:28] VITALS: PULSE 110; RESP 33; O2SAT 98
[2024-10-12 03:05] VITALS: BMI 24.0
[2025-01-22 21:54] VITALS: O2SAT 94
[2025-01-22 21:55] VITALS: BP 134/91; PULSE 114; O2SAT 94
[2025-01-22 21:56] VITALS: BP 134/91; PULSE 122; RESP 18; TEMP 36.7; O2SAT 93; BMI 20.9
[2025-01-22 22:00] VITALS: BP 132/78; PULSE 102; PULSE 99; RESP 18; RESP 20; O2SAT 94; O2SAT 95
[2025-01-22] MEDS: ALBUTEROL/IPRATROPIUM 3 ML AMPUL INH (22:00)
--- NOTE | 2025-01-22 22:10 | ED_ITS ---
HPI - Asthma General Chief Complaint: Asthma Stated Complaint: asthma Time Seen by Provider: 01/22/25 22:02 Source: patient Mode of arrival: Ambulatory History of Present Illness HPI Narrative: 34-year-old male with history of known cat allergies, having taking care of family pet cat, feels more short of breath, ran out of his inhaler medication. No fevers or chills or cough. Requests refill of medications. No chest pain. No recent illness symptoms. Related Data Previous Rx's Medication Instructions Recorded albuterol sulfate 90 mcg/actuation 2 puff inhalation Q6H PRN wheezing 10/12/24 aerosol inhaler #8.5 grams albuterol sulfate 2.5 mg/0.5 mL 5 mg inhalation Q6H PRN shortness 11/03/24 solution for nebulization of breath or wheezing #30 ea albuterol sulfate 90 mcg/actuation 2 puff inhalation Q4-6H PRN 11/03/24 aerosol inhaler shortness of breath or wheezing #8.5 grams Allergies Allergy/AdvReac Type Severity Reaction Status Date / Time cat dander Allergy Intermediate Verified 01/22/25 21:56 Patient History Medical History Gastric ulcer Sternal fracture Asthma Family History Other Family history non-contributory Social History household members: family Smoking Status: Never smoker alcohol intake: former substance use type: does not use Smoking Status: Never smoker alcohol intake frequency: other Exam Narrative Exam Narrative: GENERAL: Well-developed patient, in mild distress. HEAD: Atraumatic. Normocephalic. EYES: Pupils equal round and reactive. Extraocular motions intact. No scleral icterus. No injection or drainage. ENT: Nose without bleeding, purulent drainage. Airway patent. NECK: Trachea midline, without obvious abnormal anterior neck masses. CARDIOVASCULAR: Regular rate and rhythm without murmurs, gallops, or rubs. RESPIRATORY: Clear to auscultation. Breath sounds equal bilaterally. No wheezes, rales, or rhonchi. GASTROINTESTINAL: Abdomen soft, non-tender, nondistended. EXTREMITIES: No edema or joint tenderness. BACK: Nontender without deformity or crepitance. No flank tenderness. NEURO: AOx3. Motor functions grossly nonfocal SKIN: No rash or erythema of visible areas Initial Vital Signs Initial Vital Signs: Vital Signs Pulse Oximetry 94 01/22/25 21:54 Course Orders Ordered: Discontinued Medications Albuterol (Albuterol Hfa Prepack) 1 box MISC DIRECTED ONE Stop: 01/22/25 22:14 Last Admin: 01/22/25 22:20 Dose: 1 box Albuterol/Ipratropium (Albuterol/Ipratropium 3 Ml Ampul) 3 ml INH NOW ONE Stop: 01/22/25 21:57 Last Admin: 01/22/25 22:00 Dose: 3 ml Documented By: JOANNA Vital Signs Vital signs: Vital Signs - 8 hr 01/22/25 21:54 01/22/25 21:55 01/22/25 21:55 Temperature Pulse Rate 114 H Respiratory Rate Blood Pressure 134/91 H Pulse Oximetry 94 94 Oxygen Delivery Method Oxygen Flow Rate Fraction of Inspired Oxygen 01/22/25 21:56 01/22/25 22:00 01/22/25 22:00 Temperature 98.1 F Pulse Rate 122 H 102 H 99 H Respiratory Rate 18 18 Blood Pressure 134/91 H Pulse Oximetry 93 94 95 Oxygen Delivery Method Room Air Room Air Oxygen Flow Rate 0 Fraction of Inspired Oxygen 21 01/22/25 22:00 Temperature Pulse Rate Respiratory Rate 20 Blood Pressure 132/78 Pulse Oximetry Oxygen Delivery Method Oxygen Flow Rate Fraction of Inspired Oxygen MDM - Asthma MDM Narrative Medical decision making narrative: 34-year-old male with history of asthma, taking care of family cat, history of cat allergies using inhaler, ran out of his inhaler, feels more short of breath. After triage given breathing treatment nebulized albuterol. On my exam patient had no wheeze, speaking in full sentences, had already been given breathing treatment. Refill albuterol inhaler given, has spacer at home, instructed 2 puffs 4 times daily while around the cats. Improved, discharged home. Return precautions discussed. Discharge Plan Departure Patient Disposition: Home Clinical Impression: Reactive airway disease, Medication refill, Allergy to cats Instructions: DI for Asthma -- Adult Activity Restrictions/Additional Instructions: Mr Ware. You were requested refill of your albuterol, having increased morales rtness of breath with your history of asthma having to take care of a cat while your family members away, with history of known allergy to cats. He had been using her inhaler which has been effective, however you ran out of your inhaler earlier today. Given nebulized breathing treatment albuterol in the emergency department with improved symptoms. On my examination I could not hear any wheezes but I have listened to after you have already had your albuterol breathing treatment. We gave you a refill of your albuterol inhaler. You have spacer to use at home. Consider use of albuterol with spacer 2 puffs 4 times daily for the next few days while around cats to which you are known to be allergic. Recheck with your regular doctor if you are not having relief with inhaler. Return to this/nearest emergency department for any change worsening symptoms or any concerns prior. Prescriptions: No Action albuterol sulfate 90 mcg/actuation HFA aerosol inhaler 2 puff inhalation Q6H PRN (Reason: wheezing) Qty: 8.5 2RF albuterol sulfate 2.5 mg/0.5 mL solution for nebulization 5 mg inhalation Q6H PRN (Reason: shortness of breath or wheezing) Qty: 30 2RF albuterol sulfate 90 mcg/actuation HFA aerosol inhaler 2 puff inhalation Q4-6H PRN (Reason: shortness of breath or wheezing) Qty: 8.5 3RF Referrals: Miscellaneous,Doctor, MD [Primary Care Provider] - Stand Alone Forms: Patient Portal/API/Survey
[2025-01-22] MEDS: ALBUTEROL HFA PREPACK 1 BOX MISC (22:20)
== END 2025-01-22 22:24 | disposition home or self-care (01) ==
PROVIDERS: Emergency Provider Emergency Medicine
DX: J45.909 Unspecified asthma, uncomplicated (principal); Z76.0 Encounter for issue of repeat prescription; J30.81 Allergic rhinitis due to animal (cat) (dog) hair and dander
CPT/HCPCS: 94640; 99283

== ENCOUNTER 2025-08-28 07:15 | Emergency (ER) | payer OTHER, SELFPAY ==
[2024-10-12 01:28] VITALS: PULSE 110; RESP 33; O2SAT 98
[2024-10-12 03:05] VITALS: BMI 24.0
[2025-08-28 07:21] VITALS: BP 136/70; PULSE 104; RESP 26; TEMP 36.6; O2SAT 96; BMI 25.1
[2025-08-28 07:35] VITALS: PULSE 111; RESP 22; O2SAT 96
[2025-08-28] MEDS: ALBUTEROL 2.5 MG/3 ML NEB (ADULT) INH (07:35)
[2025-08-28 07:48] VITALS: PULSE 104; RESP 20; O2SAT 96
[2025-08-28] MEDS: ALBUTEROL HFA PREPACK 1 BOX MISC (07:48)
--- NOTE | 2025-08-28 08:00 | ED_ITS ---
HPI - SOB/Dyspnea General Chief Complaint: Shortness of Breath/Dyspnea Stated Complaint: Having An asthma attack. Time Seen by Provider: 08/28/25 07:51 Source: patient Mode of arrival: Ambulatory Limitations: no limitations History of Present Illness HPI Narrative: Patient is a 35-year-old male history of asthma, and fentanyl overdose 1 year ago presenting today with shortness of breath. He reports he is allergic to cats he woke up with a CAT on his chest he is out of his albuterol nebulizer and his inhaler. He has since received 1 albuterol treatment in the ED and overall feels much better. He denies any chest pain no fever no chills overall feeling much better. He is speaking in full sentences. Reports that he has a almost been intubated in the past but has not actually been intubated for his asthma. He was admitted a year ago for a fentanyl overdose and possible asthma exacerbation. Related Data Previous Rx's ?Medication ?Instructions ?Recorded albuterol sulfate 90 mcg/actuation 2 puff inhalation Q 6H PRN wheezing 10/12/24 aerosol inhaler #8.5 grams albuterol sulfate 2.5 mg/0.5 mL 5 mg inhalation Q6H DE N shortness 11/03/24 solution for nebulization of breath or wheezing #30 ea albuterol sulfate 90 mcg/actuation 2 puff inhalation Q 4-6H PRN 11/03/24 aerosol inhaler shortness of breath or wheez ing #8.5 grams albuterol sulfate 2.5 mg/3 mL 2.5 mg (3 mL) inhalation QID PRN 08/28/25 (0.083 %) solution for nebulization bronchospasm #75 m L albuterol sulfate 90 mcg/actuation 2 puff inhalation Q 4-6H PRN 08/28/25 aerosol inhaler shortness of breath or wheez ing #8.5 grams Allergies Allergy/AdvReac Type Severity Reaction Status Date / Time cat dander Allergy Intermediate Verified 08/28/25 07:21 Patient History Medical History Gastric ulcer Sternal fracture Asthma Family History Other Family history non-contributory Social History household members: family alcohol intake: former substance use type: does not use Smoking Status: Former smoker alcohol intake frequency: other Exam Initial Vital Signs Initial Vital Signs: Vital Signs Temperature 97.9 F 08/28/25 07:21 Pulse Rate 104 H 08/28/25 07:21 Respiratory Rate 26 H 08/28/25 07:21 Blood Pressure 136/70 08/28/25 07:21 Pulse Oximetry 96 08/28/25 07:21 Oxygen Delivery Method Room Air 08/28/25 07:21 GENERAL: Alert well-appearing 35-year-old male and in no acute distress. HEENT: Head atraumatic,EOMI, pupils reactive, face symmetric, moist mucous membranes CARDIOVASCULAR: Regular rate and rhythm without murmurs, rubs or gallops. Speaking in full sentences without respiratory distress RESPIRATORY: Breath sounds equal bilaterally, no wheezes rales or rhonchi. ABDOMEN: Soft, nontender. Normoactive bowel sounds all 4 quadrants. No guarding or rebound. EXTREMITIES: Normal range of motion, no clubbing or edema. Neurovascularly intact NEUROLOGICAL: Alert and oriented x4.Normal gait and speech. Cranial nerves II through XII grossly intact. SKIN: Warm, dry, no laceration, no petechiae, no rashes or lesions. Course Orders Ordered: Discontinued Medications Albuterol (Albuterol 2.5 Mg/3 Ml Neb (Adult)) 2.5 mg INH NOW ONE Stop: 08/28/25 07:33 Last Admin: 08/28/25 07:35 Dose: 2.5 mg Documented By: PASQUALE Albuterol (Albuterol Hfa Prepack) 1 box MISC DIRECTED ONE Stop: 08/28/25 07:46 Last Admin: 08/28/25 07:48 Dose: 1 box Documented By: PASQUALE Vital Signs Vital signs: Vital Signs - 8 hr 08/28/25 07:21 08/28/25 07:35 08/28/25 07:48 Temperature 97.9 F Pulse Rate 104 H 111 H 104 H Respiratory Rate 26 H 22 20 Blood Pressure 136/70 Pulse Oximetry 96 96 96 Oxygen Delivery Method Room Air Room Air Room Air Oxygen Flow Rate 0 0 Fraction of Inspired Oxygen 21 21 MDM - SOB/Dyspnea MDM Narrative Medical decision making narrative: Patient 35-year-old male history of asthma presenting today with shortness of breath. This does appear to be asthma exacerbation due to out of medication. Cornelio gallardo quickly improved after 1 treatment. He is given an MDI here in the emergency department along with prescriptions. Breath sounds are clear speaking in full sentences. Does not need any further treatment or steroids at this time. This does not appear to be infectious due to its acute onset. Discharge Plan Departure Patient Disposition: Home Clinical Impression: Asthma exacerbation Instructions: DI for Asthma -- Adult Activity Restrictions/Additional Instructions: *You have been diagnosed with asthma exacerbation *What to do: At this time tried to avoid cats as best as possible *Continue to take medications as directed Albuterol 1-2 puffs every 4 hours if needed for shortness of (use only inhaler or nebulizer they are the same medication) *Follow up with your primary care provider in 2-3 days or call [phone] *Return to ER if you should have increasing chest pain shortness of breath weak [or] any new, worsening or concerning symptoms Prescriptions: New albuterol sulfate 2.5 mg /3 mL (0.083 %) solution for nebulization 2.5 mg inhalation QID PRN (Reason: bronchospasm) Qty: 75 0RF albuterol sulfate 90 mcg/actuation HFA aerosol inhaler 2 puff INHALATION Q4-6H PRN (Reason: shortness of breath or wheezing) Qty: 8.5 0RF No Action albuterol sulfate 90 mcg/actuation HFA aerosol inhaler 2 puff inhalation Q6H PRN (Reason: wheezing) Qty: 8.5 2RF albuterol sulfate 2.5 mg/0.5 mL solution for nebulization 5 mg inhalation Q6H PRN (Reason: shortness of breath or wheezing) Qty: 30 2RF albuterol sulfate 90 mcg/actuation HFA aerosol inhaler 2 puff inhalation Q4-6H PRN (Reason: shortness of breath or wheezing) Qty: 8.5 3RF Stand Alone Forms: Patient Portal/API
== END 2025-08-28 08:16 | disposition home or self-care (01) ==
PROVIDERS: Emergency Provider Emergency Medicine
DX: J45.901 Unspecified asthma with (acute) exacerbation (principal)
CPT/HCPCS: 94640; 99283; J7613

== ENCOUNTER 2025-10-15 21:55 | Emergency (ER) | payer OTHER, SELFPAY ==
[2024-10-12 01:28] VITALS: PULSE 110; RESP 33; O2SAT 98
[2024-10-12 03:05] VITALS: BMI 24.0
[2025-10-15 22:08] VITALS: BP 132/85; PULSE 97; RESP 20; TEMP 36.4; O2SAT 99; BMI 24.0
--- NOTE | 2025-10-15 22:09 | ED.SOB ---
HPI - SOB/Dyspnea General Chief Complaint: Shortness of Breath/Dyspnea Stated Complaint: Asthma attack Time Seen by Provider: 10/15/25 22:06 History of Present Illness HPI Narrative: Patient is a 35-year-old male with a past medical history of asthma comes into the ED from home for evaluation of asthma exacerbation, he states that cats 10 to cause a an exacerbation of this, he states that he was exposed to this an hour ago at his parent's house, he states that he ran out of his albuterol inhaler and therefore came into the ED for further evaluation treatment. At time of initial evaluation patient is speaking in short sentences but protecting airway, he has significant amount of wheezes, but he is protecting his airway no voice changes no stridor no trismus, he is not requiring supplemental oxygen. He denies any other symptoms such as headache visual disturbances chest pain fever chills nausea vomiting abdominal pain or any other GI/ symptoms at this time. Related Data Previous Rx's ?Medication ?Instructions ?Recorded albuterol sulfate 90 mcg/actuation 2 puff inhalation Q6H PRN wheezing 10/12/24 aerosol inhaler #8.5 grams albuterol sulfate 2.5 mg/0.5 mL 5 mg inhalation Q6H PRN shortness 11/03/24 solution for nebulization of breath or wheezing #30 ea albuterol sulfate 90 mcg/actuation 2 puff inhalation Q4-6H PRN 11/03/24 aerosol inhaler shortness of breath or wheezing #8.5 grams albuterol sulfate 2.5 mg/3 mL 2.5 mg (3 mL) inhalation QID PRN 08/28/25 (0.083 %) solution for nebulization bronchospasm #75 mL albuterol sulfate 90 mcg/actuation 2 puff inhalation Q4-6H PRN 08/28/25 aerosol inhaler shortness of breath or wheezing #8.5 grams albuterol sulfate 90 mcg/actuation 2 inh inhalation QID PRN shortness 10/15/25 breath activated powder inhaler of breath or wheezing #1 ea prednisone 20 mg tablet 20 mg PO BID 5 days #10 tabs 10/15/25 Allergies Allergy/AdvReac Type Severity Reaction Status Date / Time cat dander Allergy Intermediate Verified 10/15/25 22:08 Review of Systems Review of Systems Narrative: General: Denies fever, chills, weight loss HEENT: Denies headache, eye drainage, eye irritation, head trauma, sore throat, voice change Cardiovascular: Denies any chest pain, palpitations, tachycardia Respiratory: Positive shortness of breath, cough, wheeze GI/: Denies any abdominal pain, nausea, vomiting, diarrhea, bright red blood per rectum, melanotic stools, urinary frequency, urinary retention, dysuria, hematuria MSK: Denies any joint pain, muscle pains, swelling Skin: Denies any rashes, lesions, discoloration Neuro: Denies any headache, lightheadedness, dizziness, fainting, weakness Psych: Denies SI/HI Patient History Medical History Gastric ulcer Sternal fracture Asthma Family History Other Family history non-contributory Social History household members: family alcohol intake: former substance use type: does not use alcohol intake frequency: other Exam Narrative Exam Narrative: General: Cooperative, well-developed, not in acute distress HEENT: Normocephalic, atraumatic, PERRLA, normal sclera, eyelids normal Neck: Active full range of motion, atraumatic Chest: Normal to inspection, negative crepitus, no overlying erythema ecchymosis Respiratory: Patient is speaking in short sentences but protecting airway not requiring supplemental oxygen, there is diffuse expiratory wheezes in bilateral lung sharma Cardiology: Regular rate rhythm negative gallop, murmur, rubs GI/: No tenderness to palpation, soft, non rigid, normal to inspection, exam deferred MSK: Full active range of motion in all 4 extremities, atraumatic, no tenderness to palpation of any bony prominences Skin: No rashes or lesions noted Neuro: Alert awake oriented x3, moves all 4 extremities spontaneously, cranial nerves intact, able to answer all questions appropriately follows commands appropriately Psych: Cooperative, negative suicidal or homicidal ideations Initial Vital Signs Initial Vital Signs: Vital Signs Temperature 97.5 F L 10/15/25 22:08 Pulse Rate 97 H 10/15/25 22:08 Respiratory Rate 20 10/15/25 22:08 Blood Pressure 132/85 10/15/25 22:08 Pulse Oximetry 99 10/15/25 22:08 Oxygen Delivery Method Room Air 10/15/25 22:08 Course Orders Ordered: ED Orders 10/15/25 22:08 CBC Auto Diff [Complete Blood Count AUTO DIFF] Stat CMP [Comprehensive Metabolic Panel] Stat Discontinued Medications Albuterol (Albuterol 2.5 Mg/3 Ml Neb (Adult)) 2.5 mg INH NOW ONE Stop: 10/15/25 22:09 Last Admin: 10/15/25 22:24 Dose: 2.5 mg Albuterol (Albuterol 2.5 Mg/3 Ml Neb (Adult)) 2.5 mg INH NOW ONE Stop: 10/15/25 22:11 Last Admin: 10/15/25 22:25 Dose: 2.5 mg Albuterol/Ipratropium (Albuterol/Ipratropium 3 Ml Ampul) 3 ml INH NOW ONE Stop: 10/15/25 22:09 Last Admin: 10/15/25 22:24 Dose: 3 ml Magnesium Sulfate (Magnesium Sulfate) 2 gm in 50 mls @ 150 mls/hr IV NOW ONE Stop: 10/15/25 22:27 Last Infusion: 10/15/25 22:48 Dose: Infused Vital Signs Vital signs: Vital Signs - 8 hr 10/15/25 22:08 10/15/25 22:26 10/15/25 22:34 Temperature 97.5 F L Pulse Rate 97 H 103 H 105 H Respiratory Rate 20 20 Blood Pressure 132/85 Pulse Oximetry 99 97 99 Oxygen Delivery Method Room Air Room Air MDM - SOB/Dyspnea Lab Data 10/15/25 22:25 10/15/25 22:25 Labs: Lab Results 10/15/25 Range/Units 22:25 WBC 9.5 (4.5-11.0) X10^3/uL RBC 5.14 (4.5-5.9) X10^6/uL Hgb 14.5 (13.5-17.5) g/dL Hct 43.4 (41-53) % MCV 84.5 (80-100) fL MCH 28.3 (26-34) PG MCHC 33.5 (30-36) % RDW 13.5 (11.6-14.8) % Plt Count 313 (150-400) X10^3/uL Neut % (Auto) 50.0 (50-75) % Lymph % (Auto) 30.6 (25-40) % Knott % (Auto) 7.4 (3-14) % Eos % (Auto) 11.1 H (2-4) % Baso % (Auto) 0.9 (0-2) % Neut # (Auto) 4800 (9882-4602) /uL Lymph # (Auto) 2900 (6693-6609) /uL Knott # (Auto) 700 (0-900) /uL Eos # (Auto) 1100 H (0-450) /uL Baso # (Auto) 100 (0-100) /uL Sodium 139 (137-145) mmol/L Potassium 4.2 (3.4-5.1) mmol/L Chloride 104 (98-107) mmol/L Carbon Dioxide 27 (22-32) mmol/L BUN 16 (9-20) mg/dL Creatinine 0.75 (0.66-1.25) mg/dL Estimated GFR > 60 (>60) mL/min BUN/Creatinine Ratio 21.3 (6-22) Glucose 95 (70-99) mg/dL Calcium 8.9 (8.4-10.2) mg/dL Total Bilirubin 0.6 (0.2-1.3) mg/dL AST 28 (17-59) IU/L ALT 23 (<50) IU/L Alkaline Phosphatase 79 (38-126) U/L Total Protein 8.0 (6.3-8.2) g/dL Albumin 4.3 (3.5-5.0) g/dL Globulin 3.7 (1.7-4.1) g/dL Albumin/Globulin Ratio 1.2 (1.0-2.8) MDM Narrative Medical decision making narrative: 35-year-old male with a past medical history of asthma comes into the ED from home for evaluation of asthma exacerbation, he states that he was at his mother's house with cats which typically causes his asthma to flare up, states this was an hour ago, he states that he ran out of his asthma medication and therefore came into the ED, he is not requiring supplemental oxygen but has significant amount of expiratory wheezes bilaterally, patient had significant improvement after administration of magnesium Solu-Medrol albuterol x2 and DuoNeb. Patient's lab work was unremarkable, patient not requiring any supplemental oxygen he feels better feels comfortable being discharged home at time of discharge patient very minor expiratory wheezes bilaterally he is speaking full sentences protecting airway. Discharge Plan Departure Patient Disposition: Home Clinical Impression: Asthma exacerbation Instructions: DI for Asthma -- Adult Activity Restrictions/Additional Instructions: Please follow up with the primary care doctor as needed Please read the discharge instructions sheet carefully and bring all papers to all doctor follow-up visits, as it may contain information that your doctor may want to see. Disease processes change and evolve, if your symptoms worsen or if you develop any new symptoms that are concerning to you please return for evaluation. Your evaluation today does not show any evidence of any life-threatening/serious illnesses requiring admission to the hospital or surgery. Please follow-up with your doctor for re-evaluation in approximately 1 day. Seek immediate medical attention for any worrisome symptoms. *If you do not have a primary care provider please contact the [facility] Resource line at [phone]. They will ask some questions about your medical history and help get you set up with a doctor in the community. Prescriptions: New albuterol sulfate 90 mcg/actuation aerosol powdr breath activated 2 inh inhalation QID PRN (Reason: shortness of breath or wheezing) Qty: 1 0RF prednisone 20 mg tablet 20 mg PO BID 5 Days Qty: 10 0RF No Action albuterol sulfate 90 mcg/actuation HFA aerosol inhaler 2 puff inhalation Q6H PRN (Reason: wheezing) Qty: 8.5 2RF albuterol sulfate 2.5 mg /3 mL (0.083 %) solution for nebulization 2.5 mg inhalation QID PRN (Reason: bronchospasm) Qty: 75 0RF albuterol sulfate 90 mcg/actuation HFA aerosol inhaler 2 puff INHALATION Q4-6H PRN (Reason: shortness of breath or wheezing) Qty: 8.5 0RF albuterol sulfate 2.5 mg/0.5 mL solution for nebulization 5 mg inhalation Q6H PRN (Reason: shortness of breath or wheezing) Qty: 30 2RF albuterol sulfate 90 mcg/actuation HFA aerosol inhaler 2 puff inhalation Q4-6H PRN (Reason: shortness of breath or wheezing) Qty: 8.5 3RF Stand Alone Forms: Patient Portal/API
[2025-10-15] MEDS: MAGNESIUM SULFATE 2 GM/50 ML PIGGYBACK IV (22:23)
[2025-10-15] MEDS: ALBUTEROL/IPRATROPIUM 3 ML AMPUL INH (22:24)
[2025-10-15] MEDS: ALBUTEROL 2.5 MG/3 ML NEB (ADULT) INH ×2 (22:24→22:25)
[2025-10-15 22:26] VITALS: PULSE 117; RESP 20; O2SAT 97
[2025-10-15 22:34] VITALS: PULSE 105; O2SAT 99
[2025-10-15 22:38] LABS: Add Manual Diff / Slide Review NO; Hematocrit 43.4 % (41-53); Hemoglobin 14.5 g/dL (13.5-17.5); Lymphocytes Absolute Auto 2900 /uL (1100-4500); Mean Corpuscular HGB Conc 33.5 % (30-36); Mean Corpuscular Hemoglobin 28.3 PG (26-34); Mean Corpuscular Volume 84.5 fL (80-100); Platelet Count 313 X10^3/uL (150-400)
[2025-10-15 22:51] LABS: Alanine Aminotransferase 23 IU/L (<50); Albumin 4.3 g/dL (3.5-5.0); Albumin Globulin Ratio 1.2 (1.0-2.8); Alkaline Phosphatase 79 U/L (38-126); Blood Urea Nitrogen 16 mg/dL (9-20); Calcium 8.9 mg/dL (8.4-10.2); Carbon Dioxide 27 mmol/L (22-32); Chloride 104 mmol/L (98-107); Estimated Glomerular Filt Rate > 60 mL/min (>60); Globulin 3.7 g/dL (1.7-4.1); Glucose 95 mg/dL (70-99); HEMOLYSIS < 15 (0-50); Potassium 4.2 mmol/L (3.4-5.1); Sodium 139 mmol/L (137-145); Total Protein 8.0 g/dL (6.3-8.2)
[2025-10-15 23:00] VITALS: BP 131/90; PULSE 103; O2SAT 92
[2025-10-15] MEDS: ALBUTEROL HFA PREPACK 1 BOX MISC (23:07)
[2025-10-15] MEDS: methylPREDNISolone succ 125 MG/2 ML VIAL IV (23:07)
== END 2025-10-15 23:16 | disposition home or self-care (01) ==
PROVIDERS: Emergency Provider Student in an Organized Health Care Education/Training Program
DX: J45.901 Unspecified asthma with (acute) exacerbation (principal); Z79.51 Long term (current) use of inhaled steroids
CPT/HCPCS: 36415; 80053; 85025; 94640; 96365; 96375; 99284; J2919; J3475; J7613